=== PATIENT | female | born 1935 | race Caucasian/White ===

== ENCOUNTER 2016-11-11 22:56 | Inpatient (IN) | payer MEDICARE, BC ==
[2016-11-11] MEDS ORDERED: MORPHINE SULFATE 4 MG/ML SYRINGE IV STA (23:33)
[2016-11-11 23:48] LABS: Basophils % (A) 0 %; CH 32.5; CHCM 33.8; Eosinophils # (A) 0.1 k/uL (0-0.7); Eosinophils % (A) 1 %; HCT 34.9 % (34.0-46.0); HDW 2.76; HGB 11.5 gm/dL (11.4-16.0); Luc # (Auto) 0.14; Luc % (Auto) 1; Lymphocytes # (A) 0.6 k/uL (1.0-4.8); Lymphocytes % (A) 5 %; MCH 31.9 pg (25.0-35.0); MCV 96.8 fL (80.0-100.0); Mean Platelet Volume 9.7; Monocytes # (A) 0.6 k/uL (0-1.0); Monocytes % (A) 5 %; Neutrophils # (A) 10.6 k/uL (1.3-7.7); Neutrophils % (A) 88 %; RBC 3.61 m/uL (3.80-5.40); RDW 14.3 % (11.5-15.5); WBC (Perox) 12.61
[2016-11-11 23:56] LABS: INR 4.6 (<1.2); Prothrombin Time 45.4 sec (9.0-12.0)
[2016-11-11 23:57] LABS: Calcium 9.2 mg/dL (8.4-10.2); Potassium 4.6 mmol/L (3.5-5.1); Total Bilirubin 0.3 mg/dL (0.2-1.3); Total Protein 6.9 g/dL (6.3-8.2)
--- NOTE | 2016-11-12 00:35 | XR ---
EXAM: XR Right Hip 2 Views CLINICAL HISTORY: Reason: fall TECHNIQUE: Frontal and crosstable lateral views of the right hip. COMPARISON: No relevant prior studies available. FINDINGS: Bones/joints: Basocervical right femoral neck fracture with 1 cm separation and superior displacement. Osteopenia. No dislocation. Soft tissues: Muscle atrophy. IMPRESSION: Basocervical right femoral neck fracture with 1 cm separation and superior displacement.
--- NOTE | 2016-11-12 00:42 | XR ---
EXAM: XR Chest, 1 View CLINICAL HISTORY: Reason: fall TECHNIQUE: Frontal view of the chest. COMPARISON: 11/06/15 FINDINGS: Lungs: Granulomatous calcifications over right upper lung zone are again noted. Otherwise lungs are clear Pleural space: Unremarkable. No pneumothorax. Heart: Unremarkable. No cardiomegaly. Mediastinum: Unremarkable. Bones/joints: Unremarkable. Vasculature: Aorta is calcified IMPRESSION: No acute findings or change.
[2016-11-12] MEDS ORDERED: ACETAMINOPHEN TAB 325 MG TAB PO PRN (01:12)
[2016-11-12] MEDS ORDERED: NALOXONE 0.4 MG/ML 1 ML VIAL IV PRN (01:12)
[2016-11-12] MEDS ORDERED: ONDANSETRON 4 MG/2 ML VIAL IVP PRN (01:12)
[2016-11-12] MEDS: SODIUM CHLORIDE 0.9% 1,000 ML IV SCH ×2 (01:22→16:56)
[2016-11-12] MEDS ORDERED: ALPRAZolam 0.25 MG TAB PO PRN (01:25)
--- NOTE | 2016-11-12 01:25 | ED ---
General Adult HPI - General Chief complaint: Fall Stated complaint: Fall Time Seen by Provider: 11/11/16 23:07 Source: patient, family, RN notes reviewed Mode of arrival: wheelchair Limitations: no limitations - History of Present Illness Initial comments: 81-year-old female presents status post fall. Patient was trying to look the television, and tripped falling onto her right side. Patient's chief complaint is right hip pain. She was unable to ambulate after the fall. There is no head or neck trauma. Patient has no chest pain or shortness breath, no abdominal pain. No other pain complaints besides right hip pain is constant, worse with movement. Patient is on Coumadin. - Related Data Home Medications Medication Instructions Recorded Confirmed Acetaminophen Tab [Tylenol] 650 mg PO Q4H PRN 01/05/14 11/11/16 Amiodarone [Cordarone] 200 mg PO DAILY 01/05/14 11/11/16 Atorvastatin [Lipitor] 10 mg PO HS 01/05/14 11/11/16 Cholecalciferol [Vitamin D3] 400 unit PO DAILY 01/05/14 11/11/16 Fluticasone/Salmeterol [Advair 1 puff INHALATION RT-BID 01/05/14 11/11/16 250-50 Diskus] Multivitamins, Thera [Multivitamin 1 tab PO DAILY 01/05/14 11/11/16 (formulary)] Omeprazole [PriLOSEC] 40 mg PO AC-BRKFST 01/05/14 11/11/16 Warfarin [Coumadin] 2.5 mg PO MOTH 01/05/14 11/11/16 ALPRAZolam [Xanax] 0.25 mg PO HS PRN 01/07/14 11/11/16 Famotidine [Pepcid] 20 mg PO BID 11/06/15 11/11/16 Furosemide [Lasix] 20 mg PO DAILY 11/06/15 11/11/16 Ipratropium-Albuterol Nebulize 3 ml INHALATION RT-TID 11/06/15 11/11/16 [Duoneb 0.5 mg-3 mg/3 ml Soln] Tiotropium 18 Mcg/Puff [Spiriva] 1 cap INHALATION RT-DAILY 11/06/15 11/11/16 Warfarin [Coumadin] 1.25 mg PO [id number] 11/06/15 11/11/16 Previous Rx's Medication Instructions Recorded Digoxin [Lanoxin] 125 mcg PO DAILY #30 tab 01/10/14 Metoprolol Tartrate [Lopressor] 25 mg PO BID #60 tab 01/10/14 Lisinopril [Zestril] 20 mg PO DAILY #30 tab 11/10/15 Meclizine [Antivert] 25 mg PO TID #15 tab 11/10/15 Allergies Allergy/AdvReac Type Severity Reaction Status Date / Time No Known Allergies Allergy Verified 11/11/16 23:03 Review of Systems ROS Statement: Those systems with pertinent positive or pertinent negative responses have been documented in the HPI. ROS Other: All systems not noted in ROS Statement are negative. Past Medical History Past Medical History: Atrial Fibrillation, Heart Failure, COPD, GI Bleed, Hypertension, Liver Disease, Pneumonia, Respiratory Disorder Additional Past Medical History / Comment(s): Home O2 at 2L/NC most of the time , bilateral leg blockages and an aortic aneurysm being monitored by dr. pena. 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 History of Any Multi-Drug Resistant Organisms: None Reported Additional Past Surgical History / Comment(s): STOMACH REPAIR FROM BLEEDING IN 2006. COLONOSCOPY IN 2007 WHERE HER BOWEL WAS NICKED AND SHE WENT FOR SURGICAL REPAIR. ONE OVARY REMOVED DUE TO CYST YEARS AGO. Past Anesthesia/Blood Transfusion Reactions: No Reported Reaction Additional Past Anesthesia/Blood Transfusion Reaction / Comment(s): PT RECIEVED BLOOD 45YRS AGO AFTER MISCARRIAGE-NO REACTION. Past Psychological History: No Psychological Hx Reported Smoking Status: Former smoker Past Alcohol Use History: None Reported Past Drug Use History: None Reported - Past Family History Father Family Medical History: Coronary Artery Disease (CAD), Myocardial Infarction ([place] ) Additional Family Medical History / Comment(s): FATHER AT AGE 66 OF [place] Mother Family Medical History: No Reported History Additional Family Medical History / Comment(s): MOTHER AT AGE 82 OF "OLD AGE" General Exam Limitations: no limitations General appearance: alert, in no apparent distress Head exam: Present: atraumatic, normocephalic Eye exam: Present: normal appearance, PERRL ENT exam: Present: mucous membranes dry Neck exam: Present: normal inspection, full ROM. Absent: tenderness, meningismus Respiratory exam: Present: normal lung sounds bilaterally. Absent: respiratory distress Cardiovascular Exam: Present: normal rhythm, bradycardia GI/Abdominal exam: Present: soft. Absent: distended, tenderness Extremities exam: Present: tenderness (Right hip), normal capillary refill, other (Right lower extremity is externally rotated in mildly shortened). Absent : pedal edema Back exam: Present: normal inspection Neurological exam: Present: alert, oriented X3, CN II-XII intact. Absent: motor sensory deficit Psychiatric exam: Present: normal affect, normal mood Skin exam: Present: warm, dry, intact. Absent: cyanosis, diaphoretic Course Vital Signs 11/11/16 11/11/16 22:57 23:47 Temperature 97.1 F L Pulse Rate 55 L 50 L Respiratory 22 18 Rate Blood Pressure 216/81 179/75 O2 Sat by Pulse 94 L 97 Oximetry EKG Findings - EKG Comments: EKG Findings:: EKG shows sinus bradycardia, ventricular 50, [place] interval 164, QRS duration 80, QTc 3:30 or signs of left ventricular hypertrophy Medical Decision Making - Medical Decision Making 81-year-old female presents status post fall. Patient's found to have her right femoral neck fracture. No other injuries noted on examination. There is no head or neck trauma. Patient is on Coumadin for atrial fibrillation, INR is supratherapeutic at 4.6. Other laboratory studies reveal stable hemoglobin 0.5 , creatinine is 1.2 mildly elevated. Chest x-ray shows no acute findings. Patient is started on IV hydration. Case is discussed with orthopedic surgery and she will be admitted for operative repair of right hip fracture. Internal medicine is placed on consult for medical clearance, and INR reversal. Diagnosis: Right hip fracture - Lab Data Result diagrams: 11/11/16 23:25 11/11/16 23:25 Lab Results 11/11/16 11/11/16 11/11/16 Range/Units 23:25 23:25 23:25 WBC 12.0 H (3.8-10.6) k/uL RBC 3.61 L (3.80-5.40) m/uL Hgb 11.5 (11.4-16.0) gm/dL Hct 34.9 (34.0-46.0) % MCV 96.8 (80.0-100.0) fL MCH 31.9 (25.0-35.0) pg MCHC 33.0 (31.0-37.0) g/dL RDW 14.3 (11.5-15.5) % Plt Count 170 (150-450) k/uL Neutrophils % 88 % Lymphocytes % 5 % Monocytes % 5 % Eosinophils % 1 % Basophils % 0 % Neutrophils # 10.6 H (1.3-7.7) k/uL Lymphocytes # 0.6 L (1.0-4.8) k/uL Monocytes # 0.6 (0-1.0) k/uL Eosinophils # 0.1 (0-0.7) k/uL Basophils # 0.0 (0-0.2) k/uL PT (9.0-12.0) sec INR (<1.2) APTT (22.0-30.0) sec Sodium 141 (137-145) mmol/L Potassium 4.6 (3.5-5.1) mmol/L Chloride 98 (98-107) mmol/L Carbon Dioxide 34 H (22-30) mmol/L Anion Gap 9 mmol/L BUN 23 H (7-17) mg/dL Creatinine 1.20 H (0.52-1.04) mg/dL Est GFR (MDRD) Af Amer 52 (>60 ml/min/1.73 sqM) Est GFR (MDRD) Non-Af 43 (>60 ml/min/1.73 sqM) Glucose 154 H (74-99) mg/dL Calcium 9.2 (8.4-10.2) mg/dL Total Bilirubin 0.3 (0.2-1.3) mg/dL AST 45 H (14-36) U/L ALT 60 H (9-52) U/L Alkaline Phosphatase 72 (38-126) U/L Total Protein 6.9 (6.3-8.2) g/dL Albumin 4.0 (3.5-5.0) g/dL Blood Type A Positive Blood Type Confirm Blood Type Recheck CABO Indicated Antibody Screen NEGATIVE Spec Expiration Date 11/14/2016232411/11/16 11/12/16 Range/Units 23:25 00:31 WBC (3.8-10.6) k/uL RBC (3.80-5.40) m/uL Hgb (11.4-16.0) gm/dL Hct (34.0-46.0) % MCV (80.0-100.0) fL MCH (25.0-35.0) pg MCHC (31.0-37.0) g/dL RDW (11.5-15.5) % Plt Count (150-450) k/uL Neutrophils % % Lymphocytes % % Monocytes % % Eosinophils % % Basophils % % Neutrophils # (1.3-7.7) k/uL Lymphocytes # (1.0-4.8) k/uL Monocytes # (0-1.0) k/uL Eosinophils # (0-0.7) k/uL Basophils # (0-0.2) k/uL PT 45.4 H (9.0-12.0) sec INR 4.6 H (<1.2) APTT 28.0 (22.0-30.0) sec Sodium (137-145) mmol/L Potassium (3.5-5.1) mmol/L Chloride (98-107) mmol/L Carbon Dioxide (22-30) mmol/L Anion Gap mmol/L BUN (7-17) mg/dL Creatinine (0.52-1.04) mg/dL Est GFR (MDRD) Af Amer (>60 ml/min/1.73 sqM) Est GFR (MDRD) Non-Af (>60 ml/min/1.73 sqM) Glucose (74-99) mg/dL Calcium (8.4-10.2) mg/dL Total Bilirubin (0.2-1.3) mg/dL AST (14-36) U/L ALT (9-52) U/L Alkaline Phosphatase (38-126) U/L Total Protein (6.3-8.2) g/dL Albumin (3.5-5.0) g/dL Blood Type Blood Type Confirm A Positive Blood Type Recheck Antibody Screen Spec Expiration Date Disposition Clinical Impression: Hip fracture, right Disposition: ADMITTED IP TO THIS [facility] Condition: Stable Referrals: Magui Kim MD [Primary Care Provider] - 1-2 days Decision to Admit Reason: Admit from EC Decision Date: 11/12/16 Decision Time: 01:25
[2016-11-12] MEDS: MECLIZINE 25 MG TAB PO SCH ×2 (08:00→16:30)
[2016-11-12] MEDS: METOPROLOL TARTRATE 25 MG TAB PO SCH ×2 (08:00→23:55)
[2016-11-12] MEDS: FUROSEMIDE 20 MG TAB PO SCH (08:00)
[2016-11-12] MEDS ORDERED: DIGOXIN 125 MCG TAB PO SCH (09:00)
[2016-11-12] MEDS: MORPHINE SULFATE 4 MG/ML SYRINGE IV PRN ×2 (09:26→12:55)
--- NOTE | 2016-11-12 14:21 | P.HPOR ---
History of Present Illness H&P Date: 11/12/16 Chief Complaint: Right hip fracture Patient is a pleasant 81-year-old female seen at bedside this afternoon. She was admitted through the emergency department yesterday after a fall at home. She states she lives at home alone, was walking to her pantry, stumbled and fell to her right side. She was unable to ambulate after her fall. She's had pain at the right hip and lower extremity. X-rays through the emergency department showed a right hip femoral neck fracture. She was admitted to orthopedics for further evaluation and treatment. She has a past medical history positive for atrial fibrillation and history of HI. She's been on chronic Coumadin. PT yesterday resulted in 4.6 which is supratherapeutic. Internal medicine has been consulted for further evaluation and management and preoperative clearance. She continues to have right hip/groin pain. She has no other complaints today. Review of systems is negative for fever, chills, chest pain, nausea, vomiting, dizziness, headaches, rashes, numbness, tingling, slurred speech or other. Review of Systems All systems: negative Constitutional: Denies chills, Denies fever Eyes: denies blurred vision, denies pain Ears, nose, mouth and throat: Denies headache, Denies sore throat Cardiovascular: Reports shortness of breath, Denies chest pain, Denies leg edema Respiratory: Reports cough, Denies pain Gastrointestinal: Denies abdominal pain, Denies diarrhea, Denies nausea, Denies vomiting Genitourinary: Denies dysuria, Denies hematuria Musculoskeletal: Denies myalgias Integumentary: Denies pruritus, Denies rash Neurological: Denies numbness, Denies weakness Psychiatric: Denies anxiety, Denies depression Endocrine: Denies fatigue, Denies weight change Past Medical History Past Medical History: Atrial Fibrillation, Heart Failure, COPD, GI Bleed, Hypertension, Liver Disease, Pneumonia, Respiratory Disorder Additional Past Medical History / Comment(s): Home O2 at 2L/NC most of the time , bilateral leg blockages and an aortic aneurysm being monitored by dr. pena. 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 History of Any Multi-Drug Resistant Organisms: None Reported Additional Past Surgical History / Comment(s): STOMACH REPAIR FROM BLEEDING IN 2006. COLONOSCOPY IN 2007 WHERE HER BOWEL WAS NICKED AND SHE WENT FOR SURGICAL REPAIR. ONE OVARY REMOVED DUE TO CYST YEARS AGO. Past Anesthesia/Blood Transfusion Reactions: No Reported Reaction Additional Past Anesthesia/Blood Transfusion Reaction / Comment(s): PT RECIEVED BLOOD 45YRS AGO AFTER MISCARRIAGE-NO REACTION. Past Psychological History: No Psychological Hx Reported Additional Psychological History / Comment(s): PT LIVES ALONE BUT SON AND GIRLFRIEND LIVE NEXT DOOR AND HELP HER WITH ANYTHING SHE NEEDS. NORMALLY SHE IS UP AND ABOUT ALL THE TIME. USES A WALKER AT TIMES. Has home O2/nebulizer. Pt has not driven for 1 month-unsure if she will have a syncopal episode-family takes her to appts. Smoking Status: Former smoker Past Alcohol Use History: None Reported Past Drug Use History: None Reported - Past Family History Father Family Medical History: Coronary Artery Disease (CAD), Myocardial Infarction ([place] ) Additional Family Medical History / Comment(s): FATHER AT AGE 66 OF [place] Mother Family Medical History: No Reported History Additional Family Medical History / Comment(s): MOTHER AT AGE 82 OF "OLD AGE" Medications and Allergies Home Medications Medication Instructions Recorded Confirmed Type Acetaminophen Tab [Tylenol] 650 mg PO Q4H PRN 01/05/14 11/12/16 History Amiodarone [Cordarone] 200 mg PO DAILY 01/05/14 11/12/16 History Atorvastatin [Lipitor] 10 mg PO HS 01/05/14 11/12/16 History Cholecalciferol [Vitamin D3] 400 unit PO DAILY 01/05/14 11/12/16 History Fluticasone/Salmeterol [Advair 1 puff INHALATION RT-BID 01/05/14 11/12/16 History 250-50 Diskus] Multivitamins, Thera [Multivitamin 1 tab PO DAILY 01/05/14 11/12/16 History (formulary)] Omeprazole [PriLOSEC] 40 mg PO AC-BRKFST 01/05/14 11/12/16 History Warfarin [Coumadin] 2.5 mg PO HS 01/05/14 11/12/16 History ALPRAZolam [Xanax] 0.25 mg PO HS PRN 01/07/14 11/12/16 History Digoxin [Lanoxin] 125 mcg PO DAILY #30 tab 01/10/14 11/12/16 Rx Metoprolol Tartrate [Lopressor] 25 mg PO BID #60 tab 01/10/14 11/12/16 Rx Famotidine [Pepcid] 20 mg PO BID 11/06/15 11/12/16 History Furosemide [Lasix] 20 mg PO DAILY 11/06/15 11/12/16 History Ipratropium-Albuterol Nebulize 3 ml INHALATION RT-TID PRN 11/06/15 11/12/16 History [Duoneb 0.5 mg-3 mg/3 ml Soln] Tiotropium 18 Mcg/Puff [Spiriva] 1 cap INHALATION RT-DAILY 11/06/15 11/12/16 History Lisinopril [Zestril] 20 mg PO DAILY #30 tab 11/10/15 11/12/16 Rx Latanoprost Ophth [Xalatan 0.005%] 1 drops BOTH EYES HS 11/12/16 11/12/16 History Allergies Allergy/AdvReac Type Severity Reaction Status Date / Time No Known Allergies Allergy Verified 11/11/16 23:03 Physical Examination Inspection of the right lower extremity shows a shortened external rotated right leg. Range of motion of the right hip is not tested due to fracture. There is no open wounds, erythema or lacerations. Neurovascular status is intact with motor and sensation throughout the right lower extremity. Calf is soft and nontender. There is 2+ dorsalis pedis pulse and less than 2 second cap refill. Results - Labs Labs: Abnormal Lab Results - Last 24 Hours (Table) 11/11/16 11/11/16 11/11/16 Range/Units 23:25 23:25 23:25 WBC 12.0 H (3.8-10.6) k/uL RBC 3.61 L (3.80-5.40) m/uL Neutrophils # 10.6 H (1.3-7.7) k/uL Lymphocytes # 0.6 L (1.0-4.8) k/uL PT 45.4 H (9.0-12.0) sec INR 4.6 H (<1.2) Carbon Dioxide 34 H (22-30) mmol/L BUN 23 H (7-17) mg/dL Creatinine 1.20 H (0.52-1.04) mg/dL Glucose 154 H (74-99) mg/dL AST 45 H (14-36) U/L ALT 60 H (9-52) U/L H & H 11/11/16 Range/Units 23:25 Hgb 11.5 (11.4-16.0) gm/dL Hct 34.9 (34.0-46.0) % Coagulation 11/11/16 Range/Units 23:25 INR 4.6 H (<1.2) Result Diagrams: 11/11/16 23:25 11/11/16 23:25 - Diagnostic results Hip x-ray: report reviewed, image reviewed (Right Hip x-ray shows a femoral neck fracture with shortening and displacement.) Assessment and Plan (1) Hip fracture, right Narrative/Plan: This patient has been reviewed with Dr. Almanzar. Plan is to proceed with surgical intervention including a cemented right hip hemiarthroplasty once her INR level comes down and she is cleared by internal medicine/cardiology. She is tentatively scheduled for 12 PM tomorrow 11/13/2016. She is nothing by mouth after midnight and the procedure has been scheduled and ordered. Status: Acute Time with Patient: Less than 30
[2016-11-12] MEDS ORDERED: PHYTONADIONE ORAL 5 MG/5 ML ORAL.SYRG PO STA (15:00)
--- NOTE | 2016-11-12 16:08 | P.CNPUL ---
History of Present Illness Consult date: 11/12/16 Requesting physician: Gavin Del Valle Reason for consult: COPD Chief complaint: COPD and right hip fracture History of present illness: This is an 81-year-old female with history of severe end-stage COPD, gold stage IV, O2 dependent, but not prednisone dependent, normally sees Dr. Hastings in the office. Patient fell today, and she landed on her right side. Apparently when she was trying to get to that television, patient tripped and fell on the right side. X-rays of the hip showed right hip fracture, patient was admitted, she was seen by orthopedics on consultation, surgery is being considered, I was asked to see her on consultation for preoperative pulmonary clearance. Patient has chronic shortness of breath, occasional episodes of cough wheezing, no chest pain, no fever, no chills, no hemoptysis. Chest x-ray showed COPD and no evidence of active disease. Patient is also known to have history of chronic atrial fibrillation. On Coumadin. History of congestive heart failure. GI bleeding. And previous history of abdominal aortic aneurysm, spinal stenosis, gastritis, chronic liver disease secondary to old dennis level of this disease, and history of protein calorie malnutrition. Review of Systems 14 point review of systems were obtained, patient denies any headaches no blurred vision no dizziness. No chest pain, no cough no wheezing no fever no chills no hemoptysis, she has chronic shortness of breath on exertion. Denies any chest pain, no palpitations, no nausea no vomiting no abdominal pain no melena no hematemesis no dysuria and no frequency no urgency. Patient has pain related to her right hip fracture. Past Medical History Past Medical History: Atrial Fibrillation, Heart Failure, COPD, GI Bleed, Hypertension, Liver Disease, Pneumonia, Respiratory Disorder Additional Past Medical History / Comment(s): Home O2 at 2L/NC most of the time , bilateral leg blockages and an aortic aneurysm being monitored by dr. pena. 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 History of Any Multi-Drug Resistant Organisms: None Reported Additional Past Surgical History / Comment(s): STOMACH REPAIR FROM BLEEDING IN 2006. COLONOSCOPY IN 2007 WHERE HER BOWEL WAS NICKED AND SHE WENT FOR SURGICAL REPAIR. ONE OVARY REMOVED DUE TO CYST YEARS AGO. Past Anesthesia/Blood Transfusion Reactions: No Reported Reaction Additional Past Anesthesia/Blood Transfusion Reaction / Comment(s): PT RECIEVED BLOOD 45YRS AGO AFTER MISCARRIAGE-NO REACTION. Past Psychological History: No Psychological Hx Reported Additional Psychological History / Comment(s): PT LIVES ALONE BUT SON AND GIRLFRIEND LIVE NEXT DOOR AND HELP HER WITH ANYTHING SHE NEEDS. NORMALLY SHE IS UP AND ABOUT ALL THE TIME. USES A WALKER AT TIMES. Has home O2/nebulizer. Pt has not driven for 1 month-unsure if she will have a syncopal episode-family takes her to appts. Smoking Status: Former smoker Past Alcohol Use History: None Reported Past Drug Use History: None Reported - Past Family History Father Family Medical History: Coronary Artery Disease (CAD), Myocardial Infarction ([place] ) Additional Family Medical History / Comment(s): FATHER AT AGE 66 OF [place] Mother Family Medical History: No Reported History Additional Family Medical History / Comment(s): MOTHER AT AGE 82 OF "OLD AGE" Medications and Allergies Home Medications Medication Instructions Recorded Confirmed Type Acetaminophen Tab [Tylenol] 650 mg PO Q4H PRN 01/05/14 11/12/16 History Amiodarone [Cordarone] 200 mg PO DAILY 01/05/14 11/12/16 History Atorvastatin [Lipitor] 10 mg PO HS 01/05/14 11/12/16 History Cholecalciferol [Vitamin D3] 400 unit PO DAILY 01/05/14 11/12/16 History Fluticasone/Salmeterol [Advair 1 puff INHALATION RT-BID 01/05/14 11/12/16 History 250-50 Diskus] Multivitamins, Thera [Multivitamin 1 tab PO DAILY 01/05/14 11/12/16 History (formulary)] Omeprazole [PriLOSEC] 40 mg PO AC-BRKFST 01/05/14 11/12/16 History Warfarin [Coumadin] 2.5 mg PO HS 01/05/14 11/12/16 History ALPRAZolam [Xanax] 0.25 mg PO HS PRN 01/07/14 11/12/16 History Digoxin [Lanoxin] 125 mcg PO DAILY #30 tab 01/10/14 11/12/16 Rx Metoprolol Tartrate [Lopressor] 25 mg PO BID #60 tab 01/10/14 11/12/16 Rx Famotidine [Pepcid] 20 mg PO BID 11/06/15 11/12/16 History Furosemide [Lasix] 20 mg PO DAILY 11/06/15 11/12/16 History Ipratropium-Albuterol Nebulize 3 ml INHALATION RT-TID PRN 11/06/15 11/12/16 History [Duoneb 0.5 mg-3 mg/3 ml Soln] Tiotropium 18 Mcg/Puff [Spiriva] 1 cap INHALATION RT-DAILY 11/06/15 11/12/16 History Lisinopril [Zestril] 20 mg PO DAILY #30 tab 11/10/15 11/12/16 Rx Latanoprost Ophth [Xalatan 0.005%] 1 drops BOTH EYES HS 11/12/16 11/12/16 History Allergies Allergy/AdvReac Type Severity Reaction Status Date / Time No Known Allergies Allergy Verified 11/11/16 23:03 Physical Exam Vitals: Vital Signs Temp Pulse Pulse Resp BP BP Pulse Ox 11/12/16 15:00 98.0 F 60 17 179/63 93 L 11/12/16 11:06 97.4 F L 60 19 136/59 98 11/12/16 08:41 96.9 F L 54 L 18 184/75 98 11/12/16 03:10 98.1 F 54 L 18 153/62 96 11/12/16 01:15 98.7 F 55 L 18 170/70 97 11/11/16 23:47 50 L 18 179/75 97 11/11/16 22:57 97.1 F L 55 L 22 216/81 94 L Intake and Output 11/12/16 11/12/16 11/12/16 06:59 14:59 22:59 Intake Total 225 Output Total 500 Balance 225 -500 Intake: Intake, IV Titration 225 Amount Sodium Chloride 0.9% 1, 225 000 ml @ 75 mls/hr IV . [id number] [facility] Rx#:[id number] Output: Urine 500 Other: Voiding Method Indwelling Catheter Indwelling Catheter Weight 33.112 kg 33.112 kg Patient Weight 11/13/16 06:59 Weight 33.112 kg Physical Exam: Revealed an 81-year-old female, frail looking, chronically ill, in no form of respiratory distress. HEENT:[Neck is supple.] [No neck masses.] [No thyromegaly.] [No JVD.] Chest: [Diminished breath sounds at the bases, no crackles or rhonchi or wheezes ] Cardiac Exam: [Normal S1 and S2, no S3 gallop, no murmur.] Abdomen: [Soft, nontender, no megaly, no rebound, no guarding, normal bowel sounds.] Extremities: [No clubbing, no edema, no cyanosis. External rotation of the right lower extremity is noted] Neurological Exam: [No focal neurologic deficit.] Results - Laboratory Findings CBC and BMP: 11/11/16 23:25 11/11/16 23:25 PT/INR, D-dimer PT 45.4 sec (9.0-12.0) H 11/11/16 23:25 INR 4.6 (<1.2) H 11/11/16 23:25 Abnormal lab findings: Abnormal Labs 11/11/16 11/11/16 11/11/16 23:25 23:25 23:25 WBC 12.0 H RBC 3.61 L Neutrophils # 10.6 H Lymphocytes # 0.6 L PT 45.4 H INR 4.6 H Carbon Dioxide 34 H BUN 23 H Creatinine 1.20 H Glucose 154 H AST 45 H ALT 60 H - Diagnostic Findings Chest x-ray: image reviewed (COPD, no evidence of active disease.) Additional studies: Right hip chest x-ray showed right femoral neck fracture and superior displacement. Assessment and Plan Plan: Impression: 1 acute right hip fracture/right femoral neck with separation and superior displacement 2 severe gold stage IV COPD, chronic hypoxic respiratory failure. Secondary to COPD. 3 history of multiple comorbidities including peripheral vessel occlusive disease, abdominal aortic aneurysm, spinal stenosis, chronic liver disease/ granulomatous disease, history of protein calorie malnutrition, history of stomach bleeding requiring repair in 2006. History of chronic atrial fibrillation, on Coumadin. And on amiodarone. Recommendation: Continue present treatment plan including bronchodilators, O2, patient is definitely a high surgical risk, but no absolute contraindication to surgery, however if surgery is to be done, I would strongly recommend surgery under spinal anesthesia or other than general anesthesia, mostly because of her underlying COPD, and this patient to be difficult to wean and extubate excess fully within a short period of time. We'll continue to follow. Time with Patient: Greater than 30
[2016-11-12 16:40] LABS: Appearance,Urine Clear (Clear); Bacteria,Urine Rare /hpf; Bilirubin,Urine Negative (Negative); Glucose,Urine (UA) Negative (Negative); Ketones,Urine Negative (Negative); Leukocyte Esterase,Urine Large (Negative); Mucus,Urine Rare /hpf; Nitrite,Urine Negative (Negative); Particle Count 2300; Protein,Urine Trace (Negative); RBC,Urine >182 /hpf (0-5); Specific Gravity,Urine 1.011 (1.001-1.035); UA Billing (MACRO vs. MICRO) MICRO; Urobilinogen,Urine <2.0 mg/dL (<2.0); WBC,Urine 70 /hpf (0-5)
[2016-11-12] MEDS ORDERED: predniSONE 20 MG TAB PO STA (18:40)
--- NOTE | 2016-11-12 18:40 | P.CONS ---
History of Present Illness - Reason for Consult Consult date: 11/12/16 Medical clearance - History of Present Illness 81-year-old female with history of COPD, end-stage chronic hypoxic respiratory failure comes in to the hospital after sustaining a fall patient apparently walked into her closet and thereafter sustained a fall patient was noted to have a hip fracture patient has never lost consciousness nor hit her head. Consultation was requested for medical clearance and management of her chronic issues as well Patient has a history of COPD, CAD, abdominal aortic aneurysm. Patient has also been having a cough for the last 3-4 days. A chest x-ray does not show any pneumonic infiltrate at this time continues to be on 2 L supplemental oxygen She has a history of CAD underwent a cardiac catheterization in October 2015 no intervention was performed at that time. At this time patient main complaint is that she has pain in her hip denies having any fevers chills nausea vomiting diarrhea in the recent times Review of systems a 14 point review of systems was done nonpertinent then all as mentioned above Gen. appearance cachectic does not appear to be in distress Neck is supple no JVD Lungs diminished breath sounds rhonchi appreciated bilaterally however transmitted from the hypopharynx Heart S1-S2 heard no murmurs appreciated regular rate and rhythm abdomen is soft nontender no organomegaly hip flexion produces tenderness Aguayo catheter is in place Neuro no focal motor or sensory deficits. Assessment and plan #1 hip fracture #2 acute bronchitis. #3 end-stage COPD #4 chronic hypoxic respiratory failure or graft #5 CAD #6 abdominal aortic aneurysm #7 severe protein calorie malnutrition #8 Coumadin coagulopathy #9 history of atrial fibrillation. Plan I did discuss the case with orthopedics. Patient is a high risk from a cardiovascular and a pulmonary perspective however did recommend evaluation by her form carpenter. Discussed that if patient is intubated for general anesthesia would likely be extremely difficult for the patient to wean off the ventilator however patient does need to undergo the surgery. Patient verbalized understanding her risks. 5 mg of vitamin K will also be given an order for the surgical procedure tomorrow We'll follow patient along with you thank you for the consultation. Past Medical History Past Medical History: Atrial Fibrillation, Heart Failure, COPD, GI Bleed, Hypertension, Liver Disease, Pneumonia, Respiratory Disorder Additional Past Medical History / Comment(s): Home O2 at 2L/NC most of the time , bilateral leg blockages and an aortic aneurysm being monitored by dr. pena. 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 History of Any Multi-Drug Resistant Organisms: None Reported Additional Past Surgical History / Comment(s): STOMACH REPAIR FROM BLEEDING IN 2006. COLONOSCOPY IN 2007 WHERE HER BOWEL WAS NICKED AND SHE WENT FOR SURGICAL REPAIR. ONE OVARY REMOVED DUE TO CYST YEARS AGO. Past Anesthesia/Blood Transfusion Reactions: No Reported Reaction Additional Past Anesthesia/Blood Transfusion Reaction / Comm: PT RECIEVED BLOOD 45YRS AGO AFTER MISCARRIAGE-NO REACTION. Past Psychological History: No Psychological Hx Reported Additional Psychological History / Comment(s): PT LIVES ALONE BUT SON AND GIRLFRIEND LIVE NEXT DOOR AND HELP HER WITH ANYTHING SHE NEEDS. NORMALLY SHE IS UP AND ABOUT ALL THE TIME. USES A WALKER AT TIMES. Has home O2/nebulizer. Pt has not driven for 1 month-unsure if she will have a syncopal episode-family takes her to appts. Smoking Status: Former smoker Past Alcohol Use History: None Reported Past Drug Use History: None Reported - Past Family History Father Family Medical History: Coronary Artery Disease (CAD), Myocardial Infarction (OR ) Additional Family Medical History / Comment(s): FATHER AT AGE 66 OF OR Mother Family Medical History: No Reported History Additional Family Medical History / Comment(s): MOTHER AT AGE 82 OF "OLD AGE" Medications and Allergies Home Medications Medication Instructions Recorded Confirmed Type Acetaminophen Tab [Tylenol] 650 mg PO Q4H PRN 01/05/14 11/12/16 History Amiodarone [Cordarone] 200 mg PO DAILY 01/05/14 11/12/16 History Atorvastatin [Lipitor] 10 mg PO HS 01/05/14 11/12/16 History Cholecalciferol [Vitamin D3] 400 unit PO DAILY 01/05/14 11/12/16 History Fluticasone/Salmeterol [Advair 1 puff INHALATION RT-BID 01/05/14 11/12/16 History 250-50 Diskus] Multivitamins, Thera [Multivitamin 1 tab PO DAILY 01/05/14 11/12/16 History (formulary)] Omeprazole [PriLOSEC] 40 mg PO AC-BRKFST 01/05/14 11/12/16 History Warfarin [Coumadin] 2.5 mg PO HS 01/05/14 11/12/16 History ALPRAZolam [Xanax] 0.25 mg PO HS PRN 01/07/14 11/12/16 History Digoxin [Lanoxin] 125 mcg PO DAILY #30 tab 01/10/14 11/12/16 Rx Metoprolol Tartrate [Lopressor] 25 mg PO BID #60 tab 01/10/14 11/12/16 Rx Famotidine [Pepcid] 20 mg PO BID 11/06/15 11/12/16 History Furosemide [Lasix] 20 mg PO DAILY 11/06/15 11/12/16 History Ipratropium-Albuterol Nebulize 3 ml INHALATION RT-TID PRN 11/06/15 11/12/16 History [Duoneb 0.5 mg-3 mg/3 ml Soln] Tiotropium 18 Mcg/Puff [Spiriva] 1 cap INHALATION RT-DAILY 11/06/15 11/12/16 History Lisinopril [Zestril] 20 mg PO DAILY #30 tab 11/10/15 11/12/16 Rx Latanoprost Ophth [Xalatan 0.005%] 1 drops BOTH EYES HS 11/12/16 11/12/16 History Allergies Allergy/AdvReac Type Severity Reaction Status Date / Time No Known Allergies Allergy Verified 11/11/16 23:03 Physical Exam Vitals: Vital Signs Temp Pulse Pulse Resp BP BP Pulse Ox 11/12/16 15:00 98.0 F 60 17 179/63 93 L 11/12/16 11:06 97.4 F L 60 19 136/59 98 11/12/16 08:41 96.9 F L 54 L 18 184/75 98 11/12/16 03:10 98.1 F 54 L 18 153/62 96 11/12/16 01:15 98.7 F 55 L 18 170/70 97 11/11/16 23:47 50 L 18 179/75 97 11/11/16 22:57 97.1 F L 55 L 22 216/81 94 L Intake and Output 11/12/16 11/12/16 11/12/16 06:59 14:59 22:59 Intake Total 225 Output Total 500 200 Balance 225 -500 -200 Intake: Intake, IV Titration 225 Amount Sodium Chloride 0.9% 1, 225 000 ml @ 75 mls/hr IV . [id number] [facility] Rx#:[id number] Output: Urine 500 200 Other: Voiding Method Indwelling Catheter Indwelling Catheter Indwelling Catheter Weight 33.112 kg 33.112 kg Patient Weight 11/13/16 06:59 Weight 33.112 kg Results CBC & Chem 7: 11/11/16 23:25 11/11/16 23:25 Labs: Abnormal Lab Results - Last 24 Hours (Table) 11/11/16 11/11/16 11/11/16 Range/Units 23:25 23:25 23:25 WBC 12.0 H (3.8-10.6) k/uL RBC 3.61 L (3.80-5.40) m/uL Neutrophils # 10.6 H (1.3-7.7) k/uL Lymphocytes # 0.6 L (1.0-4.8) k/uL PT 45.4 H (9.0-12.0) sec INR 4.6 H (<1.2) Carbon Dioxide 34 H (22-30) mmol/L BUN 23 H (7-17) mg/dL Creatinine 1.20 H (0.52-1.04) mg/dL Glucose 154 H (74-99) mg/dL AST 45 H (14-36) U/L ALT 60 H (9-52) U/L Urine Protein (Negative) Urine Blood (Negative) Ur Leukocyte Esterase (Negative) Urine RBC (0-5) /hpf Urine WBC (0-5) /hpf Urine WBC Clumps (None) /hpf Urine Bacteria (None) /hpf Urine Mucus (None) /hpf Urine Yeast (Budding) (None) /hpf 11/12/16 Range/Units 16:00 WBC (3.8-10.6) k/uL RBC (3.80-5.40) m/uL Neutrophils # (1.3-7.7) k/uL Lymphocytes # (1.0-4.8) k/uL PT (9.0-12.0) sec INR (<1.2) Carbon Dioxide (22-30) mmol/L BUN (7-17) mg/dL Creatinine (0.52-1.04) mg/dL Glucose (74-99) mg/dL AST (14-36) U/L ALT (9-52) U/L Urine Protein Trace H (Negative) Urine Blood Moderate H (Negative) Ur Leukocyte Esterase Large H (Negative) Urine RBC >182 H (0-5) /hpf Urine WBC 70 H (0-5) /hpf Urine WBC Clumps Few H (None) /hpf Urine Bacteria Rare H (None) /hpf Urine Mucus Rare H (None) /hpf Urine Yeast (Budding) Occasional H (None) /hpf
[2016-11-12] MEDS: SYMBICORT 160-4.5 MCG INHALER INHALATION SCH (21:08)
[2016-11-12] MEDS: IPRATROPIUM-ALBUTEROL 3 ML NEB INHALATION SCH (21:08)
[2016-11-12] MEDS: AMIODARONE 200 MG TAB PO SCH (21:40)
[2016-11-12] MEDS: LISINOPRIL 20 MG TAB PO SCH (21:40)
[2016-11-12] MEDS: AZITHROMYCIN 250 MG TAB PO SCH (21:40)
[2016-11-12] MEDS: ATORVASTATIN 10 MG TAB PO SCH (23:40)
[2016-11-13] MEDS: SODIUM CHLORIDE 0.9% 1,000 ML IV SCH ×2 (03:02→18:43)
[2016-11-13] MEDS: MORPHINE SULFATE 4 MG/ML SYRINGE IV PRN ×3 (03:19→12:13)
[2016-11-13] MEDS: SYMBICORT 160-4.5 MCG INHALER INHALATION SCH ×2 (07:07→19:59)
[2016-11-13] MEDS: IPRATROPIUM-ALBUTEROL 3 ML NEB INHALATION SCH ×4 (07:07→20:00)
[2016-11-13 07:08] LABS: INR 2.4 (<1.2); Prothrombin Time 23.3 sec (9.0-12.0)
[2016-11-13] MEDS ORDERED: PHYTONADIONE ORAL 5 MG/5 ML ORAL.SYRG PO STA (08:39)
[2016-11-13] MEDS: LISINOPRIL 20 MG TAB PO SCH (08:43)
[2016-11-13] MEDS: AMIODARONE 200 MG TAB PO SCH (08:43)
[2016-11-13] MEDS: METOPROLOL TARTRATE 25 MG TAB PO SCH ×2 (09:43→22:43)
[2016-11-13] MEDS: FUROSEMIDE 20 MG TAB PO SCH (10:14)
--- NOTE | 2016-11-13 11:39 | P.PN ---
Subjective This is an 81-year-old female with history of severe end-stage COPD, gold stage IV, O2 dependent, but not prednisone dependent, normally sees Dr. Hastings in the office. Patient fell today, and she landed on her right side. Apparently when she was trying to get to that television, patient tripped and fell on the right side. X-rays of the hip showed right hip fracture, patient was admitted, she was seen by orthopedics on consultation, surgery is being considered, we were asked to see her on consultation for preoperative pulmonary clearance. Patient has chronic shortness of breath, occasional episodes of cough wheezing, no chest pain, no fever, no chills, no hemoptysis. Chest x-ray showed COPD and no evidence of active disease. Patient is also known to have history of chronic atrial fibrillation. On Coumadin. History of congestive heart failure. GI bleeding. And previous history of abdominal aortic aneurysm, spinal stenosis, gastritis, chronic liver disease secondary to old dennis level of this disease, and history of protein calorie malnutrition. The patient is seen again today 11/13/2016 in follow-up on the surgical floor. The plan was for hip repair this a.m. however her INR remains high at 2.4. The plan is for 2 units of fresh frozen plasma to be transfused and possible surgery later this afternoon. Currently she is resting fairly comfortably in bed. Her pain is controlled with morphine. She denies any worsening shortness of breath, cough or congestion. She is currently maintaining O2 saturations in the low 90s on 2 L/m per nasal cannula. She's afebrile. Objective - Vital Signs Vital signs: Vital Signs Temp 97.0 F L 11/13/16 11:10 Pulse 70 11/13/16 11:10 Resp 16 11/13/16 11:10 BP 189/71 11/13/16 11:10 Pulse Ox 90 L 11/13/16 11:10 Intake & Output 11/12/16 11/13/16 11/13/16 18:59 06:59 18:59 Intake Total 440 0 Output Total 700 1285 Balance -700 -845 0 Weight 33.112 kg Intake: IV 240 Sodium Chloride 0.9% 1, 240 000 ml @ 40 mls/hr IV . Q24H [facility] Rx#:[id number] Oral 200 Blood Product 0 Ffp 24 Cp2d Unit 0 [id number] Ffp 24 Cpd Unit 0 [id number] Output: Urine 700 1285 Uretheral (Aguayo) 260 Other: Voiding Method Indwelling Catheter Indwelling Catheter - Exam GENERAL EXAM: Frail, cachectic. Alert, fairly comfortable in no apparent distress. HEAD: Normocephalic. EYES: Normal reaction of pupils, equal size. NOSE: Clear with pink turbinates. THROAT: No erythema or exudates. NECK: No masses, no JVD. CHEST: No chest wall deformity. LUNGS: Equal air entry with no crackles, wheeze, rhonchi or dullness. Diminished. CVS: S1 and S2 normal with no audible murmurs, regular rhythm. ABDOMEN: No hepatosplenomegaly, normal bowel sounds, no guarding or rigidity. Extremities: There is external rotation of the right lower extremity. Trace peripheral edema. No clubbing, no cyanosis. Peripheral pulses are intact. - Labs CBC & Chem 7: 11/11/16 23:25 11/11/16 23:25 Labs: Abnormal Lab Results - Last 24 Hours (Table) 11/12/16 11/13/16 Range/Units 16:00 06:17 PT 23.3 H (9.0-12.0) sec INR 2.4 H (<1.2) Urine Protein Trace H (Negative) Urine Blood Moderate H (Negative) Ur Leukocyte Esterase Large H (Negative) Urine RBC >182 H (0-5) /hpf Urine WBC 70 H (0-5) /hpf Urine WBC Clumps Few H (None) /hpf Urine Bacteria Rare H (None) /hpf Urine Mucus Rare H (None) /hpf Urine Yeast (Budding) Occasional H (None) /hpf Microbiology - Last 24 Hours (Table) 11/12/16 16:00 Urine Culture - Preliminary Urine,Catheterized Assessment and Plan Plan: Impression: #1 Acute right hip fracture/right femoral neck with separation and superior displacement, status post fall. #2 Coagulopathy, initial INR 4.6, currently 2.4. #3 Paroxysmal atrial fibrillation, on amiodarone, anticoagulated with warfarin. #4 Severe end-stage, Gold stage IV, oxygen dependent chronic obstructive pulmonary disease, currently inactive and stable. #5 Coronary artery disease involving 40-50% stenosis of the mid left anterior descending artery per cardiac catheterization in 2016.. #6 Large infrarenal abdominal aortic aneurysm. Mid measurement 4.2 x 4.7 cm in November 2015. Being monitored in the outpatient setting. #7 Spinal stenosis. 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 #9 Peripheral vascular disease. #10 Protein calorie malnutrition. Plan: The patient was seen and evaluated by Dr. Toledo. She is a high surgical risk but no absolute contraindication for surgery. Spinal anesthesia would be preferred over general as she may be difficult to wean from the mechanical ventilator based on the severity of her COPD. 2 units of fresh frozen plasma will be given to reverse her coagulopathy and she may proceed with surgery later this afternoon. We will continue with Symbicort and DuoNeb inhalations. We'll educate her regarding the use of the incentive spirometer and cough and deep breathing exercises. We will continue to follow.
[2016-11-13 13:40] LABS: INR 1.4 (<1.2)
[2016-11-13] MEDS ORDERED: IV FLUID CONTINUATION 1,000 ML IV ONE (14:08)
[2016-11-13] MEDS ORDERED: ceFAZolin 2 GM in SODIUM CHLORIDE 0.9% 100 ML IVPB ONE (14:15)
--- NOTE | 2016-11-13 14:50 | P.PN ---
Progress Note - Text Anesthesia 1440. Spoke with Kaden Louis who is his mother's POA concerning changing his mother's CODE STATUS to full code in the immediate perioperative period to which he agreed. Dr. Almanzar will alter the patient's CODE STATUS to full code preoperatively and will order a reinstitution of the No code status in the postoperative period.
[2016-11-13] MEDS ORDERED: MAGNESIUM HYDROXIDE 2,400 MG/10 ML CUP PO PRN (15:36)
[2016-11-13] MEDS ORDERED: HYDROmorphone 1 MG/ML 1 ML SYRINGE IVP PRN ×2 (15:36)
[2016-11-13] MEDS ORDERED: TEMAZEPAM 15 MG CAP PO PRN (15:36)
[2016-11-13] MEDS ORDERED: PHENYLEPHRINE-0.9% NACL SYG 1 MG/10 ML SYRINGE ONE (15:59)
[2016-11-13] MEDS ORDERED: MIDAZOLAM 2 MG/2 ML VIAL ONE (15:59)
[2016-11-13] MEDS ORDERED: PROPOFOL 10 MG/ML 20 ML VIAL IV ONE (15:59)
[2016-11-13] MEDS ORDERED: fentaNYL (PF) 50 MCG/ML 2 ML AMP ONE (15:59)
[2016-11-13] MEDS ORDERED: LIDOCAINE 1% INJ 10MG/ML (20 ML MDV) ONE (15:59)
[2016-11-13] MEDS ORDERED: SUCCINYLCHOLINE CHLORIDE 100 MG/5 ML SYR IV ONE (15:59)
[2016-11-13] MEDS ORDERED: ceFAZolin 3,000 MG in SODIUM CHLORIDE 0.9% IRRIGATIO 3,000 ML IRRIGATION ONE (16:15)
--- NOTE | 2016-11-13 17:57 | P.OP ---
Date of Procedure: 11/13/16 Preoperative Diagnosis: 1. Left displaced, transcervical femoral neck fracture 2. Atrial fibrillation on Coumadin 3. COPD on home oxygen 4. Osteoporosis Postoperative Diagnosis: Same Procedure(s) Performed: Left hemiarthroplasty, cemented Implants: Meeta LDFX size 11 stem, size 45 mm head Anesthesia: BLANCA Surgeon: Maged Almanzar [employer] Sales Consultant #1: Jhonatan Moreno Estimated Blood Loss (ml): 300 IV fluids (ml): 100 Urine output (ml): 100 Pathology: other (Femoral head) Condition: stable Disposition: PACU Indications for Procedure: The patient is an 81-year-old female with multiple medical problems who sustained a ground-level fall resulting in a displaced left femoral neck fracture. I met with the patient and her family prior to surgery discussed treatment. It is my recommendation to perform a cemented hemiarthroplasty. We discussed the potential risks and complication of surgery including but not limited to risk of anesthesia, risk of superficial infection, risk of deep infection, risk of delayed wound healing, risk of wound necrosis, risk of intraoperative fracture, risk of postoperative fracture, risk of postoperative hip dislocation, risk of limb length discrepancy, risk of chronic pain, risk of chronic swelling, risk of inability to ambulate, risk of need for further surgery, risk of damage to the sciatic nerve, and risk of postoperative medical complications including DVT, PE, fatal PE, acute coronary event, pneumonia, urinary tract infection, pressure sore and possibly . The patient and her family understand her high risk due to her age and multiple medical problems. They provided their verbal and written consent to go forward with surgery. Operative Findings: Description of Procedure: The patient was identified in preoperative holding and the correct left leg was marked with my initials. I reviewed the consent form with the patient and her family. All their questions were answered. The patient was then brought back to the operating room. She was given a general anesthetic on the [facility] and preoperative antibiotics. The patient was then transferred onto an operating room table. She was flipped into the lateral decubitus position with her right side down and left side up. All bony prominences were well-padded. An axillary roll was placed. She was secured to the operating room table with a Montral frame. The left leg was then prepped and draped in the standard sterile fashion. Prior to surgery timeout was performed identifying the correct patient, operative extremity, and procedure. I began by outlining an incision with a skin marker for a posterolateral approach to the hip. Skin incision was made a 15 blade scalpel and dissection was carried down carefully to the subcutaneous tissue with electrocautery. The IT band was identified and incised longitudinally in line with the proximal femur. The fibers of gluteus misha were bluntly dissected. A Charnley retractor was placed. The trochanteric bursa was elevated off the posterior aspect of the femur. The leading edge of the piriformis identified and a medium Quevedo elevator was used to develop the interval between the short external rotators and hip capsule. The hip capsule was teed and there was a large adler of blood. The femoral neck fracture was immediately visible. Using a corkscrew the femoral head was removed, passed to the back table, sized and sent to pathology. The femoral head measured 44 mm. I then placed Hohmann retractors and a femoral head elevator to expose the proximal femur. A box osteotome was used to gain entrance to the proximal femur followed by a canal finder. I then reamed sequentially in 1 mm increments up to a size 12 mm reamer. I then sequentially broached in 1 mm increments up to an 11 mm broach which felt stable. A calcar planar was used to bring the femoral neck down to the level of the broach. I then trialed with a standard offset 44 mm head. The hip felt stable in all planes of motion. The hip was then gently reduced using a bone hook. The wound was copiously irrigated. A moist Ray-Branden sponge was placed in the acetabulum. The broach was removed and the canal was cleaned with irrigation and a brush. A cement restrictor was placed distally. I then pressurized cement into the proximal femur. A size 11 mm stem was gently tapped into place until the collar met the calcar. The prosthesis was held in appropriate anteversion until the cement hardened. All of this excess cement was then removed. The Ray-Branden was removed from the acetabulum. I then trialed with a standard offset 44 mm head. There are significant shuck so I elected to go up to a +7 mm implant. This felt stable. The hip was once again gently reduced using a bone hook. The wound was copiously irrigated. Final implant was dispensed. A clean sponge was used to try off the Gaona taper and the final femoral head was gently tapped into place. The hip was once again carefully reduced and stability was checked. The wound was copiously irrigated. The posterior hip capsule was closed with interrupted 0 Vicryl sutures. The piriformis was reapproximated to the posterior aspect proximal femur using #2 Ethibond. The #2 Ethibond was advanced through the greater trochanter, the piriformis tendon was grasped using a modified Mushtaq-Suraj stitch and the suture was passed back to the greater trochanter and tied over a bony bridge nicely reapproximating the piriformis tendon. The wound was once again copiously irrigated. The IT band was then reapproximated using a running oh Quill stitch. The deep subcu was reapproximated using interrupted 2-0 Vicryl. The skin was closed using a running subcuticular Monocryl Quill stitch. I verified all instrument, sponge, and sharp counts were correct. A sterile dressing consisting of Dermabond, Adaptic, 4 x 4, and ABDs was applied and secured with tape. The patient was then transferred from the operating room table to the [facility] and extubated. She was brought to PACU having tied of the procedure well. Jhonatan Moreno PA-C was required is a skilled application assistant due to the complexity of the case for patient positioning, surgical exposure, implantation of orthopedic implant, closure of the wound, application of dressing, and transferring the patient. Plan: The patient can weight-bear as tolerated on her left lower extremity. She is to follow strict posterior hip precautions for 6 weeks. She will receive Lovenox 30 mg daily for DVT prophylaxis. Dressing changes per protocol. Hip abduction while in bed. Postreduction x-rays in the PACU showed a stable implant with no signs of periprosthetic fracture. Appreciate internal medicine, cardiology, and pulmonology assistance.
[2016-11-13] MEDS ORDERED: WARFARIN 2.5 MG TAB PO ONE (18:00)
--- NOTE | 2016-11-13 18:15 | XR ---
EXAMINATION TYPE: XR Hip Limited RT DATE OF EXAM: 11/13/2016 CLINICAL HISTORY: Postoperative evaluation TECHNIQUE: Single portable view of the right hip was submitted. FINDINGS: Noted are changes of right hip arthroplasty with femoral component appearing well seated. Alignment is anatomic. Postsurgical soft tissue changes are evident. IMPRESSION: Satisfactory postoperative alignment
--- NOTE | 2016-11-13 18:43 | P.PN ---
Subjective 81-year-old female with history of COPD, end-stage chronic hypoxic respiratory failure comes in to the hospital after sustaining a fall patient apparently walked into her closet and thereafter sustained a fall patient was noted to have a hip fracture patient has never lost consciousness nor hit her head. Consultation was requested for medical clearance and management of her chronic issues as well Patient has a history of COPD, CAD, abdominal aortic aneurysm. Patient has also been having a cough for the last 3-4 days. A chest x-ray does not show any pneumonic infiltrate at this time continues to be on 2 L supplemental oxygen She has a history of CAD underwent a cardiac catheterization in October 2015 no intervention was performed at that time. At this time patient main complaint is that she has pain in her hip denies having any fevers chills nausea vomiting diarrhea in the recent times 11/13/2016 Patient is awake. INR appears to be still 2.4 Complaints of pain in her hip. No other abnormalities reported Review of systems a 14 point review of systems was done nonpertinent then all as mentioned above Gen. appearance cachectic does not appear to be in distress Neck is supple no JVD Lungs diminished breath sounds doing well. Air movement is appreciated. Heart S1-S2 heard no murmurs appreciated regular rate and rhythm abdomen is soft nontender no organomegaly hip flexion produces tenderness Aguayo catheter is in place Neuro no focal motor or sensory deficits. Assessment and plan #1 hip fracture #2 acute bronchitis. #3 end-stage COPD #4 chronic hypoxic respiratory failure or graft #5 CAD #6 abdominal aortic aneurysm #7 severe protein calorie malnutrition #8 Coumadin coagulopathy #9 history of atrial fibrillation. Plan We'll give 2 units of FFP in order to undergo surgery today. Coumadin will be restarted once cleared by orthopedics Objective - Vital Signs Vital signs: Vital Signs Temp 97.2 F L 11/13/16 17:48 Pulse 65 11/13/16 18:15 Resp 16 11/13/16 18:15 BP 178/74 11/13/16 18:15 Pulse Ox 99 11/13/16 18:15 Intake & Output 11/12/16 11/13/16 11/13/16 18:59 06:59 18:59 Intake Total 440 1098 Output Total 700 1285 200 Balance -700 -845 898 Weight 33.112 kg Intake: IV 240 601 Sodium Chloride 0.9% 1, 240 000 ml @ 40 mls/hr IV . Q24H [facility] Rx#:[id number] Oral 200 Blood Product 497 Ffp 24 Cp2d Unit 223 [id number] Ffp 24 Cpd Unit 274 [id number] Output: Urine 700 1285 100 Uretheral (Aguayo) 260 Estimated Blood Loss 100 Other: Voiding Method Indwelling Catheter Indwelling Catheter Indwelling Catheter - Labs CBC & Chem 7: 11/11/16 23:25 11/11/16 23:25 Labs: Abnormal Lab Results - Last 24 Hours (Table) 11/13/16 11/13/16 Range/Units 06:17 12:43 PT 23.3 H 14.0 H (9.0-12.0) sec INR 2.4 H 1.4 H (<1.2) Microbiology - Last 24 Hours (Table) 11/12/16 16:00 Urine Culture - Preliminary Urine,Catheterized
[2016-11-13] MEDS: AZITHROMYCIN 250 MG TAB PO SCH (21:00)
[2016-11-13] MEDS: SENNOSIDES-DOCUSATE SODIUM 1 EACH TAB PO SCH (21:34)
[2016-11-13] MEDS: ATORVASTATIN 10 MG TAB PO SCH (21:34)
[2016-11-13] MEDS: ceFAZolin 2 GM in SODIUM CHLORIDE 0.9% 100 ML IVPB SCH (23:41)
[2016-11-13] MEDS: HYDROcodone/APAP 5-325MG 1 EACH TAB PO PRN (23:46)
[2016-11-14 07:12] LABS: INR 1.6 (<1.2); Prothrombin Time 15.6 sec (9.0-12.0)
[2016-11-14] MEDS: IPRATROPIUM-ALBUTEROL 3 ML NEB INHALATION SCH ×4 (07:18→20:39)
[2016-11-14] MEDS: SYMBICORT 160-4.5 MCG INHALER INHALATION SCH ×2 (07:18→20:39)
[2016-11-14 07:31] LABS: Basophils % (A) 0 %; CH 32.3; Eosinophils # (A) 0.1 k/uL (0-0.7); Eosinophils % (A) 1 %; HCT 25.3 % (34.0-46.0); HDW 2.73; Luc # (Auto) 0.17; Luc % (Auto) 2; Lymphocytes # (A) 0.7 k/uL (1.0-4.8); Lymphocytes % (A) 8 %; MCH 31.6 pg (25.0-35.0); MCHC 32.1 g/dL (31.0-37.0); MCV 98.5 fL (80.0-100.0); Mean Platelet Volume 10.2; Monocytes # (A) 0.6 k/uL (0-1.0); Monocytes % (A) 6 %; Neutrophils # (A) 7.7 k/uL (1.3-7.7); Neutrophils % (A) 84 %; RBC 2.57 m/uL (3.80-5.40); WBC 9.2 k/uL (3.8-10.6); WBC (Perox) 9.97
[2016-11-14 07:34] LABS: HGB 8.1 gm/dL (11.4-16.0)
[2016-11-14] MEDS: ceFAZolin 2 GM in SODIUM CHLORIDE 0.9% 100 ML IVPB SCH (08:08)
[2016-11-14] MEDS: AMIODARONE 200 MG TAB PO SCH (08:10)
[2016-11-14] MEDS: LISINOPRIL 20 MG TAB PO SCH (08:10)
[2016-11-14] MEDS: METOPROLOL TARTRATE 25 MG TAB PO SCH ×2 (08:10→21:47)
[2016-11-14] MEDS: FUROSEMIDE 20 MG TAB PO SCH (08:10)
[2016-11-14] MEDS: HYDROcodone/APAP 5-325MG 1 EACH TAB PO PRN ×2 (08:17→15:30)
--- NOTE | 2016-11-14 09:48 | P.PN ---
Subjective Principal diagnosis: Status post right hip hemiarthroplasty Patient is postop day #1 from right hip hemiarthroplasty for right hip fracture performed by Dr. Almanzar. She has some pain at the surgical site as expected but denies any new complaints. She is denying numbness or tingling or calf pain. Review of systems is negative for fever, chills, chest pain, nausea, vomiting, dizziness, headaches, slurred speech. Objective - Vital Signs Vital signs: Vital Signs Temp 98.4 F 11/14/16 07:53 Pulse 68 11/14/16 07:53 Resp 16 11/14/16 07:53 BP 143/64 11/14/16 07:53 Pulse Ox 94 L 11/14/16 07:53 Intake & Output 11/13/16 11/14/16 11/14/16 18:59 06:59 18:59 Intake Total 1348 480 Output Total 550 Balance 798 480 Weight 33.112 kg Intake: IV 851 480 Sodium Chloride 0.9% 1, 480 000 ml @ 40 mls/hr IV . Q24H [facility] Rx#:[id number] Blood Product 497 Ffp 24 Cp2d Unit 223 [id number] Ffp 24 Cpd Unit 274 [id number] Output: Urine 450 Estimated Blood Loss 100 Other: Voiding Method Indwelling Catheter Indwelling Catheter - Exam Inspection of the right lower extent may shows a benign surgical wound. There is no active bleeding or drainage. Neurovascular status is intact with motor and sensation throughout the right lower extremity. Calf is soft and nontender. 2+ dorsalis pedis pulse and less than 2 second cap refill is present. - Constitutional General appearance: Present: no acute distress - Psychiatric Psychiatric: Present: A&O x's 3, appropriate affect, intact judgment & insight - Labs CBC & Chem 7: 11/14/16 06:39 11/11/16 23:25 Labs: Abnormal Lab Results - Last 24 Hours (Table) 11/13/16 11/14/16 11/14/16 Range/Units 12:43 06:39 06:39 RBC 2.57 L (3.80-5.40) m/uL Hgb 8.1 L D (11.4-16.0) gm/dL Hct 25.3 L (34.0-46.0) % Plt Count 119 L (150-450) k/uL Lymphocytes # 0.7 L (1.0-4.8) k/uL PT 14.0 H 15.6 H (9.0-12.0) sec INR 1.4 H 1.6 H (<1.2) Microbiology - Last 24 Hours (Table) 11/12/16 16:00 Urine Culture - Final Urine,Catheterized Assessment and Plan (1) Hip fracture, right Narrative/Plan: She will continue with routine postop orthopedic protocol including pain management, wound care, physical therapy, DVT prophylaxis and medical management. Expect transfer to rehab in 1-2 days. Status: Acute Time with Patient: Less than 30
--- NOTE | 2016-11-14 10:55 | CDI ---
In responding to this query, please exercise your independent professional judgment. The [facility] Coding Staff and Clinical Documentation Specialists appreciate your assistance in clarifying documentation, maintaining compliance with coding guidelines, accurately documenting patients condition and capturing severity of illness. The fact that a question is asked does not imply that any particular answer is desired or expected. Communication forms are a method of clarifying documentation and are not made part of the Legal Health Record. Thank you in advance for your clarification. Last Revision, May 2015 [place] [address] [facility] [place] [address] Documentation Clarification Form Date: 11/14/2016 10:42:00 AM From: Elza Alcocer CCS, CCDS Admit Date: 11/12/2016 1:12:00 AM Patient Name: Dora Myers Visit Number: [id number] Discharge Date: Dr. Maged Caceresma: 81 yo female, admitted via ER yesterday after a trip & fall at home. Lives at home alone, was walking to her pantry, stumbled and fell to her right side. She was unable to ambulate after her fall. She's had pain at the right hip and lower extremity. X-rays through the emergency department showed a right hip femoral neck fracture. Patient history/risk factors: COPD on Home O2 2Lnc, Chronic Atrial Fibrillation , Hypertension, CHF. Clinical Indicators: RAD: 11/12 Hip XR: Osteopenia. 11/13 Operative Note: Preoperative Diagnosis: 1. Left displaced, transcervical femoral neck fracture 2. Atrial fibrillation on Coumadin 3. COPD on home oxygen 4. Osteoporosis Treatment: Left Hemiarthroplasty, IV pain meds, O2. In your professional opinion, please specify if the patient's fracture is: Due to underlying condition(s) (if known): Osteoporosis and/or Osteopenia (specify type if known): Age related Disuse Drug induced Idiopathic Other (please specify): Unable to determine Please document in your progress notes and discharge summary in order to capture severity of illness and risk of mortality. Include clinical findings that support your diagnosis. FYI: Press F11 to launch patient chart MTDD
[2016-11-14] MEDS: MULTIVITAMINS, THERA 1 EACH TAB PO SCH (11:38)
--- NOTE | 2016-11-14 13:49 | P.PN ---
Subjective This is an 81-year-old female with history of severe end-stage COPD, gold stage IV, O2 dependent, but not prednisone dependent, normally sees Dr. Hastings in the office. Patient fell today, and she landed on her right side. Apparently when she was trying to get to that television, patient tripped and fell on the right side. X-rays of the hip showed right hip fracture, patient was admitted, she was seen by orthopedics on consultation, surgery is being considered, we were asked to see her on consultation for preoperative pulmonary clearance. Patient has chronic shortness of breath, occasional episodes of cough wheezing, no chest pain, no fever, no chills, no hemoptysis. Chest x-ray showed COPD and no evidence of active disease. Patient is also known to have history of chronic atrial fibrillation. On Coumadin. History of congestive heart failure. GI bleeding. And previous history of abdominal aortic aneurysm, spinal stenosis, gastritis, chronic liver disease secondary to old dennis level of this disease, and history of protein calorie malnutrition. The patient is seen again today 11/13/2016 in follow-up on the surgical floor. The plan was for hip repair this a.m. however her INR remains high at 2.4. The plan is for 2 units of fresh frozen plasma to be transfused and possible surgery later this afternoon. Currently she is resting fairly comfortably in bed. Her pain is controlled with morphine. She denies any worsening shortness of breath, cough or congestion. She is currently maintaining O2 saturations in the low 90s on 2 L/m per nasal cannula. She's afebrile. The patient is seen today 11/14/2016 in follow-up on the surgical floor. She did have her right hemiarthroplasty performed yesterday. She did very well throughout the postoperative period. She is currently sitting up in a chair at the bedside. She denies any worsening shortness of breath, cough or congestion. She is working well with the incentive spirometer. He is maintaining good O2 saturations in the mid 90s on 3 L/m per nasal cannula. She' s been afebrile. Hemodynamically stable. Her pain is well controlled. No leukocytosis. Hemoglobin 8.1. INR 1.6. Urine culture negative. Objective - Vital Signs Vital signs: Vital Signs Temp 98.4 F 11/14/16 07:53 Pulse 68 11/14/16 11:10 Resp 16 11/14/16 08:00 BP 143/64 11/14/16 07:53 Pulse Ox 94 L 11/14/16 07:53 Intake & Output 11/13/16 11/14/16 11/14/16 18:59 06:59 18:59 Intake Total 1348 480 Output Total 550 Balance 798 480 Weight 33.112 kg Intake: IV 851 480 Sodium Chloride 0.9% 1, 480 000 ml @ 40 mls/hr IV . Q24H [facility] Rx#:[id number] Blood Product 497 Ffp 24 Cp2d Unit 223 [id number] Ffp 24 Cpd Unit 274 [id number] Output: Urine 450 Estimated Blood Loss 100 Other: Voiding Method Indwelling Catheter Indwelling Catheter Indwelling Catheter - Exam GENERAL EXAM: Frail, cachectic. Alert, fairly comfortable in no apparent distress. HEAD: Normocephalic. EYES: Normal reaction of pupils, equal size. NOSE: Clear with pink turbinates. THROAT: No erythema or exudates. NECK: No masses, no JVD. CHEST: No chest wall deformity. LUNGS: Equal air entry with no crackles, wheeze, rhonchi or dullness. Diminished. CVS: S1 and S2 normal with no audible murmurs, regular rhythm. ABDOMEN: No hepatosplenomegaly, normal bowel sounds, no guarding or rigidity. Extremities: Dressing to the right hip dry and intact. Trace peripheral edema. No clubbing, no cyanosis. Peripheral pulses are intact. - Labs CBC & Chem 7: 11/14/16 06:39 11/11/16 23:25 Labs: Abnormal Lab Results - Last 24 Hours (Table) 11/14/16 11/14/16 Range/Units 06:39 06:39 RBC 2.57 L (3.80-5.40) m/uL Hgb 8.1 L D (11.4-16.0) gm/dL Hct 25.3 L (34.0-46.0) % Plt Count 119 L (150-450) k/uL Lymphocytes # 0.7 L (1.0-4.8) k/uL PT 15.6 H (9.0-12.0) sec INR 1.6 H (<1.2) Microbiology - Last 24 Hours (Table) 11/12/16 16:00 Urine Culture - Final Urine,Catheterized Assessment and Plan Plan: Impression: #1 Acute right hip fracture/right femoral neck with separation and superior displacement, status post fall. Status right hip hemiarthroplasty, postoperative day #1. #2 Coagulopathy, initial INR 4.6, currently 1.6. #3 Paroxysmal atrial fibrillation, on amiodarone, anticoagulated with warfarin. #4 Severe end-stage, Gold stage IV, oxygen dependent chronic obstructive pulmonary disease, currently inactive and stable. #5 Coronary artery disease involving 40-50% stenosis of the mid left anterior descending artery per cardiac catheterization in 2016. #6 Large infrarenal abdominal aortic aneurysm. Mid measurement 4.2 x 4.7 cm in November 2015. Being monitored in the outpatient setting. #7 Spinal stenosis. 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 #9 Peripheral vascular disease. #10 Protein calorie malnutrition. Plan: The patient was seen and evaluated by Dr. Toledo. She is currently stable from the pulmonary standpoint. We will continue with Symbicort and DuoNeb inhalations. We have again encouraged her regarding the increased use of the incentive spirometer and cough and deep breathing exercises. We will continue to follow.
[2016-11-14] MEDS: AZITHROMYCIN 250 MG TAB PO SCH (17:52)
[2016-11-14] MEDS: WARFARIN 2.5 MG TAB PO SCH (17:52)
--- NOTE | 2016-11-14 18:01 | P.PN ---
Subjective 81-year-old female with history of COPD, end-stage chronic hypoxic respiratory failure comes in to the hospital after sustaining a fall patient apparently walked into her closet and thereafter sustained a fall patient was noted to have a hip fracture patient has never lost consciousness nor hit her head. Consultation was requested for medical clearance and management of her chronic issues as well Patient has a history of COPD, CAD, abdominal aortic aneurysm. Patient has also been having a cough for the last 3-4 days. A chest x-ray does not show any pneumonic infiltrate at this time continues to be on 2 L supplemental oxygen She has a history of CAD underwent a cardiac catheterization in October 2015 no intervention was performed at that time. At this time patient main complaint is that she has pain in her hip denies having any fevers chills nausea vomiting diarrhea in the recent times 11/13/2016 Patient is awake. INR appears to be still 2.4 Complaints of pain in her hip. No other abnormalities reported 11/14/2016 Patient was doing well this morning however was noted to have an episode of significant coughing bout patient was apparently hypoxic in the 40s at that time Patient improved with breathing treatment and titration of oxygen At the time of my evaluation patient was on 2 L supplement oxygen without much difficulty breathing Continues to have tenderness that is tolerable on her right hip Review of systems a 14 point review of systems was done nonpertinent then all as mentioned above Gen. appearance cachectic does not appear to be in distress Neck is supple no JVD Lungs diminished breath sounds doing well. Air movement is appreciated. Heart S1-S2 heard no murmurs appreciated regular rate and rhythm abdomen is soft nontender no organomegaly hip flexion produces tenderness Aguayo catheter is in place Neuro no focal motor or sensory deficits. Assessment and plan #1 hip fracture #2 acute bronchitis. #3 end-stage COPD #4 chronic hypoxic respiratory failure or graft #5 CAD #6 abdominal aortic aneurysm #7 severe protein calorie malnutrition #8 Coumadin coagulopathy #9 history of atrial fibrillation. Plan Restart Coumadin continue monitoring PT/INR Continue Zithromax Breathing treatments Monitor O2 saturations Objective - Vital Signs Vital signs: Vital Signs Temp 97.8 F 11/14/16 14:32 Pulse 74 11/14/16 17:10 Resp 16 11/14/16 17:10 BP 91/47 11/14/16 14:32 Pulse Ox 93 L 11/14/16 14:32 Intake & Output 11/13/16 11/14/16 11/14/16 18:59 06:59 18:59 Intake Total 1348 480 420 Output Total 550 500 Balance 798 480 -80 Weight 33.112 kg Intake: IV 851 480 320 Sodium Chloride 0.9% 1, 480 320 000 ml @ 40 mls/hr IV . Q24H [facility] Rx#:[id number] Intake, IV Titration 100 Amount ceFAZolin 2 gm In Sodium 100 Chloride 0.9% 100 ml @ 100 mls/hr IVPB Q8HR [facility] Rx#:[id number] Blood Product 497 Ffp 24 Cp2d Unit 223 [id number] Ffp 24 Cpd Unit 274 [id number] Output: Urine 450 500 Estimated Blood Loss 100 Other: Voiding Method Indwelling Catheter Indwelling Catheter Indwelling Catheter - Labs CBC & Chem 7: 11/14/16 06:39 11/11/16 23:25 Labs: Abnormal Lab Results - Last 24 Hours (Table) 11/14/16 11/14/16 Range/Units 06:39 06:39 RBC 2.57 L (3.80-5.40) m/uL Hgb 8.1 L D (11.4-16.0) gm/dL Hct 25.3 L (34.0-46.0) % Plt Count 119 L (150-450) k/uL Lymphocytes # 0.7 L (1.0-4.8) k/uL PT 15.6 H (9.0-12.0) sec INR 1.6 H (<1.2) Microbiology - Last 24 Hours (Table) 11/12/16 16:00 Urine Culture - Final Urine,Catheterized
[2016-11-14] MEDS: SENNOSIDES-DOCUSATE SODIUM 1 EACH TAB PO SCH (20:50)
[2016-11-14] MEDS: ATORVASTATIN 10 MG TAB PO SCH (20:50)
[2016-11-14] MEDS: SODIUM CHLORIDE 0.9% 1,000 ML IV SCH (23:32)
[2016-11-15] MEDS: HYDROcodone/APAP 5-325MG 1 EACH TAB PO PRN ×2 (04:37→11:10)
[2016-11-15] MEDS: SYMBICORT 160-4.5 MCG INHALER INHALATION SCH ×2 (07:45→20:16)
[2016-11-15] MEDS: IPRATROPIUM-ALBUTEROL 3 ML NEB INHALATION SCH ×4 (07:45→20:16)
[2016-11-15 07:51] LABS: INR 2.3 (<1.2); Prothrombin Time 22.1 sec (9.0-12.0)
[2016-11-15] MEDS: METOPROLOL TARTRATE 25 MG TAB PO SCH ×2 (09:03→21:03)
[2016-11-15] MEDS: FUROSEMIDE 20 MG TAB PO SCH (09:03)
[2016-11-15] MEDS: LISINOPRIL 20 MG TAB PO SCH (09:03)
[2016-11-15] MEDS: AMIODARONE 200 MG TAB PO SCH (09:04)
--- NOTE | 2016-11-15 09:42 | P.PN ---
Subjective Principal diagnosis: Status post right hip hemiarthroplasty Patient is postop day #2 from right hip hemiarthroplasty for right hip fracture performed by Dr. Almanzar. She has some pain at the surgical site as expected but denies any new complaints. She is denying numbness or tingling or calf pain. Review of systems is negative for fever, chills, chest pain, nausea, vomiting, dizziness, headaches, slurred speech. Objective - Vital Signs Vital signs: Vital Signs Temp 98.4 F 11/15/16 07:00 Pulse 74 11/15/16 07:55 Resp 13 11/15/16 08:33 BP 148/76 11/15/16 07:00 Pulse Ox 92 L 11/15/16 07:00 Intake & Output 11/14/16 11/15/16 11/15/16 18:59 06:59 18:59 Intake Total 420 480 Output Total 500 300 Balance -80 180 Weight 33.112 kg Intake: IV 320 480 Sodium Chloride 0.9% 1, 320 480 000 ml @ 40 mls/hr IV . Q24H [facility] Rx#:[id number] Intake, IV Titration 100 Amount ceFAZolin 2 gm In Sodium 100 Chloride 0.9% 100 ml @ 100 mls/hr IVPB Q8HR [facility] Rx#:[id number] Output: Urine 500 300 Uretheral ([place]) 300 Other: Voiding Method Indwelling Catheter Indwelling Catheter Indwelling Catheter - Exam Inspection of the right lower extremity shows a benign surgical wound. There is no active bleeding or drainage. Neurovascular status is intact with motor and sensation throughout the right lower extremity. Calf is soft and nontender. 2+ dorsalis pedis pulse and less than 2 second cap refill is present. - Constitutional General appearance: Present: no acute distress - Psychiatric Psychiatric: Present: A&O x's 3, appropriate affect, intact judgment & insight - Labs CBC & Chem 7: 11/14/16 06:39 11/11/16 23:25 Labs: Abnormal Lab Results - Last 24 Hours (Table) 11/15/16 Range/Units 07:08 PT 22.1 H (9.0-12.0) sec INR 2.3 H (<1.2) Assessment and Plan (1) Hip fracture, right Narrative/Plan: She will continue with routine postop orthopedic protocol including pain management, wound care, physical therapy, DVT prophylaxis and medical management. Expect transfer to rehab in 1-2 days. Status: Acute Time with Patient: Less than 30
[2016-11-15] MEDS: MULTIVITAMINS, THERA 1 EACH TAB PO SCH (11:08)
--- NOTE | 2016-11-15 14:13 | P.PN ---
Subjective This is an 81-year-old female with history of severe end-stage COPD, gold stage IV, O2 dependent, but not prednisone dependent, normally sees Dr. Hastings in the office. Patient fell today, and she landed on her right side. Apparently when she was trying to get to that television, patient tripped and fell on the right side. X-rays of the hip showed right hip fracture, patient was admitted, she was seen by orthopedics on consultation, surgery is being considered, we were asked to see her on consultation for preoperative pulmonary clearance. Patient has chronic shortness of breath, occasional episodes of cough wheezing, no chest pain, no fever, no chills, no hemoptysis. Chest x-ray showed COPD and no evidence of active disease. Patient is also known to have history of chronic atrial fibrillation. On Coumadin. History of congestive heart failure. GI bleeding. And previous history of abdominal aortic aneurysm, spinal stenosis, gastritis, chronic liver disease secondary to old dennis level of this disease, and history of protein calorie malnutrition. The patient is seen again today 11/13/2016 in follow-up on the surgical floor. The plan was for hip repair this a.m. however her INR remains high at 2.4. The plan is for 2 units of fresh frozen plasma to be transfused and possible surgery later this afternoon. Currently she is resting fairly comfortably in bed. Her pain is controlled with morphine. She denies any worsening shortness of breath, cough or congestion. She is currently maintaining O2 saturations in the low 90s on 2 L/m per nasal cannula. She's afebrile. The patient is seen today 11/14/2016 in follow-up on the surgical floor. She did have her right hemiarthroplasty performed yesterday. She did very well throughout the postoperative period. She is currently sitting up in a chair at the bedside. She denies any worsening shortness of breath, cough or congestion. She is working well with the incentive spirometer. He is maintaining good O2 saturations in the mid 90s on 3 L/m per nasal cannula. She' s been afebrile. Hemodynamically stable. Her pain is well controlled. No leukocytosis. Hemoglobin 8.1. INR 1.6. Urine culture negative. The patient is seen again today 11/15/2016 in follow-up on the surgical floor. She is currently sitting up in a chair at the bedside. She is awake and alert and doing quite well. She denies any worsening shortness of breath, cough or congestion. She needs increased encouragement regarding the use of the incentive spirometer. She is maintaining good O2 saturations in the mid 90s on 3 L/m per nasal cannula. He has been afebrile. Hemodynamically stable. Her INR is therapeutic at 2.3. Her pain is well controlled. Objective - Vital Signs Vital signs: Vital Signs Temp 97 F L 11/15/16 13:31 Pulse 58 L 11/15/16 13:31 Resp 13 11/15/16 08:33 BP 140/54 11/15/16 13:31 Pulse Ox 95 11/15/16 13:31 Intake & Output 11/14/16 11/15/16 11/15/16 18:59 06:59 18:59 Intake Total 420 480 Output Total 500 300 Balance -80 180 Weight 33.112 kg 33.112 kg Intake: IV 320 480 Sodium Chloride 0.9% 1, 320 480 000 ml @ 40 mls/hr IV . Q24H [facility] Rx#:[id number] Intake, IV Titration 100 Amount ceFAZolin 2 gm In Sodium 100 Chloride 0.9% 100 ml @ 100 mls/hr IVPB Q8HR [facility] Rx#:[id number] Output: Urine 500 300 Uretheral ([place]) 300 Other: Voiding Method Indwelling Catheter Indwelling Catheter Indwelling Catheter - Exam GENERAL EXAM: Frail, cachectic. Alert, fairly comfortable in no apparent distress. HEAD: Normocephalic. EYES: Normal reaction of pupils, equal size. NOSE: Clear with pink turbinates. THROAT: No erythema or exudates. NECK: No masses, no JVD. CHEST: No chest wall deformity. LUNGS: Equal air entry with no crackles, wheeze, rhonchi or dullness. Diminished. CVS: S1 and S2 normal with no audible murmurs, regular rhythm. ABDOMEN: No hepatosplenomegaly, normal bowel sounds, no guarding or rigidity. Extremities: Dressing to the right hip dry and intact. Trace peripheral edema. No clubbing, no cyanosis. Peripheral pulses are intact. - Labs CBC & Chem 7: 11/14/16 06:39 11/11/16 23:25 Labs: Abnormal Lab Results - Last 24 Hours (Table) 11/15/16 Range/Units 07:08 PT 22.1 H (9.0-12.0) sec INR 2.3 H (<1.2) Assessment and Plan Plan: Impression: #1 Acute right hip fracture/right femoral neck with separation and superior displacement, status post fall. Status right hip hemiarthroplasty, postoperative day #2. #2 Coagulopathy, initial INR 4.6, currently 2.3. #3 Paroxysmal atrial fibrillation, on amiodarone, anticoagulated with warfarin. #4 Severe end-stage, Gold stage IV, oxygen dependent chronic obstructive pulmonary disease, currently inactive and stable. #5 Coronary artery disease involving 40-50% stenosis of the mid left anterior descending artery per cardiac catheterization in 2016. #6 Large infrarenal abdominal aortic aneurysm. Mid measurement 4.2 x 4.7 cm in November 2015. Being monitored in the outpatient setting. #7 Spinal stenosis. 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 #9 Peripheral vascular disease. #10 Protein calorie malnutrition. Plan: The patient was seen and evaluated by Dr. Toledo. She is remains stable from the pulmonary standpoint. We will continue her current medications. We have again encouraged her regarding the increased use of the incentive spirometer and cough and deep breathing exercises. We will increase her activity as tolerated. We will continue to follow.
[2016-11-15] MEDS: WARFARIN 2.5 MG TAB PO SCH (17:05)
[2016-11-15] MEDS: AZITHROMYCIN 250 MG TAB PO SCH (17:35)
--- NOTE | 2016-11-15 19:10 | P.PN ---
Subjective 81-year-old female with history of COPD, end-stage chronic hypoxic respiratory failure comes in to the hospital after sustaining a fall patient apparently walked into her closet and thereafter sustained a fall patient was noted to have a hip fracture patient has never lost consciousness nor hit her head. Consultation was requested for medical clearance and management of her chronic issues as well Patient has a history of COPD, CAD, abdominal aortic aneurysm. Patient has also been having a cough for the last 3-4 days. A chest x-ray does not show any pneumonic infiltrate at this time continues to be on 2 L supplemental oxygen She has a history of CAD underwent a cardiac catheterization in October 2015 no intervention was performed at that time. At this time patient main complaint is that she has pain in her hip denies having any fevers chills nausea vomiting diarrhea in the recent times 11/13/2016 Patient is awake. INR appears to be still 2.4 Complaints of pain in her hip. No other abnormalities reported 11/14/2016 Patient was doing well this morning however was noted to have an episode of significant coughing bout patient was apparently hypoxic in the 40s at that time Patient improved with breathing treatment and titration of oxygen At the time of my evaluation patient was on 2 L supplement oxygen without much difficulty breathing Continues to have tenderness that is tolerable on her right hip 11 15 2016 No significant change. Review of systems a 14 point review of systems was done nonpertinent then all as mentioned above Gen. appearance cachectic does not appear to be in distress Neck is supple no JVD Lungs diminished breath sounds doing well. Air movement is appreciated. Heart S1-S2 heard no murmurs appreciated regular rate and rhythm abdomen is soft nontender no organomegaly hip flexion produces tenderness Aguayo catheter is in place Neuro no focal motor or sensory deficits. Assessment and plan #1 hip fracture #2 acute bronchitis. #3 end-stage COPD #4 chronic hypoxic respiratory failure or graft #5 CAD #6 abdominal aortic aneurysm #7 severe protein calorie malnutrition #8 Coumadin coagulopathy #9 history of atrial fibrillation. #10 thrombocytopenia repeat labs tomorrow Plan Into new PT/INR. Patient is therapeutic today Disposition to a [place] Objective - Vital Signs Vital signs: Vital Signs Temp 97 F L 11/15/16 13:31 Pulse 77 11/15/16 15:40 Resp 13 11/15/16 16:00 BP 140/54 11/15/16 13:31 Pulse Ox 95 11/15/16 13:31 Intake & Output 11/15/16 11/15/16 11/16/16 06:59 18:59 06:59 Intake Total 480 400 Output Total 300 600 Balance 180 -200 Weight 33.112 kg Intake: IV 480 400 Sodium Chloride 0.9% 1, 480 400 000 ml @ 40 mls/hr IV . Q24H [facility] Rx#:[id number] Output: Urine 300 600 Uretheral ([place]) 300 Other: Voiding Method Indwelling Catheter Indwelling Catheter - Labs CBC & Chem 7: 11/14/16 06:39 11/11/16 23:25 Labs: Abnormal Lab Results - Last 24 Hours (Table) 11/15/16 Range/Units 07:08 PT 22.1 H (9.0-12.0) sec INR 2.3 H (<1.2)
[2016-11-15] MEDS: ATORVASTATIN 10 MG TAB PO SCH (21:03)
[2016-11-15] MEDS: SENNOSIDES-DOCUSATE SODIUM 1 EACH TAB PO SCH (21:03)
[2016-11-16] MEDS ORDERED: IPRATROPIUM-ALBUTEROL 3 ML NEB INHALATION PRN (04:30)
[2016-11-16 04:44] LABS: Glucose,Whole Blood 129 mg/dL (75-99)
[2016-11-16 05:07] LABS: Basophils % (A) 0 %; CH 30.6; CHCM 31.5; Eosinophils # (A) 0.2 k/uL (0-0.7); Eosinophils % (A) 2 %; HCT 27.2 % (34.0-46.0); HDW 2.87; HGB 8.8 gm/dL (11.4-16.0); Hypochromasia Slight; Luc # (Auto) 0.34; Luc % (Auto) 4; Lymphocytes # (A) 1.3 k/uL (1.0-4.8); Lymphocytes % (A) 14 %; MCH 31.7 pg (25.0-35.0); MCHC 32.3 g/dL (31.0-37.0); MCV 97.9 fL (80.0-100.0); Mean Platelet Volume 8.6; Monocytes # (A) 0.7 k/uL (0-1.0); Monocytes % (A) 7 %; Neutrophils # (A) 7.1 k/uL (1.3-7.7); Neutrophils % (A) 73 %; RBC 2.78 m/uL (3.80-5.40); RDW 13.8 % (11.5-15.5); WBC 9.7 k/uL (3.8-10.6); WBC (Perox) 10.09
[2016-11-16 05:19] LABS: INR 2.4 (<1.2); Partial Thromboplastin Time 30.5 sec (22.0-30.0); Prothrombin Time 23.5 sec (9.0-12.0)
[2016-11-16 05:31] LABS: ALT 35 U/L (9-52); AST 52 U/L (14-36); Alkaline Phosphatase 66 U/L (38-126); Anion Gap 5 mmol/L; Blood Urea Nitrogen 22 mg/dL (7-17); Calcium 8.3 mg/dL (8.4-10.2); Carbon Dioxide 33 mmol/L (22-30); Chloride 101 mmol/L (98-107); Creatine Kinase 427 U/L (30-135); Glucose 127 mg/dL (74-99); Magnesium 1.9 mg/dL (1.6-2.3); Non-African American GFR(MDRD) >60 (>60 ml/min/1.73 sqM); Potassium 4.4 mmol/L (3.5-5.1); Sodium 139 mmol/L (137-145); Total Bilirubin 0.5 mg/dL (0.2-1.3); Total Protein 5.4 g/dL (6.3-8.2)
--- NOTE | 2016-11-16 05:45 | XR ---
EXAM: XR Chest, 1 View CLINICAL HISTORY: Reason: shortness of breath TECHNIQUE: Frontal view of the chest. COMPARISON: 11/12/16 FINDINGS: Lungs: Interval development of right lower lobe infiltrate. Calcified granulomas redemonstrated in the right upper lung. Pleural space: Unremarkable. No pneumothorax. Heart: Unremarkable. No cardiomegaly. Mediastinum: Unremarkable. Bones/joints: Unremarkable. IMPRESSION: Interval development of right lower lobe infiltrate which may represent bronchopneumonia or partial atelectasis. Correlate clinically.
--- NOTE | 2016-11-16 05:51 | CT ---
EXAM: CT Head Without Intravenous Contrast CLINICAL HISTORY: Reason: Stroke Symptoms TECHNIQUE: Axial computed tomography images of the head/brain without intravenous contrast. DLP is 2067.80 mGy-cm. This CT exam was performed using one or more of the following dose reduction techniques: automated exposure control, adjustment of the mA and/or kV according to patient size, and/or use of iterative reconstruction technique. COMPARISON: 11/06/15 FINDINGS: Brain: Periventricular white matter hypodensities are noted indicating chronic small vessel ischemic changes. No hemorrhage. Ventricles: Unremarkable. No ventriculomegaly. Bones/joints: Unremarkable. No acute fracture. Soft tissues: Unremarkable. Sinuses: Unremarkable as visualized. No acute sinusitis. Mastoid air cells: Unremarkable as visualized. No mastoid effusion. Other findings: Generalized atrophy. IMPRESSION: No acute findings. Chronic small vessel ischemic changes and generalized atrophy redemonstrated.
[2016-11-16] MEDS: SODIUM CHLORIDE 0.9% 1,000 ML IV SCH (07:29)
[2016-11-16] MEDS: IPRATROPIUM-ALBUTEROL 3 ML NEB INHALATION SCH ×4 (08:28→19:50)
[2016-11-16] MEDS: SYMBICORT 160-4.5 MCG INHALER INHALATION SCH ×2 (08:28→20:05)
--- NOTE | 2016-11-16 08:42 | P.CRDCN ---
History of Present Illness Consult date: 11/16/16 Reason for Consult (text): CVA History of present illness: 81-year-old lady with history of COPD hypertension paroxysmal atrial fibrillation is admitted to hospital with left hip fracture and developed an onset of sudden confusion and weakness for which a "stroke was called and patient transferred to sixth floor. At the time of my evaluation this morning she appears comfortable at rest and does not have any focal neurological deficits. Her INR is therapeutic at 2.4. Patient's d-dimer was elevated could be related to recent surgery and in any event patient is adequately anticoagulated. She denies chest pain. She has shortness of breath related to COPD and is currently on 4 L of O2 and satting at 94%. She is on 2 L of home O2. Both EKGs and rhythm strips show that she has had episodes of paroxysmal atrial fibrillation. She has mild troponin elevation of unclear significance. Review of Systems Constitutional: Denies chills. Denies fever. Eyes: Denies blurred vision. Denies pain. Ears, nose, mouth and throat: Denies headache. Denies sore throat. Cardiovascular: Denies chest pain. has shortness of breath. Respiratory: Denies cough. Gastrointestinal: Denies abdominal pain. Denies diarrhea. Denies nausea. Denies vomiting. Musculoskeletal: Denies myalgias. Integumentary: Denies pruritus. Denies rash. Neurological: Denies numbness. focal weakness. Confusion Psychiatric: Denies anxiety. Denies depression. Endocrine: Denies fatigue. Denies weight change. Genitourinary: Denies burning, hematuria, frequency of urination. Hematological: No anemia or excess bleeding. Past Medical History Past Medical History: Atrial Fibrillation, Heart Failure, COPD, GI Bleed, Hypertension, Liver Disease, Pneumonia, Respiratory Disorder Additional Past Medical History / Comment(s): Home O2 at 2L/NC most of the time , bilateral leg blockages and an aortic aneurysm being monitored by dr. pena. 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 History of Any Multi-Drug Resistant Organisms: None Reported Additional Past Surgical History / Comment(s): STOMACH REPAIR FROM BLEEDING IN 2006. COLONOSCOPY IN 2007 WHERE HER BOWEL WAS NICKED AND SHE WENT FOR SURGICAL REPAIR. ONE OVARY REMOVED DUE TO CYST YEARS AGO. Past Anesthesia/Blood Transfusion Reactions: No Reported Reaction Additional Past Anesthesia/Blood Transfusion Reaction / Comment(s): PT RECIEVED BLOOD 45YRS AGO AFTER MISCARRIAGE-NO REACTION. Past Psychological History: No Psychological Hx Reported Additional Psychological History / Comment(s): PT LIVES ALONE BUT SON AND GIRLFRIEND LIVE NEXT DOOR AND HELP HER WITH ANYTHING SHE NEEDS. NORMALLY SHE IS UP AND ABOUT ALL THE TIME. USES A WALKER AT TIMES. Has home O2/nebulizer. Pt has not driven for 1 month-unsure if she will have a syncopal episode-family takes her to appts. Smoking Status: Former smoker Past Alcohol Use History: None Reported Past Drug Use History: None Reported - Past Family History Father Family Medical History: Coronary Artery Disease (CAD), Myocardial Infarction (RI ) Additional Family Medical History / Comment(s): FATHER AT AGE 66 OF [place] Mother Family Medical History: No Reported History Additional Family Medical History / Comment(s): MOTHER AT AGE 82 OF "OLD AGE" Medications and Allergies Home Medications Medication Instructions Recorded Confirmed Type Acetaminophen Tab [Tylenol] 650 mg PO Q4H PRN 01/05/14 11/12/16 History Amiodarone [Cordarone] 200 mg PO DAILY 01/05/14 11/12/16 History Atorvastatin [Lipitor] 10 mg PO HS 01/05/14 11/12/16 History Cholecalciferol [Vitamin D3] 400 unit PO DAILY 01/05/14 11/12/16 History Fluticasone/Salmeterol [Advair 1 puff INHALATION RT-BID 01/05/14 11/12/16 History 250-50 Diskus] Multivitamins, Thera [Multivitamin 1 tab PO DAILY 01/05/14 11/12/16 History (formulary)] Omeprazole [PriLOSEC] 40 mg PO AC-BRKFST 01/05/14 11/12/16 History Warfarin [Coumadin] 2.5 mg PO HS 01/05/14 11/12/16 History ALPRAZolam [Xanax] 0.25 mg PO HS PRN 01/07/14 11/12/16 History Digoxin [Lanoxin] 125 mcg PO DAILY #30 tab 01/10/14 11/12/16 Rx Metoprolol Tartrate [Lopressor] 25 mg PO BID #60 tab 01/10/14 11/12/16 Rx Famotidine [Pepcid] 20 mg PO BID 11/06/15 11/12/16 History Furosemide [Lasix] 20 mg PO DAILY 11/06/15 11/12/16 History Ipratropium-Albuterol Nebulize 3 ml INHALATION RT-TID PRN 11/06/15 11/12/16 History [Duoneb 0.5 mg-3 mg/3 ml Soln] Tiotropium 18 Mcg/Puff [Spiriva] 1 cap INHALATION RT-DAILY 11/06/15 11/12/16 History Lisinopril [Zestril] 20 mg PO DAILY #30 tab 11/10/15 11/12/16 Rx Latanoprost Ophth [Xalatan 0.005%] 1 drops BOTH EYES HS 11/12/16 11/12/16 History Allergies Allergy/AdvReac Type Severity Reaction Status Date / Time No Known Allergies Allergy Verified 11/13/16 14:10 Physical Exam Vitals: Vital Signs Temp Pulse Pulse Pulse Resp BP Pulse Ox 11/16/16 08:33 94 L 11/16/16 06:00 64 16 113/62 98 11/16/16 05:45 80 158/67 96 11/16/16 05:30 86 177/77 95 11/16/16 05:15 94 24 181/104 89 L 11/16/16 05:00 87 26 H 195/83 95 11/16/16 04:52 93 11/16/16 04:45 90 26 H 196/86 95 11/16/16 04:35 84 88 24 142/86 96 11/16/16 04:30 88 28 H 200/91 95 11/16/16 04:15 109 H 30 H 238/117 82 L 11/16/16 02:09 97.1 F L 89 16 135/64 97 11/15/16 21:50 97.2 F L 70 16 174/77 92 L 11/15/16 20:27 78 11/15/16 20:18 76 93 L 11/15/16 16:00 13 11/15/16 15:40 77 11/15/16 15:30 76 11/15/16 13:31 97 F L 58 L 140/54 95 11/15/16 11:46 72 11/15/16 11:36 70 Intake and Output 11/15/16 11/16/16 11/16/16 22:59 06:59 14:59 Intake Total 320 320 Output Total 500 300 Balance -180 20 Intake: IV 320 320 Sodium Chloride 0.9% 1, 320 320 000 ml @ 40 mls/hr IV . Q24H [facility] Rx#:[id number] Output: Urine 500 300 Other: Voiding Method Indwelling Catheter Indwelling Catheter General: The patient is awake and alert, in no distress, and does not appear acutely ill. Skin: Skin is warm and dry and no rashes or lesions are noted. Eye: Pupils are equal, round and reactive to light, extra-ocular movements are intact; there is normal conjunctiva bilaterally. Ears, nose, mouth and throat: There are moist mucous membranes and no oral lesions. Neck: The neck is supple, there is no tenderness or JVD. Cardiovascular: Irregular[ systolic murmur at the left lower sternal border.] Respiratory: Bilateral rhonchi Gastrointestinal: Soft, non-distended, non-tender abdomen without masses or organomegaly noted. There is no rebound or guarding present. Bowel sounds are unremarkable. Back: There is no tenderness to palpation in the midline. There is no obvious deformity. Musculoskeletal: Normal ROM, no tenderness, There is no pedal edema. There is no calf tenderness or swelling. Extremities:[ No edema.] Vascular: [Femoral pulse is normal.][ Posterior tibial pulses are normal .][ Dorsalis pedis is palpable.] Neurological: CN II-XII intact. There are no obvious motor or sensory deficits. Speech is normal. Psychiatric: Cooperative, appropriate mood & affect, normal judgment. Results 11/16/16 04:54 11/16/16 04:54 Cardiac Enzymes 11/16/16 11/16/16 Range/Units 04:54 04:54 AST 52 H (14-36) U/L Troponin I 0.047 H* (0.000-0.034) ng/mL Coagulation 11/16/16 Range/Units 04:54 PT 23.5 H (9.0-12.0) sec APTT 30.5 H (22.0-30.0) sec CBC 11/16/16 Range/Units 04:54 WBC 9.7 (3.8-10.6) k/uL RBC 2.78 L (3.80-5.40) m/uL Hgb 8.8 L (11.4-16.0) gm/dL Hct 27.2 L (34.0-46.0) % Plt Count 193 D (150-450) k/uL Comprehensive Metabolic Panel 11/16/16 Range/Units 04:54 Sodium 139 (137-145) mmol/L Potassium 4.4 (3.5-5.1) mmol/L Chloride 101 (98-107) mmol/L Carbon Dioxide 33 H (22-30) mmol/L BUN 22 H (7-17) mg/dL Creatinine 0.80 (0.52-1.04) mg/dL Glucose 127 H (74-99) mg/dL Calcium 8.3 L (8.4-10.2) mg/dL AST 52 H (14-36) U/L ALT 35 (9-52) U/L Alkaline Phosphatase 66 (38-126) U/L Total Protein 5.4 L (6.3-8.2) g/dL Albumin 2.7 L (3.5-5.0) g/dL Current Medications Generic Name Dose Route Start Last Admin Trade Name Freq PRN Reason Stop Dose Admin Acetaminophen 650 mg 11/12/16 01:12 Tylenol Tab PO Q6HR PRN Mild Pain or Fever > 100.5 Hydrocodone Bitart/Acetaminophen 1 each 11/13/16 15:36 11/15/16 11:10 Bigelow 5-325 PO 1 each Q6HR PRN Administration Pain Scale 1 to 5 Hydrocodone Bitart/Acetaminophen 2 each 11/13/16 15:36 11/15/16 04:37 Bigelow 5-325 PO 2 each Q6HR PRN Administration Pain Scale 6 to 10 Albuterol/Ipratropium 3 ml 11/12/16 20:00 11/16/16 08:28 Duoneb 0.5 Mg-3 Mg/3 Ml Soln INHALATION 3 ml RT-QID [facility] Administration Albuterol/Ipratropium 3 ml 11/16/16 04:30 Duoneb 0.5 Mg-3 Mg/3 Ml Soln INHALATION RT-Q2H PRN Shortness Of Breath Or Wheezing Alprazolam 0.25 mg 11/12/16 01:25 Xanax PO HS PRN restless legs Amiodarone HCl 200 mg 11/12/16 18:45 11/15/16 09:04 Cordarone PO 200 mg DAILY [facility] Administration Aspirin 81 mg 11/16/16 09:00 Aspirin PO DAILY [facility] Atorvastatin Calcium 10 mg 11/12/16 21:00 11/15/16 21:03 Lipitor PO 10 mg HS [facility] Administration Azithromycin 250 mg 11/12/16 18:45 11/15/16 17:35 Zithromax PO 250 mg DAILY@1800 [facility] Administration Budesonide/Formoterol Fumarate 2 puff 11/12/16 20:00 11/16/16 08:28 Symbicort 160-4.5 Mcg Inhaler INHALATION 2 puff RT-BID [facility] Administration Diazepam 2.5 mg 11/13/16 15:36 Valium PO Q8HR PRN Mild Spasms Furosemide 20 mg 11/12/16 09:00 11/15/16 09:03 Lasix PO 20 mg DAILY [facility] Administration Hydromorphone HCl 0.125 mg 11/13/16 15:36 Dilaudid IVP Q3HR PRN Pain Scale 1 to 3 Hydromorphone HCl 0.25 mg 11/13/16 15:36 Dilaudid IVP Q3HR PRN Pain Scale 4 to 6 Hydromorphone HCl 0.5 mg 11/13/16 15:36 Dilaudid IVP Q3HR PRN Pain Scale 7 to 10 Sodium Chloride 1,000 mls @ 40 mls/hr 11/13/16 00:15 11/16/16 07:29 Saline 0.9% IV Not Given .Q24H [facility] Lisinopril 20 mg 11/12/16 18:45 11/15/16 09:03 Zestril PO 20 mg DAILY [facility] Administration Magnesium Hydroxide 2,400 mg 11/13/16 15:36 Milk Of Magnesia PO DAILY PRN Constipation Metoprolol Tartrate 25 mg 11/12/16 09:00 11/15/16 21:03 Lopressor PO 25 mg BID [facility] Administration Miscellaneous Information 1 each 11/14/16 12:00 11/15/16 11:13 Coumadin Per Ortho Protocol MISCELLANE 1 each DAILY@1200 [facility] Administration Protocol Morphine Sulfate 4 mg 11/12/16 01:12 11/13/16 12:13 Morphine Sulfate (Inj) IV 4 mg Q4HR PRN Administration Severe Pain Multivitamins 1 each 11/14/16 12:00 11/15/16 11:08 Theragran PO 1 each DAILY@1200 [facility] Administration Naloxone HCl 0.2 mg 11/12/16 01:12 Narcan IV Q2M PRN Opioid Reversal Ondansetron HCl 4 mg 11/12/16 01:12 11/13/16 14:07 Zofran IVP 4 mg Q8HR PRN Administration Nausea And Vomiting Senna/Docusate Sodium 2 each 11/13/16 21:00 11/15/16 21:03 Senokot-S PO 2 each HS [facility] Administration Temazepam 15 mg 11/13/16 15:36 Restoril PO HS PRN Insomnia Tramadol HCl 50 mg 11/13/16 15:36 Ultram PO Q6H PRN Mild to Moderate Pain Warfarin Sodium 2.5 mg 11/14/16 18:00 11/15/16 17:05 Coumadin PO Not Given ONCE@1800 [facility] Intake and Output 11/15/16 11/16/16 11/16/16 22:59 06:59 14:59 Intake Total 320 320 Output Total 500 300 Balance -180 20 Intake: IV 320 320 Sodium Chloride 0.9% 1, 320 320 000 ml @ 40 mls/hr IV . Q24H [facility] Rx#:[id number] Output: Urine 500 300 Other: Voiding Method Indwelling Catheter Indwelling Catheter 11/16/16 04:54 11/16/16 04:54 EKG Interpretations (text) Atrial fibrillation with nonstress ST-T wave changes Assessment and Plan Plan: Chronic atrial fibrillation TIA probably secondary to chronic atrial fibrillation Status post fall with left hip fracture COPD I will obtain a 2-D echo if one has not been done. I will continue the Coumadin to maintain an INR of 2.5-3 patient is doing well and the neurological deficit has resolved.
--- NOTE | 2016-11-16 08:56 | P.PN ---
Subjective Overnight the patient had elevated systolic blood pressures and concern for a stroke. A computed tomography scan was obtained which was negative. She was transferred to the selective unit. This morning she is doing well with only minor complaints of right hip pain. She denies chest pain or shortness of breath. Objective - Vital Signs Vital signs: Vital Signs Temp 97.1 F L 11/16/16 02:09 Pulse 84 11/16/16 08:42 Resp 16 11/16/16 06:00 BP 113/62 11/16/16 06:00 Pulse Ox 94 L 11/16/16 08:33 Intake & Output 11/15/16 11/16/16 11/16/16 18:59 06:59 18:59 Intake Total 400 640 Output Total 600 500 Balance -200 140 Weight 33.112 kg Intake: IV 400 640 Sodium Chloride 0.9% 1, 400 640 000 ml @ 40 mls/hr IV . Q24H [facility] Rx#:[id number] Output: Urine 600 500 Other: Voiding Method Indwelling Catheter Indwelling Catheter - Exam The patient is in no apparent distress and is resting comfortably in her hospital bed. She is alert and able to answer questions. On examination of the patient's right lower extremity there is a clean dressing over the lateral aspect of her hip. Her thigh is soft and mildly tender. Distally she is able to actively plantarflex and dorsiflex her ankles and her toes. Sensation is intact to light touch throughout her right foot. A hip abduction pillow is in place. - Labs CBC & Chem 7: 11/16/16 04:54 11/16/16 04:54 Labs: Abnormal Lab Results - Last 24 Hours (Table) 11/16/16 11/16/16 11/16/16 Range/Units 04:42 04:54 04:54 RBC 2.78 L (3.80-5.40) m/uL Hgb 8.8 L (11.4-16.0) gm/dL Hct 27.2 L (34.0-46.0) % PT 23.5 H (9.0-12.0) sec INR 2.4 H (<1.2) APTT 30.5 H (22.0-30.0) sec D-Dimer 3.55 H (<0.60) mg/L FEU Carbon Dioxide (22-30) mmol/L BUN (7-17) mg/dL Glucose (74-99) mg/dL POC Glucose (mg/dL) 129 H (75-99) mg/dL Calcium (8.4-10.2) mg/dL AST (14-36) U/L Creatine Kinase (30-135) U/L Troponin I (0.000-0.034) ng/mL Total Protein (6.3-8.2) g/dL Albumin (3.5-5.0) g/dL 11/16/16 11/16/16 Range/Units 04:54 04:54 RBC (3.80-5.40) m/uL Hgb (11.4-16.0) gm/dL Hct (34.0-46.0) % PT (9.0-12.0) sec INR (<1.2) APTT (22.0-30.0) sec D-Dimer (<0.60) mg/L FEU Carbon Dioxide 33 H (22-30) mmol/L BUN 22 H (7-17) mg/dL Glucose 127 H (74-99) mg/dL POC Glucose (mg/dL) (75-99) mg/dL Calcium 8.3 L (8.4-10.2) mg/dL AST 52 H (14-36) U/L Creatine Kinase 427 H (30-135) U/L Troponin I 0.047 H* (0.000-0.034) ng/mL Total Protein 5.4 L (6.3-8.2) g/dL Albumin 2.7 L (3.5-5.0) g/dL Assessment and Plan (1) Hip fracture, right Status: Acute Plan: The patient is postoperative day #3 status post right hip hemiarthroplasty. From an orthopedic standpoint her recovery has been as planned. She is to continue weightbearing as tolerated on the right leg with posterior hip precautions. DVT prophylaxis per internal medicine with Coumadin. Appreciate internal medicine, cardiology, and pulmonology assistance. We'll continue to monitor from an orthopedic standpoint.
[2016-11-16] MEDS: HYDROmorphone 1 MG/ML 1 ML SYRINGE IVP PRN ×3 (09:18→19:51)
[2016-11-16] MEDS: ASPIRIN 81 MG PO SCH (09:21)
[2016-11-16] MEDS: MULTIVITAMINS, THERA 1 EACH TAB PO SCH (09:21)
[2016-11-16] MEDS: FUROSEMIDE 20 MG TAB PO SCH (09:21)
[2016-11-16] MEDS: METOPROLOL TARTRATE 25 MG TAB PO SCH ×2 (09:21→21:52)
[2016-11-16] MEDS: AMIODARONE 200 MG TAB PO SCH (09:22)
[2016-11-16] MEDS: LISINOPRIL 20 MG TAB PO SCH (09:22)
--- NOTE | 2016-11-16 11:58 | P.PN ---
Subjective Principal diagnosis: Acute right hip fracture and severe underlying COPD. This is an 81-year-old female with history of severe end-stage COPD, gold stage IV, O2 dependent, but not prednisone dependent, normally sees Dr. Hastings in the office. Patient fell today, and she landed on her right side. Apparently when she was trying to get to that television, patient tripped and fell on the right side. X-rays of the hip showed right hip fracture, patient was admitted, she was seen by orthopedics on consultation, surgery is being considered, we were asked to see her on consultation for preoperative pulmonary clearance. Patient has chronic shortness of breath, occasional episodes of cough wheezing, no chest pain, no fever, no chills, no hemoptysis. Chest x-ray showed COPD and no evidence of active disease. Patient is also known to have history of chronic atrial fibrillation. On Coumadin. History of congestive heart failure. GI bleeding. And previous history of abdominal aortic aneurysm, spinal stenosis, gastritis, chronic liver disease secondary to old dennis level of this disease, and history of protein calorie malnutrition. The patient is seen again today 11/13/2016 in follow-up on the surgical floor. The plan was for hip repair this a.m. however her INR remains high at 2.4. The plan is for 2 units of fresh frozen plasma to be transfused and possible surgery later this afternoon. Currently she is resting fairly comfortably in bed. Her pain is controlled with morphine. She denies any worsening shortness of breath, cough or congestion. She is currently maintaining O2 saturations in the low 90s on 2 L/m per nasal cannula. She's afebrile. The patient is seen today 11/14/2016 in follow-up on the surgical floor. She did have her right hemiarthroplasty performed yesterday. She did very well throughout the postoperative period. She is currently sitting up in a chair at the bedside. She denies any worsening shortness of breath, cough or congestion. She is working well with the incentive spirometer. He is maintaining good O2 saturations in the mid 90s on 3 L/m per nasal cannula. She' s been afebrile. Hemodynamically stable. Her pain is well controlled. No leukocytosis. Hemoglobin 8.1. INR 1.6. Urine culture negative. The patient is seen again today 11/15/2016 in follow-up on the surgical floor. She is currently sitting up in a chair at the bedside. She is awake and alert and doing quite well. She denies any worsening shortness of breath, cough or congestion. She needs increased encouragement regarding the use of the incentive spirometer. She is maintaining good O2 saturations in the mid 90s on 3 L/m per nasal cannula. He has been afebrile. Hemodynamically stable. Her INR is therapeutic at 2.3. Her pain is well controlled. Patient was reevaluated today on 11/16/2016, earlier this morning, the patient was in severe pain, and her blood pressure was significantly elevated over 200 systolic. Patient was confused, and she may have fallen. At any rate, code stroke was called, patient had a CT of the brain which came back negative. Her blood pressure was controlled, pain was controlled, and upon my evaluation today , the patient seems to be fine. She is basically asymptomatic, and her blood pressure seems to be under control. Denies any cough no wheezing no shortness of breath no chest pain. Objective - Vital Signs Vital signs: Vital Signs Temp 97.8 F 11/16/16 11:49 Pulse 66 11/16/16 11:50 Resp 16 11/16/16 11:50 BP 133/64 11/16/16 11:49 Pulse Ox 98 11/16/16 11:49 Intake & Output 11/15/16 11/16/16 11/16/16 18:59 06:59 18:59 Intake Total 400 640 Output Total 600 500 Balance -200 140 Weight 33.112 kg Intake: IV 400 640 Sodium Chloride 0.9% 1, 400 640 000 ml @ 40 mls/hr IV . Q24H [facility] Rx#:[id number] Output: Urine 600 500 Other: Voiding Method Indwelling Catheter Indwelling Catheter Indwelling Catheter - Exam GENERAL EXAM: Frail, cachectic. Alert, fairly comfortable in no apparent distress. HEAD: Normocephalic. EYES: Normal reaction of pupils, equal size. NOSE: Clear with pink turbinates. THROAT: No erythema or exudates. NECK: No masses, no JVD. CHEST: No chest wall deformity. LUNGS: Equal air entry with no crackles, wheeze, rhonchi or dullness. Diminished. CVS: S1 and S2 normal with no audible murmurs, regular rhythm. ABDOMEN: No hepatosplenomegaly, normal bowel sounds, no guarding or rigidity. Extremities: Dressing to the right hip dry and intact. Trace peripheral edema. No clubbing, no cyanosis. Peripheral pulses are intact. - Labs CBC & Chem 7: 11/16/16 04:54 11/16/16 04:54 Labs: Abnormal Lab Results - Last 24 Hours (Table) 11/16/16 11/16/16 11/16/16 Range/Units 04:42 04:54 04:54 RBC 2.78 L (3.80-5.40) m/uL Hgb 8.8 L (11.4-16.0) gm/dL Hct 27.2 L (34.0-46.0) % PT 23.5 H (9.0-12.0) sec INR 2.4 H (<1.2) APTT 30.5 H (22.0-30.0) sec D-Dimer 3.55 H (<0.60) mg/L FEU Carbon Dioxide (22-30) mmol/L BUN (7-17) mg/dL Glucose (74-99) mg/dL POC Glucose (mg/dL) 129 H (75-99) mg/dL Calcium (8.4-10.2) mg/dL AST (14-36) U/L Creatine Kinase (30-135) U/L Troponin I (0.000-0.034) ng/mL Total Protein (6.3-8.2) g/dL Albumin (3.5-5.0) g/dL 11/16/16 11/16/16 11/16/16 Range/Units 04:54 04:54 10:22 RBC (3.80-5.40) m/uL Hgb (11.4-16.0) gm/dL Hct (34.0-46.0) % PT (9.0-12.0) sec INR (<1.2) APTT (22.0-30.0) sec D-Dimer (<0.60) mg/L FEU Carbon Dioxide 33 H (22-30) mmol/L BUN 22 H (7-17) mg/dL Glucose 127 H (74-99) mg/dL POC Glucose (mg/dL) (75-99) mg/dL Calcium 8.3 L (8.4-10.2) mg/dL AST 52 H (14-36) U/L Creatine Kinase 427 H (30-135) U/L Troponin I 0.047 H* 0.042 H* (0.000-0.034) ng/mL Total Protein 5.4 L (6.3-8.2) g/dL Albumin 2.7 L (3.5-5.0) g/dL Assessment and Plan Plan: Impression: 1 acute right hip fracture/right femoral neck with separation and superior displacement, status post repair operative day #3 #2 Coagulopathy, initial INR 4.6, currently 2.4 #3 Paroxysmal atrial fibrillation, on amiodarone, anticoagulated with warfarin. #4 Severe end-stage, Gold stage IV, oxygen dependent chronic obstructive pulmonary disease, currently inactive and stable. #5 Coronary artery disease involving 40-50% stenosis of the mid left anterior descending artery per cardiac catheterization in 2016. #6 Large infrarenal abdominal aortic aneurysm. Mid measurement 4.2 x 4.7 cm in November 2015. Being monitored in the outpatient setting. #7 Spinal stenosis. 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 #9 Peripheral vascular disease. #10 Protein calorie malnutrition. Recommendation: Continue present supportive care measures, patient seems to be doing surprisingly well and better than expected considering her underlying COPD. We'll continue to follow. Time with Patient: Less than 30
--- NOTE | 2016-11-16 12:02 | ECHOF ---
Referral Reason:code stroke - afib MEASUREMENTS -------- HEIGHT: 152.4 cm WEIGHT: 33.1 kg BP: 113/62 RVIDd: 2.7 cm (< 3.3) IVSd: 1.3 cm (0.6 - 1.1) LVIDd: 3.5 cm (3.9 - 5.3) LVPWd: 1.1 cm (0.6 - 1.1) IVSs: 1.4 cm LVIDs: 2.1 cm LVPWs: 1.3 cm LA Diam: 4.6 cm (2.7 - 3.8) LAESV Index (A-L): 40.36 ml/m MV EXCURSION: 19.089 mm (> 18.000) MV EF SLOPE: 91 mm/s (70 - 150) EPSS: 0.3 cm MV E Aaron: 0.71 m/s MV DecT: 185 ms MV A Aaron: 0.83 m/s MV E/A Ratio: 0.85 AV maxP.03 mmHg AV meanP.93 mmHg RAP: 5.00 mmHg RVSP: 70.89 mmHg FINDINGS -------- Sinus rhythm. This was a technically adequate study. The left ventricular size is normal. There is moderate concentric left ventricular hypertrophy. Overall left ventricular systolic function is normal with, an EF between 55 - 60 %. The right ventricle is normal in size. LA is severely dilated >40 ml/m2 The right atrial size is normal. There is mild aortic stenosis present. Peak/mean gradient across the Aortic Valve is 22.03mmHg / 8.93mmHg. Mild mitral annular calcification present. No mitral regurgitation. Dqgn-[id number] tricuspid regurgitation present. There is moderate pulmonary hypertension. The right ventricular systolic pressure, as measured by Doppler, is 70.89mmHg. Trace/mild (physiologic) pulmonic regurgitation. The aortic root size is normal. Normal inferior vena cava with normal inspiratory collapse consistent with estimated right atrial pressure of 5 mmHg. There is no pericardial effusion. CONCLUSIONS -------- 1. The left ventricular size is normal. 2. There is moderate pulmonary hypertension. 3. The right ventricular systolic pressure, as measured by Doppler, is 70.89mmHg. 4. Trace/mild (physiologic) pulmonic regurgitation. 5. The aortic root size is normal. 6. Normal inferior vena cava with normal inspiratory collapse consistent with estimated right atrial pressure of 5 mmHg. 7. There is no pericardial effusion. 8. There is moderate concentric left ventricular hypertrophy. 9. Overall left ventricular systolic function is normal with, an EF between 55 - 60 %. 10. LA is severely dilated >40 ml/m2 11. There is mild aortic stenosis present. 12. Peak/mean gradient across the Aortic Valve is 22.03mmHg / 8.93mmHg. 13. Mild mitral annular calcification present. 14. No mitral regurgitation. 15. Agph-ez-[id number] tricuspid regurgitation present. [employer]: Carol Carreon RDCS
--- NOTE | 2016-11-16 15:07 | P.PN ---
Subjective 81-year-old female with history of COPD, end-stage chronic hypoxic respiratory failure comes in to the hospital after sustaining a fall patient apparently walked into her closet and thereafter sustained a fall patient was noted to have a hip fracture patient has never lost consciousness nor hit her head. Consultation was requested for medical clearance and management of her chronic issues as well Patient has a history of COPD, CAD, abdominal aortic aneurysm. Patient has also been having a cough for the last 3-4 days. A chest x-ray does not show any pneumonic infiltrate at this time continues to be on 2 L supplemental oxygen She has a history of CAD underwent a cardiac catheterization in October 2015 no intervention was performed at that time. At this time patient main complaint is that she has pain in her hip denies having any fevers chills nausea vomiting diarrhea in the recent times 11/13/2016 Patient is awake. INR appears to be still 2.4 Complaints of pain in her hip. No other abnormalities reported 11/14/2016 Patient was doing well this morning however was noted to have an episode of significant coughing bout patient was apparently hypoxic in the 40s at that time Patient improved with breathing treatment and titration of oxygen At the time of my evaluation patient was on 2 L supplement oxygen without much difficulty breathing Continues to have tenderness that is tolerable on her right hip 11 15 2016 No significant change. 11/16/2016 This morning patient has had an episode where blood pressure was 220/100. Patient currently was noted to have an anisocoria, a rapid response team was called on computed tomography scan of the head was done to rule out any acute stroke which was negative Patient did not have any other focal deficits Appears that patient had uncontrolled pain at that time patient was given her pain medications thereafter blood pressure was appropriately controlled At this time patient states to be doing well denies having any focal deficits including headaches change in vision nausea vomiting focal deficits. Review of systems a 14 point review of systems was done nonpertinent then all as mentioned above Gen. appearance cachectic does not appear to be in distress Neck is supple no JVD Lungs diminished breath sounds doing well. Air movement is appreciated. Heart S1-S2 heard no murmurs appreciated regular rate and rhythm abdomen is soft nontender no organomegaly hip flexion produces tenderness Aguayo catheter is in place Neuro no focal motor or sensory deficits. Pupils are unequal however reactive light and accommodation. Assessment and plan #1 hip fracture #2 acute bronchitis. #3 end-stage COPD #4 chronic hypoxic respiratory failure or graft #5 CAD #6 abdominal aortic aneurysm #7 severe protein calorie malnutrition #8 Coumadin coagulopathy #9 history of atrial fibrillation. #10 thrombocytopenia repeat labs tomorrow Plan Pain control Continue blood pressure monitoring Patient does not appear to have a stroke. Patient does appear to have anisocoria, however without any other focal deficits and pupils being reactive it does not necessarily any further workup for a stroke at this time Disposition to a ND Objective - Vital Signs Vital signs: Vital Signs Temp 97.8 F 11/16/16 11:49 Pulse 88 11/16/16 13:25 Resp 16 11/16/16 13:15 BP 133/64 11/16/16 11:49 Pulse Ox 98 11/16/16 11:49 Intake & Output 11/15/16 11/16/16 11/16/16 18:59 06:59 18:59 Intake Total 400 640 480 Output Total 600 500 500 Balance -200 140 -20 Weight 33.112 kg Intake: IV 400 640 Sodium Chloride 0.9% 1, 400 640 000 ml @ 20 mls/hr IV . Q24H [facility] Rx#:[id number] Oral 480 Output: Urine 600 500 500 Other: Voiding Method Indwelling Catheter Indwelling Catheter Indwelling Catheter - Labs CBC & Chem 7: 11/16/16 04:54 11/16/16 04:54 Labs: Abnormal Lab Results - Last 24 Hours (Table) 11/16/16 11/16/16 11/16/16 Range/Units 04:42 04:54 04:54 RBC 2.78 L (3.80-5.40) m/uL Hgb 8.8 L (11.4-16.0) gm/dL Hct 27.2 L (34.0-46.0) % PT 23.5 H (9.0-12.0) sec INR 2.4 H (<1.2) APTT 30.5 H (22.0-30.0) sec D-Dimer 3.55 H (<0.60) mg/L FEU Carbon Dioxide (22-30) mmol/L BUN (7-17) mg/dL Glucose (74-99) mg/dL POC Glucose (mg/dL) 129 H (75-99) mg/dL Calcium (8.4-10.2) mg/dL AST (14-36) U/L Creatine Kinase (30-135) U/L Troponin I (0.000-0.034) ng/mL Total Protein (6.3-8.2) g/dL Albumin (3.5-5.0) g/dL 11/16/16 11/16/16 11/16/16 Range/Units 04:54 04:54 10:22 RBC (3.80-5.40) m/uL Hgb (11.4-16.0) gm/dL Hct (34.0-46.0) % PT (9.0-12.0) sec INR (<1.2) APTT (22.0-30.0) sec D-Dimer (<0.60) mg/L FEU Carbon Dioxide 33 H (22-30) mmol/L BUN 22 H (7-17) mg/dL Glucose 127 H (74-99) mg/dL POC Glucose (mg/dL) (75-99) mg/dL Calcium 8.3 L (8.4-10.2) mg/dL AST 52 H (14-36) U/L Creatine Kinase 427 H (30-135) U/L Troponin I 0.047 H* 0.042 H* (0.000-0.034) ng/mL Total Protein 5.4 L (6.3-8.2) g/dL Albumin 2.7 L (3.5-5.0) g/dL
--- NOTE | 2016-11-16 16:01 | P.CONS ---
History of Present Illness - Reason for Consult Consult date: 11/16/16 TIA - History of Present Illness This pleasant 81-year-old female being evaluated by the neurology service for possible TIA. She was initially admitted to the hospital left hip fracture and sometime this morning had sudden onset of confusion and weakness and code stroke was called. She has no persistent focal neurological deficits. She has a significant history of COPD, hypertension, paroxysmal atrial fibrillation. A stat CT of the brain was done and showed no acute intracranial abnormalities. There was evidence of chronic small vessel ischemia. At the time my exam she is resting comfortably in bed in no acute distress. Review of Systems All systems: negative Constitutional: Reports as per HPI Past Medical History Past Medical History: Atrial Fibrillation, Heart Failure, COPD, GI Bleed, Hypertension, Liver Disease, Pneumonia, Respiratory Disorder Additional Past Medical History / Comment(s): Home O2 at 2L/NC most of the time , bilateral leg blockages and an aortic aneurysm being monitored by dr. pena. 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 History of Any Multi-Drug Resistant Organisms: None Reported Additional Past Surgical History / Comment(s): STOMACH REPAIR FROM BLEEDING IN 2006. COLONOSCOPY IN 2007 WHERE HER BOWEL WAS NICKED AND SHE WENT FOR SURGICAL REPAIR. ONE OVARY REMOVED DUE TO CYST YEARS AGO. Past Anesthesia/Blood Transfusion Reactions: No Reported Reaction Additional Past Anesthesia/Blood Transfusion Reaction / Comm: PT RECIEVED BLOOD 45YRS AGO AFTER MISCARRIAGE-NO REACTION. Past Psychological History: No Psychological Hx Reported Additional Psychological History / Comment(s): PT LIVES ALONE BUT SON AND GIRLFRIEND LIVE NEXT DOOR AND HELP HER WITH ANYTHING SHE NEEDS. NORMALLY SHE IS UP AND ABOUT ALL THE TIME. USES A WALKER AT TIMES. Has home O2/nebulizer. Pt has not driven for 1 month-unsure if she will have a syncopal episode-family takes her to appts. Smoking Status: Former smoker Past Alcohol Use History: None Reported Past Drug Use History: None Reported - Past Family History Father Family Medical History: Coronary Artery Disease (CAD), Myocardial Infarction (PA ) Additional Family Medical History / Comment(s): FATHER AT AGE 66 OF [place] Mother Family Medical History: No Reported History Additional Family Medical History / Comment(s): MOTHER AT AGE 82 OF "OLD AGE" Medications and Allergies Home Medications Medication Instructions Recorded Confirmed Type Acetaminophen Tab [Tylenol] 650 mg PO Q4H PRN 01/05/14 11/12/16 History Amiodarone [Cordarone] 200 mg PO DAILY 01/05/14 11/12/16 History Atorvastatin [Lipitor] 10 mg PO HS 01/05/14 11/12/16 History Cholecalciferol [Vitamin D3] 400 unit PO DAILY 01/05/14 11/12/16 History Fluticasone/Salmeterol [Advair 1 puff INHALATION RT-BID 01/05/14 11/12/16 History 250-50 Diskus] Multivitamins, Thera [Multivitamin 1 tab PO DAILY 01/05/14 11/12/16 History (formulary)] Omeprazole [PriLOSEC] 40 mg PO AC-BRKFST 01/05/14 11/12/16 History Warfarin [Coumadin] 2.5 mg PO HS 01/05/14 11/12/16 History ALPRAZolam [Xanax] 0.25 mg PO HS PRN 01/07/14 11/12/16 History Digoxin [Lanoxin] 125 mcg PO DAILY #30 tab 01/10/14 11/12/16 Rx Metoprolol Tartrate [Lopressor] 25 mg PO BID #60 tab 01/10/14 11/12/16 Rx Famotidine [Pepcid] 20 mg PO BID 11/06/15 11/12/16 History Furosemide [Lasix] 20 mg PO DAILY 11/06/15 11/12/16 History Ipratropium-Albuterol Nebulize 3 ml INHALATION RT-TID PRN 11/06/15 11/12/16 History [Duoneb 0.5 mg-3 mg/3 ml Soln] Tiotropium 18 Mcg/Puff [Spiriva] 1 cap INHALATION RT-DAILY 11/06/15 11/12/16 History Lisinopril [Zestril] 20 mg PO DAILY #30 tab 11/10/15 11/12/16 Rx Latanoprost Ophth [Xalatan 0.005%] 1 drops BOTH EYES HS 11/12/16 11/12/16 History Allergies Allergy/AdvReac Type Severity Reaction Status Date / Time No Known Allergies Allergy Verified 11/13/16 14:10 Physical Exam Vitals: Vital Signs Temp Pulse Pulse Pulse Resp BP Pulse Ox 11/16/16 15:38 74 66 18 11/16/16 15:37 98.1 F 74 18 151/89 87 L 11/16/16 13:25 88 11/16/16 13:15 90 16 11/16/16 11:50 66 16 11/16/16 11:49 97.8 F 66 16 133/64 98 11/16/16 09:40 81 18 11/16/16 09:38 98.1 F 81 18 141/60 92 L 11/16/16 08:42 84 11/16/16 08:33 88 94 L 11/16/16 08:00 98.1 F 106 H 26 H 209/107 86 L 11/16/16 06:00 64 16 113/62 98 11/16/16 05:45 80 158/67 96 11/16/16 05:30 86 177/77 95 11/16/16 05:15 94 24 181/104 89 L 11/16/16 05:00 87 26 H 195/83 95 11/16/16 04:52 93 11/16/16 04:45 90 26 H 196/86 95 11/16/16 04:35 84 88 24 142/86 96 11/16/16 04:30 88 28 H 200/91 95 11/16/16 04:15 109 H 30 H 238/117 82 L 11/16/16 02:09 97.1 F L 89 16 135/64 97 11/15/16 21:50 97.2 F L 70 16 174/77 92 L 11/15/16 20:27 78 11/15/16 20:18 76 93 L 11/15/16 16:00 13 Intake and Output 11/16/16 11/16/16 11/16/16 06:59 14:59 22:59 Intake Total 320 480 Output Total 300 500 Balance 20 -20 Intake: IV 320 Sodium Chloride 0.9% 1, 320 000 ml @ 20 mls/hr IV . Q24H [facility] Rx#:[id number] Oral 480 Output: Urine 300 500 Other: Voiding Method Indwelling Catheter Indwelling Catheter Indwelling Catheter - Constitutional General appearance: cooperative, no acute distress, thin - EENT Eyes: no abnormal pupil, EOMI, PERRLA, no ptosis ENT: hard of hearing - Neck Neck: normal ROM, no rigidity - Respiratory Respiratory: negative: prolonged expiration, prolonged inspiration - Cardiovascular Rhythm: regular - Gastrointestinal General gastrointestinal: no distended, no tenderness - Neurologic Patient is alert awake and oriented 3. Speech-language are normal. There is no facial asymmetry. There is no lateralized weakness, however testing in the right leg is limited due to her recent hip fracture. There is no sensory deficit. No tremors or seizure-like activities are seen. Results CBC & Chem 7: 11/16/16 04:54 11/16/16 04:54 Labs: Abnormal Lab Results - Last 24 Hours (Table) 11/16/16 11/16/16 11/16/16 Range/Units 04:42 04:54 04:54 RBC 2.78 L (3.80-5.40) m/uL Hgb 8.8 L (11.4-16.0) gm/dL Hct 27.2 L (34.0-46.0) % PT 23.5 H (9.0-12.0) sec INR 2.4 H (<1.2) APTT 30.5 H (22.0-30.0) sec D-Dimer 3.55 H (<0.60) mg/L FEU Carbon Dioxide (22-30) mmol/L BUN (7-17) mg/dL Glucose (74-99) mg/dL POC Glucose (mg/dL) 129 H (75-99) mg/dL Calcium (8.4-10.2) mg/dL AST (14-36) U/L Creatine Kinase (30-135) U/L Troponin I (0.000-0.034) ng/mL Total Protein (6.3-8.2) g/dL Albumin (3.5-5.0) g/dL 11/16/16 11/16/16 11/16/16 Range/Units 04:54 04:54 10:22 RBC (3.80-5.40) m/uL Hgb (11.4-16.0) gm/dL Hct (34.0-46.0) % PT (9.0-12.0) sec INR (<1.2) APTT (22.0-30.0) sec D-Dimer (<0.60) mg/L FEU Carbon Dioxide 33 H (22-30) mmol/L BUN 22 H (7-17) mg/dL Glucose 127 H (74-99) mg/dL POC Glucose (mg/dL) (75-99) mg/dL Calcium 8.3 L (8.4-10.2) mg/dL AST 52 H (14-36) U/L Creatine Kinase 427 H (30-135) U/L Troponin I 0.047 H* 0.042 H* (0.000-0.034) ng/mL Total Protein 5.4 L (6.3-8.2) g/dL Albumin 2.7 L (3.5-5.0) g/dL Assessment and Plan (1) TIA (transient ischemic attack) Status: Suspected (2) Hip fracture, right Status: Acute (3) COPD (chronic obstructive pulmonary disease) Status: Chronic (4) Hypertension Status: Chronic (5) PVD (peripheral vascular disease) Status: Chronic (6) Paroxysmal a-fib Status: Chronic Plan: Given the explanation of her symptoms and their prompt resolution she has likely suffered a transient episode of cerebral ischemia. She has no lasting neurological deficits. She is artery on aspirin and Coumadin. I will order carotid Doppler, EEG, fasting lipid profile, serum homocysteine level. Work with physical and occupational therapy will continue. Continue to follow with cardiology. We will continue to follow and make recommendations based on the above studies. I have reviewed the history and physical on the above patient. I have reviewed the above note, and agree.
--- NOTE | 2016-11-16 16:42 | US ---
EXAMINATION TYPE: US carotid duplex BILAT DATE OF EXAM: 11/16/2016 COMPARISON: NONE CLINICAL HISTORY: weakness. EXAM MEASUREMENTS: RIGHT: Peak Systolic Velocity (PSV) cm/sec ----- Right CCA: 95.6 ----- Right ICA: 339.7 ----- Right ECA: 116.1 ICA/CCA ratio: 3.6 RIGHT: End Diastole cm/sec ----- Right CCA: 14.1 ----- Right ICA: 58.5 ----- Right ECA: 9.7 LEFT: Peak Systolic Velocity (PSV) cm/sec ----- Left CCA: 94.4 ----- Left ICA: 160.1 ----- Left ECA: 228.3 ICA/CCA ratio: 1.7 LEFT: End Diastole cm/sec ----- Left CCA: 9.7 ----- Left ICA: 32.3 ----- Left ECA: 16.4 VERTEBRALS (direction of flow): Right Vertebral: not identified Left Vertebral: Antegrade Technically difficult exam as patient is breathing very heavy and only able to obtain a couple of dop pler signals at a time. Extensive shadowing plaque throughout all vessels with elevated velocities in the right ICA and Left ICA & ECA, causing stenosis. Grayscale, color Doppler, spectral Doppler imaging performed of the carotid arteries. Extensive atheromatous changes are present within the carotid arteries bilaterally. IMPRESSION: Hemodynamic significant stenosis of the proximal internal carotid arteries bilaterally. Findings correspond to approximately 60-70% diameter stenosis of the proximal internal carotid artery on the right, an indirect measurement of carotid stenosis. Stenosis may be greater than 50% on the l eft. Consider vascular surgery consult, carotid CTA Criteria for Assigning % of Stenosis / Diameter reduction (Estimation based on the indirect measurements of the internal carotid artery velocities (ICA PSV). 1. Normal (no stenosis)=ICA PSV < 125 cm/s: ratio < 2.0: ICA EDV<40 cm/s. 2. Less than 50% stenosis=ICA PSV < 125 cm/s: ratio < 2.0: ICA EDV<40 cm/s. 3. 50 to 69% stenosis=ICA PSV of 125 to 230 cm/s: ration 2.0 ? 4.0: ICA EDV 40-100 cm/s. 4. Greater than 70% stenosis to near occlusion= ICA PSV > 230 cm/s: ratio > 4.0: ICA EDV > 100 cm/s. 5. Near occlusion= ICA PSV velocities may be low or undetectable: variable ratio and ICA EDV. 6. Total occlusion=unable to detect flow.
[2016-11-16 16:44] LABS: Cholesterol 126 mg/dL (<200); HDL Cholesterol 49 mg/dL (40-60)
[2016-11-16] MEDS: WARFARIN 2.5 MG TAB PO SCH (17:21)
[2016-11-16] MEDS: AZITHROMYCIN 250 MG TAB PO SCH (17:21)
[2016-11-16] MEDS ORDERED: FUROSEMIDE 10 MG/ML 4 ML VIAL IV STA (20:16)
[2016-11-16] MEDS: LATANOPROST 0.005% OPHTH DROPS 2.5 ML BTL BOTH EYES SCH (21:52)
[2016-11-16] MEDS: ATORVASTATIN 10 MG TAB PO SCH (21:52)
[2016-11-16] MEDS: SENNOSIDES-DOCUSATE SODIUM 1 EACH TAB PO SCH (21:54)
[2016-11-17 06:27] LABS: INR 2.6 (<1.2); Prothrombin Time 24.8 sec (9.0-12.0)
[2016-11-17 06:34] LABS: ALT 30 U/L (9-52); AST 39 U/L (14-36); Alkaline Phosphatase 58 U/L (38-126); Anion Gap 5 mmol/L; Blood Urea Nitrogen 23 mg/dL (7-17); Calcium 8.4 mg/dL (8.4-10.2); Carbon Dioxide 37 mmol/L (22-30); Chloride 97 mmol/L (98-107); Glucose 97 mg/dL (74-99); Non-African American GFR(MDRD) 60 (>60 ml/min/1.73 sqM); Potassium 4.2 mmol/L (3.5-5.1); Sodium 139 mmol/L (137-145); Total Bilirubin 0.6 mg/dL (0.2-1.3); Total Protein 5.1 g/dL (6.3-8.2)
[2016-11-17] MEDS: HYDROmorphone 1 MG/ML 1 ML SYRINGE IVP PRN ×5 (08:21→21:18)
[2016-11-17] MEDS: ASPIRIN 81 MG PO SCH (08:23)
[2016-11-17] MEDS: FUROSEMIDE 20 MG TAB PO SCH (08:23)
[2016-11-17] MEDS: MULTIVITAMINS, THERA 1 EACH TAB PO SCH (08:24)
[2016-11-17] MEDS: AMIODARONE 200 MG TAB PO SCH (08:24)
[2016-11-17] MEDS: LISINOPRIL 20 MG TAB PO SCH (08:24)
[2016-11-17] MEDS: METOPROLOL TARTRATE 25 MG TAB PO SCH ×2 (08:24→21:17)
[2016-11-17] MEDS: IPRATROPIUM-ALBUTEROL 3 ML NEB INHALATION SCH ×4 (08:55→20:53)
[2016-11-17] MEDS: SYMBICORT 160-4.5 MCG INHALER INHALATION SCH ×2 (08:55→20:53)
[2016-11-17] MEDS ORDERED: LEVOFLOXACIN 500MG-D5W PMX 500 MG in DEXTROSE/WATER 1 100ML.BAG IVPB ONE (09:00)
[2016-11-17] MEDS: SODIUM CHLORIDE 0.9% 1,000 ML IV SCH (09:44)
--- NOTE | 2016-11-17 10:16 | P.PN ---
Subjective Principal diagnosis: Right hip fracture. Status post hemiarthroplasty right hip. This is an 81-year-old female who is status post hemiarthroplasty of the right hip. She was transferred to selective care unit for hypertension and A. fib. On the evening of 11/15/2016 the patient had elevated systolic blood pressures and concern for a stroke. A computed tomography scan was obtained which was negative. This morning she is doing well with only minor complaints of right hip pain. She denies chest pain or shortness of breath. Objective - Vital Signs Vital signs: Vital Signs Temp 98.6 F 11/17/16 08:00 Pulse 88 11/17/16 09:08 Resp 18 11/17/16 09:08 BP 183/73 11/17/16 08:00 Pulse Ox 95 11/17/16 08:00 Intake & Output 11/16/16 11/17/16 11/17/16 18:59 06:59 18:59 Intake Total 600 160 360 Output Total 500 700 600 Balance 100 -540 -240 Weight 40.5 kg Intake: Intake, IV Titration 160 Amount Sodium Chloride 0.9% 1, 160 000 ml @ 20 mls/hr IV . Q24H [facility] [place] Rx#:[id number] Oral 600 360 Output: Urine 500 700 600 Other: Voiding Method Indwelling Catheter Indwelling Catheter Indwelling Catheter # Voids 1 - Exam This is a pleasant 81-year-old female in no acute distress. She is alert and oriented 3. Exam of the right hip reveals that her dressing is clean, dry and intact. There is minimal soft tissue swelling to the thigh. She has full foot and ankle motion without difficulty or pain. Neurovascular status to the lower extremity is intact. - Labs CBC & Chem 7: 11/16/16 04:54 11/17/16 05:53 Labs: Abnormal Lab Results - Last 24 Hours (Table) 11/16/16 11/16/16 11/17/16 Range/Units 10:22 16:51 05:53 PT 24.8 H (9.0-12.0) sec INR 2.6 H (<1.2) Chloride (98-107) mmol/L Carbon Dioxide (22-30) mmol/L BUN (7-17) mg/dL AST (14-36) U/L Troponin I 0.042 H* 0.055 H* (0.000-0.034) ng/mL Total Protein (6.3-8.2) g/dL Albumin (3.5-5.0) g/dL 11/17/16 Range/Units 05:53 PT (9.0-12.0) sec INR (<1.2) Chloride 97 L (98-107) mmol/L Carbon Dioxide 37 H (22-30) mmol/L BUN 23 H (7-17) mg/dL AST 39 H (14-36) U/L Troponin I (0.000-0.034) ng/mL Total Protein 5.1 L (6.3-8.2) g/dL Albumin 2.5 L (3.5-5.0) g/dL Assessment and Plan (1) Status post hip hemiarthroplasty Status: Acute (2) Hip fracture, right Status: Acute Plan: The clinical findings are discussed the patient. Continue orthopedic care. May discharged to inpatient rehab when stable medically.
[2016-11-17] MEDS ORDERED: RX INFO: IV CONTRAST WAS GIVEN 1 EACH MISC MISCELLANE PRN (11:01)
--- NOTE | 2016-11-17 12:19 | P.PN ---
Subjective Principal diagnosis: Acute right hip fracture and severe underlying COPD. This is an 81-year-old female with history of severe end-stage COPD, gold stage IV, O2 dependent, but not prednisone dependent, normally sees Dr. Hastings in the office. Patient fell today, and she landed on her right side. Apparently when she was trying to get to that television, patient tripped and fell on the right side. X-rays of the hip showed right hip fracture, patient was admitted, she was seen by orthopedics on consultation, surgery is being considered, we were asked to see her on consultation for preoperative pulmonary clearance. Patient has chronic shortness of breath, occasional episodes of cough wheezing, no chest pain, no fever, no chills, no hemoptysis. Chest x-ray showed COPD and no evidence of active disease. Patient is also known to have history of chronic atrial fibrillation. On Coumadin. History of congestive heart failure. GI bleeding. And previous history of abdominal aortic aneurysm, spinal stenosis, gastritis, chronic liver disease secondary to old dennis level of this disease, and history of protein calorie malnutrition. The patient is seen again today 11/13/2016 in follow-up on the surgical floor. The plan was for hip repair this a.m. however her INR remains high at 2.4. The plan is for 2 units of fresh frozen plasma to be transfused and possible surgery later this afternoon. Currently she is resting fairly comfortably in bed. Her pain is controlled with morphine. She denies any worsening shortness of breath, cough or congestion. She is currently maintaining O2 saturations in the low 90s on 2 L/m per nasal cannula. She's afebrile. The patient is seen today 11/14/2016 in follow-up on the surgical floor. She did have her right hemiarthroplasty performed yesterday. She did very well throughout the postoperative period. She is currently sitting up in a chair at the bedside. She denies any worsening shortness of breath, cough or congestion. She is working well with the incentive spirometer. He is maintaining good O2 saturations in the mid 90s on 3 L/m per nasal cannula. She' s been afebrile. Hemodynamically stable. Her pain is well controlled. No leukocytosis. Hemoglobin 8.1. INR 1.6. Urine culture negative. The patient is seen again today 11/15/2016 in follow-up on the surgical floor. She is currently sitting up in a chair at the bedside. She is awake and alert and doing quite well. She denies any worsening shortness of breath, cough or congestion. She needs increased encouragement regarding the use of the incentive spirometer. She is maintaining good O2 saturations in the mid 90s on 3 L/m per nasal cannula. He has been afebrile. Hemodynamically stable. Her INR is therapeutic at 2.3. Her pain is well controlled. Patient was reevaluated today on 11/16/2016, earlier this morning, the patient was in severe pain, and her blood pressure was significantly elevated over 200 systolic. Patient was confused, and she may have fallen. At any rate, code stroke was called, patient had a CT of the brain which came back negative. Her blood pressure was controlled, pain was controlled, and upon my evaluation today , the patient seems to be fine. She is basically asymptomatic, and her blood pressure seems to be under control. Denies any cough no wheezing no shortness of breath no chest pain. Patient was reevaluated today on 11/17/2016, doing well, asymptomatic, no further episodes of TIAs. Neurologically seems to be intact. And she seems to be recovering well from her right hip fracture. Using BiPAP intermittently at bedside for her underlying COPD. Objective - Vital Signs Vital signs: Vital Signs Temp 98.7 F 11/17/16 11:36 Pulse 88 11/17/16 12:05 Resp 18 11/17/16 12:05 BP 133/55 11/17/16 11:36 Pulse Ox 95 11/17/16 11:36 Intake & Output 11/16/16 11/17/16 11/17/16 18:59 06:59 18:59 Intake Total 600 160 360 Output Total 500 700 600 Balance 100 -540 -240 Weight 40.5 kg Intake: Intake, IV Titration 160 Amount Sodium Chloride 0.9% 1, 160 000 ml @ 20 mls/hr IV . Q24H [facility] Rx#:[id number] Oral 600 360 Output: Urine 500 700 600 Other: Voiding Method Indwelling Catheter Indwelling Catheter Indwelling Catheter # Voids 1 - Exam GENERAL EXAM: Frail, cachectic. Alert, fairly comfortable in no apparent distress. HEAD: Normocephalic. EYES: Normal reaction of pupils, equal size. NOSE: Clear with pink turbinates. THROAT: No erythema or exudates. NECK: No masses, no JVD. CHEST: No chest wall deformity. LUNGS: Equal air entry with no crackles, wheeze, rhonchi or dullness. Diminished. CVS: S1 and S2 normal with no audible murmurs, regular rhythm. ABDOMEN: No hepatosplenomegaly, normal bowel sounds, no guarding or rigidity. Extremities: Dressing to the right hip dry and intact. Trace peripheral edema. No clubbing, no cyanosis. Peripheral pulses are intact. - Labs CBC & Chem 7: 11/16/16 04:54 11/17/16 05:53 Labs: Abnormal Lab Results - Last 24 Hours (Table) 11/16/16 11/17/16 11/17/16 Range/Units 16:51 05:53 05:53 PT 24.8 H (9.0-12.0) sec INR 2.6 H (<1.2) Chloride 97 L (98-107) mmol/L Carbon Dioxide 37 H (22-30) mmol/L BUN 23 H (7-17) mg/dL AST 39 H (14-36) U/L Troponin I 0.055 H* (0.000-0.034) ng/mL Total Protein 5.1 L (6.3-8.2) g/dL Albumin 2.5 L (3.5-5.0) g/dL Assessment and Plan Plan: Impression: 1 acute right hip fracture/right femoral neck with separation and superior displacement, status post repair operative day #4 #2 Coagulopathy, initial INR 4.6, currently 2.6 #3 Paroxysmal atrial fibrillation, on amiodarone, anticoagulated with warfarin. #4 Severe end-stage, Gold stage IV, oxygen dependent chronic obstructive pulmonary disease, currently inactive and stable. #5 Coronary artery disease involving 40-50% stenosis of the mid left anterior descending artery per cardiac catheterization in 2016. #6 Large infrarenal abdominal aortic aneurysm. Mid measurement 4.2 x 4.7 cm in November 2015. Being monitored in the outpatient setting. #7 Spinal stenosis. 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 #9 Peripheral vascular disease. #10 Protein calorie malnutrition. #11 1 episode of TIA, resolved. Being followed by neurology. Recommendation: Continue present supportive care measures, patient seems to be doing surprisingly well and better than expected considering her underlying COPD. We'll continue to follow. Time with Patient: Less than 30
--- NOTE | 2016-11-17 12:28 | P.GSCN ---
<Gurvinder Hardy - Last Filed: 11/17/16 11:55> History of Present Illness Consult date: 11/17/16 Reason for Consult: TIA/left carotid stenosis Requesting physician: Gavin Del Valle History of present illness: This is an 81-year-old female patient who is followed by Dr. Kim on an outpatient basis. Patient has a past history of multiple medical problems including COPD-oxygen dependent at home, history of atrial fibrillation on Coumadin therapy, peripheral vascular disease, history of coronary artery disease, abdominal aortic aneurysm, hypertension, vertigo and hyperlipidemia. The patient presented to the emergency department here at [facility] after sustaining a fall and fracturing her right hip. The patient reports she was reaching for some decaffeinated coffee in her pantry, to make her daughter A cup of coffee when she fell. She does not remember falling, losing consciousness and denies any head injury. She reports that her sisters were visiting and attempted to upper ambulate and she could not bear weight to her right leg and complained of significant pain to her right hip. Subsequently she was brought to [facility] for further evaluation. Patient denies any chest pain, any increasing shortness of breath, nausea or vomiting. Subsequently the patient underwent an x-ray of her right hip which was treated a right femoral neck fracture with 1 cm separation and superior displacement. She was seen by Dr. Almanzar from orthopedic surgery and she was subsequently taken to the operating room and underwent a right hemiarthroplasty after consent was obtained. For further workup and evaluation the patient also underwent a computed tomography scan of her brain which did not show any acute findings but did demonstrate some chronic small vessel ischemic changes and generalized atrophy. A carotid duplex was also completed which showed a hemodynamically significant stenosis of her bilateral internal carotid arteries with a 60-70% stenosis to her right internal carotid artery and a greater than 50% stenosis to her left internal carotid artery. The patient was also seen and examined by Dr. Viera from [facility] and a 2-D echocardiogram was completed. Her2 D echocardiogram showed an overall left ventricular systolic function to be normal with an ejection fraction between 55 and 60%, mild aortic stenosis, and mild to moderate tricuspid regurgitation. Due to the patient's recent fall and her carotid stenosis Dr. Pena from vascular surgery was consulted. Review of Systems - Constitutional Constitutional Comment(s): A 14 point review of systems was completed and was negative except as mentioned in the HPI. Past Medical History Past Medical History: Atrial Fibrillation, Heart Failure, COPD, GI Bleed, Hypertension, Liver Disease, Pneumonia, Respiratory Disorder Additional Past Medical History / Comment(s): Home O2 at 2L/NC most of the time , bilateral leg blockages and an aortic aneurysm being monitored by dr. pena. 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 Vertigo. History of Any Multi-Drug Resistant Organisms: None Reported Additional Past Surgical History / Comment(s): STOMACH REPAIR FROM BLEEDING IN 2007. COLONOSCOPY IN 2007 WHERE HER BOWEL WAS NICKED AND SHE WENT FOR SURGICAL REPAIR. ONE OVARY REMOVED DUE TO CYST YEARS AGO. Bilateral cataract surgery Past Anesthesia/Blood Transfusion Reactions: No Reported Reaction Additional Past Anesthesia/Blood Transfusion Reaction / Comm: PT RECIEVED BLOOD 45YRS AGO AFTER MISCARRIAGE-NO REACTION. Past Psychological History: No Psychological Hx Reported Additional Psychological History / Comment(s): PT LIVES ALONE BUT SON AND GIRLFRIEND LIVE NEXT DOOR AND HELP HER WITH ANYTHING SHE NEEDS. NORMALLY SHE IS UP AND ABOUT ALL THE TIME. USES A WALKER AT TIMES. Has home O2/nebulizer. Pt has not driven since February 2016, she quit driving in case she would have a syncopal episode-family takes her to app. Smoking Status: Former smoker (Quit 14 years ago) Past Alcohol Use History: None Reported Past Drug Use History: None Reported - Past Family History Father Family Medical History: Coronary Artery Disease (CAD), Myocardial Infarction (AR ) Additional Family Medical History / Comment(s): FATHER AT AGE 66 OF [place] Mother Family Medical History: No Reported History Additional Family Medical History / Comment(s): MOTHER AT AGE 82 OF "OLD AGE" Medications and Allergies Home Medications Medication Instructions Recorded Confirmed Type Acetaminophen Tab [Tylenol] 650 mg PO Q4H PRN 01/05/14 11/12/16 History Amiodarone [Cordarone] 200 mg PO DAILY 01/05/14 11/12/16 History Atorvastatin [Lipitor] 10 mg PO HS 01/05/14 11/12/16 History Cholecalciferol [Vitamin D3] 400 unit PO DAILY 01/05/14 11/12/16 History Fluticasone/Salmeterol [Advair 1 puff INHALATION RT-BID 01/05/14 11/12/16 History 250-50 Diskus] Multivitamins, Thera [Multivitamin 1 tab PO DAILY 01/05/14 11/12/16 History (formulary)] Omeprazole [PriLOSEC] 40 mg PO AC-BRKFST 01/05/14 11/12/16 History Warfarin [Coumadin] 2.5 mg PO HS 01/05/14 11/12/16 History ALPRAZolam [Xanax] 0.25 mg PO HS PRN 01/07/14 11/12/16 History Digoxin [Lanoxin] 125 mcg PO DAILY #30 tab 01/10/14 11/12/16 Rx Metoprolol Tartrate [Lopressor] 25 mg PO BID #60 tab 01/10/14 11/12/16 Rx Famotidine [Pepcid] 20 mg PO BID 11/06/15 11/12/16 History Furosemide [Lasix] 20 mg PO DAILY 11/06/15 11/12/16 History Ipratropium-Albuterol Nebulize 3 ml INHALATION RT-TID PRN 11/06/15 11/12/16 History [Duoneb 0.5 mg-3 mg/3 ml Soln] Tiotropium 18 Mcg/Puff [Spiriva] 1 cap INHALATION RT-DAILY 11/06/15 11/12/16 History Lisinopril [Zestril] 20 mg PO DAILY #30 tab 11/10/15 11/12/16 Rx Latanoprost Ophth [Xalatan 0.005%] 1 drops BOTH EYES HS 11/12/16 11/12/16 History Allergies Allergy/AdvReac Type Severity Reaction Status Date / Time No Known Allergies Allergy Verified 11/13/16 14:10 Surgical - Exam Vital Signs Temp Pulse Resp BP Pulse Ox 97.1 F L 55 L 22 216/81 94 L 11/11/16 22:57 11/11/16 22:57 11/11/16 22:57 11/11/16 22:57 11/11/16 22:57 - General no distress, no pain, cachectic, chronically ill - Eyes PERRL, normal ocular movement - ENT normal pinna, normal nares, normal mucosa, decreased hearing, dentures - Neck No lymphadenopathy. no masses, trachea midline, no venous distension carotid bruit: bilateral - Respiratory Lung sounds with expiratory wheezes throughout, diminished her bilateral bases. Respirations are symmetrical and nonlabored. Oxygen saturation are 95% on 4 L nasal cannula. Oxygen dependent. - Cardiovascular Regular rhythm and rate. S1 and S2, negative for S3, gallop or murmur. - Abdomen No guarding, no rigidity, no organomegaly. Abdomen: soft, non tender, bowel sounds (Active to all 4 abdominal quadrants.) - Genitourinary Deferred - Rectum Deferred - Integumentary Dressing clean dry and intact to her right hip. No drainage noted. no rash, no growths, no abnormal pigmentation - Neurologic normal coordination, normal sensation - Musculoskeletal abductor pillow in place between the patient's legs. - Psychiatric oriented to time, oriented to person, oriented to place, speech is normal, memory intact Results - Labs 11/16/16 04:54 11/17/16 05:53 Abnormal Lab Results - Last 24 Hours (Table) 11/16/16 11/17/16 11/17/16 Range/Units 16:51 05:53 05:53 PT 24.8 H (9.0-12.0) sec INR 2.6 H (<1.2) Chloride 97 L (98-107) mmol/L Carbon Dioxide 37 H (22-30) mmol/L BUN 23 H (7-17) mg/dL AST 39 H (14-36) U/L Troponin I 0.055 H* (0.000-0.034) ng/mL Total Protein 5.1 L (6.3-8.2) g/dL Albumin 2.5 L (3.5-5.0) g/dL Diabetes panel 11/16/16 11/17/16 Range/Units 04:54 05:53 Sodium 139 (137-145) mmol/L Potassium 4.2 (3.5-5.1) mmol/L Chloride 97 L (98-107) mmol/L Carbon Dioxide 37 H (22-30) mmol/L BUN 23 H (7-17) mg/dL Creatinine 0.90 (0.52-1.04) mg/dL Glucose 97 (74-99) mg/dL Calcium 8.4 (8.4-10.2) mg/dL AST 39 H (14-36) U/L ALT 30 (9-52) U/L Alkaline Phosphatase 58 (38-126) U/L Total Protein 5.1 L (6.3-8.2) g/dL Albumin 2.5 L (3.5-5.0) g/dL Triglycerides 102 (<150) mg/dL HDL Cholesterol 49 (40-60) mg/dL Calcium panel 11/17/16 Range/Units 05:53 Calcium 8.4 (8.4-10.2) mg/dL Albumin 2.5 L (3.5-5.0) g/dL Pituitary panel 11/17/16 Range/Units 05:53 Sodium 139 (137-145) mmol/L Potassium 4.2 (3.5-5.1) mmol/L Chloride 97 L (98-107) mmol/L Carbon Dioxide 37 H (22-30) mmol/L BUN 23 H (7-17) mg/dL Creatinine 0.90 (0.52-1.04) mg/dL Glucose 97 (74-99) mg/dL Calcium 8.4 (8.4-10.2) mg/dL Adrenal panel 11/17/16 Range/Units 05:53 Sodium 139 (137-145) mmol/L Potassium 4.2 (3.5-5.1) mmol/L Chloride 97 L (98-107) mmol/L Carbon Dioxide 37 H (22-30) mmol/L BUN 23 H (7-17) mg/dL Creatinine 0.90 (0.52-1.04) mg/dL Glucose 97 (74-99) mg/dL Calcium 8.4 (8.4-10.2) mg/dL Total Bilirubin 0.6 (0.2-1.3) mg/dL AST 39 H (14-36) U/L ALT 30 (9-52) U/L Alkaline Phosphatase 58 (38-126) U/L Total Protein 5.1 L (6.3-8.2) g/dL Albumin 2.5 L (3.5-5.0) g/dL - Imaging Comments: Carotid duplex study results, computed tomography scan of the brain results reviewed. Chest x-ray: report reviewed, image reviewed EKG: image reviewed Assessment and Plan (1) Bilateral stenosis of carotid arteries greater than 50% Status: Acute (2) Hip fracture, right Status: Acute (3) Status post hip hemiarthroplasty Status: Acute (4) TIA (transient ischemic attack) Status: Suspected (5) Acute exacerbation of chronic obstructive airways disease Status: Acute (6) Syncope Status: Acute (7) COPD (chronic obstructive pulmonary disease) Status: Chronic (8) Hypertension Status: Chronic (9) PVD (peripheral vascular disease) Status: Chronic (10) Paroxysmal a-fib Status: Chronic (11) Fall Status: Acute (12) Personal history of nicotine dependence Status: Acute (13) Dependence on supplemental oxygen Status: Acute Plan: The patient was seen and examined. Chart and diagnostics were reviewed. Case was discussed with Dr. Pena. Plan for now is to optimize medical treatment and will likely follow as an outpatient. Time with Patient: Greater than 30 <Curt Pena - Last Filed: 11/18/16 08:49> History of Present Illness History of present illness: CONSULTING APPLICATION ENGINEER notes reviewed and accepted. Concur in full. Patient interviewed and excepted, chart reviewed. Impression: Syncope or similar event with no focal signs or symptoms. Non-high- grade bilateral carotid stenosis. Symptoms unlikely to be carotid in origin. Recommendation: We'll continue to follow clinically. Recommend medical therapy at this time. I appreciate the continue in his care. Surgical - Exam Osteopathic Statement: *. No significant issues noted on an osteopathic structural exam other than those noted in the History and Physical/Consult. Vital Signs Temp Pulse Resp BP Pulse Ox 97.1 F L 55 L 22 216/81 94 L 11/11/16 22:57 11/11/16 22:57 11/11/16 22:57 11/11/16 22:57 11/11/16 22:57 Results - Labs 11/18/16 05:19 11/17/16 05:53 Abnormal Lab Results - Last 24 Hours (Table) 11/18/16 11/18/16 Range/Units 05:19 05:19 RBC 2.37 L (3.80-5.40) m/uL Hgb 7.5 L (11.4-16.0) gm/dL Hct 23.4 L (34.0-46.0) % PT 24.6 H (9.0-12.0) sec INR 2.6 H (<1.2)
--- NOTE | 2016-11-17 12:28 | P.PN ---
Progress Note - Text Patient remains confused. She denies chest pain. No new focal neurological deficits. Carotid duplex study shows a 60-70% stenosis involving right internal carotid artery. On exam patient is comfortable at rest vital signs are stable chest exam reveals occasional rhonchi bilaterally heart exam reveals first and second heart sounds no gallop abdomen is soft exam extremities did not reveal any edema per for pulses are felt Assessment and plan TIA Carotid stenosis Cardiomyopathy COPD Patient will continue with current medical therapy
--- NOTE | 2016-11-17 13:28 | P.PN ---
Subjective Principal diagnosis: TIA This pleasant 81-year-old female continuing to be evaluated by the neurology service for confusion and weakness. She was admitted for left hip fracture and sometime during her admission develop some confusion and weakness occult stroke was called. Recall that a CAT scan of the brain showed no acute intracranial abnormalities. There was evidence of chronic small vessel ischemia. At time of my exam she is resting comfortably in bed in no acute distress. A carotid Doppler was performed and shows significant bilateral stenosis. A consult was placed for cardiovascular surgery. She was seen and they plan on following her in an outpatient setting. She continues to be followed by pulmonology and orthopedics. She complains of no new neurological symptoms. Objective - Vital Signs Vital signs: Vital Signs Temp 98.7 F 11/17/16 11:36 Pulse 88 11/17/16 12:05 Resp 18 11/17/16 12:05 BP 133/55 11/17/16 11:36 Pulse Ox 95 11/17/16 11:36 Intake & Output 11/16/16 11/17/16 11/17/16 18:59 06:59 18:59 Intake Total 600 160 360 Output Total 500 700 600 Balance 100 -540 -240 Weight 40.5 kg Intake: Intake, IV Titration 160 Amount Sodium Chloride 0.9% 1, 160 000 ml @ 20 mls/hr IV . Q24H [facility] Rx#:[id number] Oral 600 360 Output: Urine 500 700 600 Other: Voiding Method Indwelling Catheter Indwelling Catheter Indwelling Catheter # Voids 1 - Constitutional General appearance: Present: no acute distress, thin - EENT Eyes: Present: PERRLA. Absent: abnormal pupil, ptosis ENT: Present: hearing grossly normal - Neck Neck: Present: normal ROM. Absent: rigidity - Respiratory Respiratory: negative: prolonged expiration, prolonged inspiration - Cardiovascular Rhythm: regular - Neurologic Neurologic Comment(s): She is alert awake and oriented 3. Speech and language are normal. There is no facial asymmetry. There is no lateralizing weakness. Recall that testing on her right leg is limited due to her hip fracture. But there is no sensory deficit. No tremors or seizure-like activities are seen. - Labs CBC & Chem 7: 11/16/16 04:54 11/17/16 05:53 Labs: Abnormal Lab Results - Last 24 Hours (Table) 11/16/16 11/17/16 11/17/16 Range/Units 16:51 05:53 05:53 PT 24.8 H (9.0-12.0) sec INR 2.6 H (<1.2) Chloride 97 L (98-107) mmol/L Carbon Dioxide 37 H (22-30) mmol/L BUN 23 H (7-17) mg/dL AST 39 H (14-36) U/L Troponin I 0.055 H* (0.000-0.034) ng/mL Total Protein 5.1 L (6.3-8.2) g/dL Albumin 2.5 L (3.5-5.0) g/dL Assessment and Plan (1) TIA (transient ischemic attack) Status: Suspected (2) Hip fracture, right Status: Acute (3) COPD (chronic obstructive pulmonary disease) Status: Chronic (4) Hypertension Status: Chronic (5) PVD (peripheral vascular disease) Status: Chronic (6) Paroxysmal a-fib Status: Chronic (7) Bilateral stenosis of carotid arteries greater than 50% Status: Acute (8) Dependence on supplemental oxygen Status: Acute Plan: Given the explanation of her symptoms and their prompt resolution she has likely suffered a transient episode of cerebral ischemia. She has no lasting neurological deficits. She is already on aspirin and Coumadin. Work with physical and occupational therapy will continue. Continue to follow with cardiology. Barring any unforeseen abnormalities on her EEG she would be cleared from a neurological standpoint. I have reviewed the history and physical on the above patient. I have reviewed the above note, and agree.
--- NOTE | 2016-11-17 14:34 | CT ---
EXAMINATION TYPE: CT angio head neck DATE OF EXAM: 11/17/2016 COMPARISON: Correlation CT brain 11/16/2016 and carotid ultrasound 11/16/2016 HISTORY: 81-year-old female TIA, Carotid Stenosis TECHNIQUE: Contiguous axial scanning of the neck and [place] performed with IV Contrast, pat ient injected with 65 mL of Omnipaque 350. Coronal/sagittal MIP reconstructions performed. 3-D recons tructions generated on a dedicated independent workstation. CT DLP: 185.9 mGycm Automated exposure control for dose reduction was used. FINDINGS: NECK: Partially visualized moderate-sized right pleural effusion. There is a large calcified granuloma in t he posterior upper lobe and underlying moderate centrilobular emphysema. Additional calcified granulo ma medial left apex. Borderline ectasia upper descending thoracic aorta at 3.1 cm. There appears to be conventional arch vessel branching anatomy of the origin of the arch vessels are not included on the exam. There is focal mild atherosclerotic narrowing of the proximal left subclavi an artery, 60. The left vertebral artery origin is patent. The right vertebral artery appears occluded. There is some reconstitution of flow to a diminutive V3 and V4 segment vertebral artery likely from collateral vasculature. The right common carotid artery is patent. There is atherosclerotic calcification causing mild stenos is in the carotid bulb. There is also a hairpin kink in the proximal right internal carotid artery wi th the apex of the kink directed posteriorly. At the site of kinking, there may be a moderate, just a anne 50% stenosis. Additional atherosclerotic calcification causing mild narrowing of the upper most right ICA. The left common carotid artery is patent with mild, approaching 50% carotid bulb narrowing secondary to disc calcification. Continued opacification of the right maxillary sinus. Head: Atherosclerotic calcifications within the bilateral carotid siphons. This causes a moderate stenosis along the left cavernous segment and mild within the left greater than right clinoid segments. There is a prominent right posterior communicating artery. The right vertebral artery is diminutive b ut the basilar artery is patent as is the remainder of the anterior circulation. No aneurysmal change is identified. IMPRESSION: NECK: 1. MILD, APPROACHING JUST UNDER 50% STENOSIS OF THE LEFT CAROTID BULB. 2. MILD STENOSIS OF THE RIGHT CAROTID BULB BUT WITH A FOCAL HAIRPIN KINK OF THE PROXIMAL RIGHT ICA TH AT APPEARS TO CONTRIBUTE TO MODERATE (JUST OVER 50%) FOCAL VESSEL NARROWING. 3. OCCLUDED RIGHT VERTEBRAL ARTERY. THERE IS SOME RECONSTITUTION OF THE V3 AND V4 SEGMENTS LIKELY FRO M COLLATERAL FLOW. HEAD: 4. MILD TO MODERATE SEGMENTAL NARROWING OF THE CAROTID SIPHONS SECONDARY TO ATHEROSCLEROTIC CALCIFICA TIONS. 5. LARGE RIGHT POSTERIOR COMMUNICATING ARTERY INCIDENTALLY NOTED. 6. NO ANEURYSMAL CHANGE OR LARGE VESSEL OCCLUSION. OTHER: 7. PARTIALLY VISUALIZED MODERATE RIGHT PLEURAL EFFUSION. CLINICALLY CORRELATE. UNDERLYING EMPHYSEMA A ND PRIOR GRANULOMATOUS DISEASE.
--- NOTE | 2016-11-17 17:42 | P.PN ---
Subjective 81-year-old female with history of COPD, end-stage chronic hypoxic respiratory failure comes in to the hospital after sustaining a fall patient apparently walked into her closet and thereafter sustained a fall patient was noted to have a hip fracture patient has never lost consciousness nor hit her head. Consultation was requested for medical clearance and management of her chronic issues as well Patient has a history of COPD, CAD, abdominal aortic aneurysm. Patient has also been having a cough for the last 3-4 days. A chest x-ray does not show any pneumonic infiltrate at this time continues to be on 2 L supplemental oxygen She has a history of CAD underwent a cardiac catheterization in October 2015 no intervention was performed at that time. At this time patient main complaint is that she has pain in her hip denies having any fevers chills nausea vomiting diarrhea in the recent times 11/13/2016 Patient is awake. INR appears to be still 2.4 Complaints of pain in her hip. No other abnormalities reported 11/14/2016 Patient was doing well this morning however was noted to have an episode of significant coughing bout patient was apparently hypoxic in the 40s at that time Patient improved with breathing treatment and titration of oxygen At the time of my evaluation patient was on 2 L supplement oxygen without much difficulty breathing Continues to have tenderness that is tolerable on her right hip 11 15 2016 No significant change. 11/16/2016 This morning patient has had an episode where blood pressure was 220/100. Patient currently was noted to have an anisocoria, a rapid response team was called on computed tomography scan of the head was done to rule out any acute stroke which was negative Patient did not have any other focal deficits Appears that patient had uncontrolled pain at that time patient was given her pain medications thereafter blood pressure was appropriately controlled At this time patient states to be doing well denies having any focal deficits including headaches change in vision nausea vomiting focal deficits. 11/17/2016 Patient appears to be doing well denies having any new complaints Review of systems a 14 point review of systems was done nonpertinent then all as mentioned above Gen. appearance cachectic does not appear to be in distress Neck is supple no JVD Lungs diminished breath sounds doing well. Air movement is appreciated. Heart S1-S2 heard no murmurs appreciated regular rate and rhythm abdomen is soft nontender no organomegaly hip flexion produces tenderness Agu[place]o catheter is in place Neuro no focal motor or sensory deficits. Pupils are unequal however reactive light and accommodation. Assessment and plan #1 hip fracture #2 acute bronchitis. #3 end-stage COPD #4 chronic hypoxic respiratory failure or graft #5 CAD #6 abdominal aortic aneurysm #7 severe protein calorie malnutrition #8 Coumadin coagulopathy #9 history of atrial fibrillation. #10 thrombocytopenia repeat labs tomorrow Plan Pain control Continue blood pressure monitoring Patient does not appear to have a stroke. Patient does appear to have anisocoria, however without any other focal deficits and pupils being reactive, Unsure of why this whole workup including carotid studies were ever needed. There was no suspicion for strokelike symptoms except for unequal pupils patient 's blood pressure improved after pain control Disposition to a CT Objective - Vital Signs Vital signs: Vital Signs Temp 97.1 F L 11/17/16 15:04 Pulse 85 11/17/16 15:05 Resp 22 11/17/16 15:05 BP 109/43 11/17/16 15:04 Pulse Ox 95 11/17/16 17:25 Intake & Output 11/16/16 11/17/16 11/17/16 18:59 06:59 18:59 Intake Total 600 160 730 Output Total 448 184 4597 Balance 100 -540 -870 Weight 40.5 kg Intake: IV 240 Sodium Chloride 0.9% 1, 240 000 ml @ 20 mls/hr IV . Q24H [facility] Rx#:[id number] Intake, IV Titration 160 50 Amount Levofloxacin 250Mg-D5w 50 Pmx 250 mg In Dextrose/ Water 1 50ml.bag @ 50 mls /hr IVPB Q24H [facility] Rx#: [id number] Sodium Chloride 0.9% 1, 160 000 ml @ 20 mls/hr IV . Q24H [facility] Rx#:[id number] Oral 600 440 Output: Urine 604 393 3997 Other: Voiding Method Indwelling Catheter Indwelling Catheter Indwelling Catheter # Voids 1 - Labs CBC & Chem 7: 11/16/16 04:54 11/17/16 05:53 Labs: Abnormal Lab Results - Last 24 Hours (Table) 11/16/16 11/17/16 11/17/16 Range/Units 16:51 05:53 05:53 PT 24.8 H (9.0-12.0) sec INR 2.6 H (<1.2) Chloride 97 L (98-107) mmol/L Carbon Dioxide 37 H (22-30) mmol/L BUN 23 H (7-17) mg/dL AST 39 H (14-36) U/L Troponin I 0.055 H* (0.000-0.034) ng/mL Total Protein 5.1 L (6.3-8.2) g/dL Albumin 2.5 L (3.5-5.0) g/dL
[2016-11-17] MEDS: WARFARIN 2.5 MG TAB PO SCH (18:08)
[2016-11-17] MEDS: AZITHROMYCIN 250 MG TAB PO SCH (18:08)
[2016-11-17] MEDS: SENNOSIDES-DOCUSATE SODIUM 1 EACH TAB PO SCH (21:17)
[2016-11-17] MEDS: ATORVASTATIN 10 MG TAB PO SCH (21:17)
[2016-11-17] MEDS: LATANOPROST 0.005% OPHTH DROPS 2.5 ML BTL BOTH EYES SCH (21:17)
[2016-11-18] MEDS: HYDROmorphone 1 MG/ML 1 ML SYRINGE IVP PRN ×4 (02:03→15:06)
[2016-11-18 06:23] LABS: Basophils % (A) 0 %; CH 30.6; CHCM 31.3; Eosinophils # (A) 0.1 k/uL (0-0.7); Eosinophils % (A) 1 %; HCT 23.4 % (34.0-46.0); HDW 3.04; HGB 7.5 gm/dL (11.4-16.0); Hypochromasia Slight; Luc % (Auto) 3; Lymphocytes % (A) 11 %; MCH 31.5 pg (25.0-35.0); MCV 98.6 fL (80.0-100.0); Monocytes # (A) 0.9 k/uL (0-1.0); Monocytes % (A) 9 %; Neutrophils # (A) 7.5 k/uL (1.3-7.7); Neutrophils % (A) 76 %; RBC 2.37 m/uL (3.80-5.40); RDW 13.8 % (11.5-15.5); WBC 9.9 k/uL (3.8-10.6); WBC (Perox) 10.51
[2016-11-18 06:24] LABS: INR 2.6 (<1.2); Prothrombin Time 24.6 sec (9.0-12.0)
[2016-11-18] MEDS: SYMBICORT 160-4.5 MCG INHALER INHALATION SCH ×2 (08:14→19:24)
[2016-11-18] MEDS: IPRATROPIUM-ALBUTEROL 3 ML NEB INHALATION SCH ×4 (08:14→19:24)
[2016-11-18] MEDS ORDERED: LEVOFLOXACIN 250MG-D5W PMX 250 MG in DEXTROSE/WATER 1 50ML.BAG IVPB SCH (09:00)
--- NOTE | 2016-11-18 09:40 | P.PN ---
Subjective Principal diagnosis: Status post right hip hemiarthroplasty Patient is s/p right hip hemiarthroplasty on 11/13/10 for right hip fracture performed by Dr. Almanzar. She has some pain at the surgical site as expected but denies any new complaints. She is denying numbness or tingling or calf pain. Review of systems is negative for fever, chills, chest pain, nausea, vomiting, dizziness, headaches, slurred speech. Objective - Vital Signs Vital signs: Vital Signs Temp 99.4 F 11/18/16 08:00 Pulse 83 11/18/16 08:25 Resp 20 11/18/16 08:00 BP 136/74 11/18/16 08:00 Pulse Ox 93 L 11/18/16 08:00 Intake & Output 11/17/16 11/18/16 11/18/16 18:59 06:59 18:59 Intake Total 1450 160 Output Total 1600 400 Balance -150 -240 Weight 40 kg 40 kg Intake: IV 240 160 Sodium Chloride 0.9% 1, 240 160 000 ml @ 20 mls/hr IV . Q24H [facility] Rx#:[id number] Intake, IV Titration 50 Amount Levofloxacin 250Mg-D5w 50 Pmx 250 mg In Dextrose/ Water 1 50ml.bag @ 50 mls /hr IVPB Q24H [facility] Rx#: [id number] Oral 1160 Output: Urine 1600 400 Other: Voiding Method Indwelling Catheter Indwelling Catheter Indwelling Catheter # Voids 1 - Exam Inspection of the right lower extremity shows a benign surgical wound. There is no active bleeding or drainage. Neurovascular status is intact with motor and sensation throughout the right lower extremity. Calf is soft and nontender. 2+ dorsalis pedis pulse and less than 2 second cap refill is present. - Constitutional General appearance: Present: no acute distress - Psychiatric Psychiatric: Present: appropriate affect - Labs CBC & Chem 7: 11/18/16 05:19 11/17/16 05:53 Labs: Abnormal Lab Results - Last 24 Hours (Table) 11/18/16 11/18/16 Range/Units 05:19 05:19 RBC 2.37 L (3.80-5.40) m/uL Hgb 7.5 L (11.4-16.0) gm/dL Hct 23.4 L (34.0-46.0) % PT 24.6 H (9.0-12.0) sec INR 2.6 H (<1.2) Assessment and Plan (1) Hip fracture, right Narrative/Plan: She will continue with routine postop orthopedic protocol including pain management, wound care, physical therapy, DVT prophylaxis. From an orthopedic standpoint she may be transferred to an ECF. Because of her multiple significant medical comorbidities we have requested transfer to IM service. We will follow. Status: Acute Time with Patient: Less than 30
[2016-11-18] MEDS: SODIUM CHLORIDE 0.9% 1,000 ML IV SCH (10:31)
[2016-11-18] MEDS: LISINOPRIL 20 MG TAB PO SCH (11:14)
[2016-11-18] MEDS: AMIODARONE 200 MG TAB PO SCH (11:14)
[2016-11-18] MEDS: FUROSEMIDE 20 MG TAB PO SCH (11:14)
[2016-11-18] MEDS: ASPIRIN 81 MG PO SCH (11:14)
[2016-11-18] MEDS: METOPROLOL TARTRATE 25 MG TAB PO SCH ×2 (11:14→20:01)
--- NOTE | 2016-11-18 12:24 | P.PN ---
Subjective Principal diagnosis: Right hip fracture This is a pleasant 81-year-old lady with history of COPD, hypertension, paroxysmal atrial fibrillation. Was admitted to the hospital with right hip fracture and underwent surgery. She developed sudden onset of confusion and weakness and a team stroke was called and the patient was transferred to the sixth floor. Patient's INR has been therapeutic currently 2.6. Patient's d- dimer was elevated which could be related to recent surgery. She does complain of some shortness of breath related to her COPD and is on oxygen. During this admission she has had episodes of paroxysmal atrial fibrillation. Her troponins were mildly elevated which is of unclear significance. Echocardiogram with Doppler shows an ejection fraction of 55-60% with mild aortic stenosis, moderate pulmonary hypertension and mild to moderate tricuspid regurgitation. At the time my evaluation, patient is resting comfortable in bed. She verbalizes having some shortness of breath earlier this morning however is comfortable at this time. She denies complete of chest discomfort, palpitations or dizziness. Objective - Vital Signs Vital signs: Vital Signs Temp 99.4 F 11/18/16 08:00 Pulse 83 11/18/16 08:25 Resp 20 11/18/16 08:00 BP 136/74 11/18/16 08:00 Pulse Ox 93 L 11/18/16 08:00 Intake & Output 11/17/16 11/18/16 11/18/16 18:59 06:59 18:59 Intake Total 1450 160 90 Output Total 1600 400 Balance -150 -240 90 Weight 40 kg 40 kg Intake: IV 240 160 Sodium Chloride 0.9% 1, 240 160 000 ml @ 20 mls/hr IV . Q24H [facility] Rx#:[id number] Intake, IV Titration 50 Amount Levofloxacin 250Mg-D5w 50 Pmx 250 mg In Dextrose/ Water 1 50ml.bag @ 50 mls /hr IVPB Q24H [facility] Rx#: [id number] Oral 1160 90 Output: Urine 1600 400 Other: Voiding Method Indwelling Catheter Indwelling Catheter Indwelling Catheter # Voids 1 - Exam PHYSICAL EXAMINATION: HEENT: Head is atraumatic, normocephalic. Pupils equal, round. Neck is supple. There is no elevated jugular venous pressure. HEART EXAMINATION: Heart sounds irregular regular, S1 and S2 normal a systolic murmur. CHEST EXAMINATION: Lungs are clear to auscultation and precussion. No chest wall tenderness is noted on palpation or with deep breathing. ABDOMEN: Soft, nontender. Bowel sounds are heard. No organomegaly noted. EXTREMITIES: 2+ peripheral pulses with no evidence of peripheral edema and no calf tenderness noted. NEUROLOGIC patient is awake, alert and oriented x2. . - Labs CBC & Chem 7: 11/18/16 05:19 11/17/16 05:53 Labs: Abnormal Lab Results - Last 24 Hours (Table) 11/18/16 11/18/16 Range/Units 05:19 05:19 RBC 2.37 L (3.80-5.40) m/uL Hgb 7.5 L (11.4-16.0) gm/dL Hct 23.4 L (34.0-46.0) % PT 24.6 H (9.0-12.0) sec INR 2.6 H (<1.2) Assessment and Plan Plan: Assessment and plan #1 chronic atrial fibrillation, anticoagulated on Coumadin #2 TIA, likely secondary to chronic atrial fibrillation #3 status post fall with right hip fracture, status post surgery #4 COPD From cardiology's perspective, medications were reviewed and we will continue the same. At this time we will follow the patient on an as-needed basis please do not hesitate to contact us with questions. The above dictated assessment and findings were discussed with signing physician. The impression and plan of care have been directed as dictated. Diana Villa, Nurse Practitioner, acting as scribe for signing physician.
--- NOTE | 2016-11-18 12:53 | XR ---
EXAMINATION TYPE: XR chest 1V DATE OF EXAM: 11/18/2016 COMPARISON: 11/16/2016 HISTORY: Shortness of breath, hypoxia TECHNIQUE: Single frontal view of the chest is obtained. FINDINGS: Bilateral airspace disease and pleural effusion stable. Atherosclerotic change aorta with prominence of the aorta. Correlate for aneurysm. Calcified granuloma noted. Underlying COPD noted. Di ffuse osteopenia and arthropathy of the shoulder. IMPRESSION: 1. Stable bilateral infiltrate and pleural effusion. Differential diagnosis includes pneumonia versus CHF. Correlate clinically. No significant interval change. 2. Persistent prominence of the thoracic aorta correlate for aneurysmal dilation.
--- NOTE | 2016-11-18 13:34 | P.PN ---
Subjective Progress note dated 11/18/2016 This is a 81-year-old female who was admitted with a diagnosis of possible TIA. The patient seemed be doing relatively well. She's recovering from her right hip fracture. Using BiPAP intermittently at nighttime. Her COPD seems be relatively stable. Addition to the above, she has a history of the repair of the right hip fracture postop day #5 paroxysmal atrial fibrillation Gold stage IV severe COPD CAD large infrarenal abdominal aortic aneurysm spinal stenosis P VOD protein calorie malnutrition and the one episode of TIA being followed by neurology. From the pulmonary standpoint seemed be doing relatively well. No cough no wheezing. No phlegm production. No hemoptysis. Objective - Vital Signs Vital signs: Vital Signs Temp 99.4 F 11/18/16 08:00 Pulse 83 11/18/16 08:25 Resp 20 11/18/16 08:00 BP 136/74 11/18/16 08:00 Pulse Ox 93 L 11/18/16 08:00 Intake & Output 11/17/16 11/18/16 11/18/16 18:59 06:59 18:59 Intake Total 1450 160 330 Output Total 1600 400 Balance -150 -240 330 Weight 40 kg 40 kg Intake: IV 240 160 Sodium Chloride 0.9% 1, 240 160 000 ml @ 20 mls/hr IV . Q24H [facility] Rx#:[id number] Intake, IV Titration 50 Amount Levofloxacin 250Mg-D5w 50 Pmx 250 mg In Dextrose/ Water 1 50ml.bag @ 50 mls /hr IVPB Q24H [facility] Rx#: [id number] Oral 1160 330 Output: Urine 1600 400 Other: Voiding Method Indwelling Catheter Indwelling Catheter Indwelling Catheter # Voids 1 - Exam No acute distress, oriented 3. HEENT examination is grossly unremarkable. Mucous membranes are moist. No oral lesions. Neck supple. Full range of motion. No adenopathy or thyromegaly. Neck veins are flat. Cardiovascular examination reveals regular rhythm rate. S1-S2 normal. No S3- S4 or murmur. Lungs reveal mostly clear but diminished breath sounds. No wheezes or rhonchi. No crackles. Abdomen soft bowel sounds are heard. Extremities are intact. No cyanosis clubbing or edema. Skin without rash. Neurologic examination is brief but nonfocal. - Labs CBC & Chem 7: 11/18/16 05:19 11/17/16 05:53 Labs: Abnormal Lab Results - Last 24 Hours (Table) 11/18/16 11/18/16 Range/Units 05:19 05:19 RBC 2.37 L (3.80-5.40) m/uL Hgb 7.5 L (11.4-16.0) gm/dL Hct 23.4 L (34.0-46.0) % PT 24.6 H (9.0-12.0) sec INR 2.6 H (<1.2) Assessment and Plan (1) Dependence on supplemental oxygen Status: Acute (2) Fall Status: Acute (3) Hip fracture, right Status: Acute (4) Status post hip hemiarthroplasty Status: Acute (5) TIA (transient ischemic attack) Status: Suspected (6) Acute exacerbation of chronic obstructive airways disease Status: Acute (7) Nicotine dependence Status: Acute (8) Syncope Status: Acute (9) Hypertension Status: Chronic (10) PVD (peripheral vascular disease) Status: Chronic (11) Paroxysmal a-fib Status: Chronic Plan: Plan dated 11/18/2016 The patient seemed be doing relatively well. We'll continue to follow. Recommend incentive spirometry every hour while awake. We'll continue with updrafts. Encourage deep breathing coughing and clearing of secretions. Time with Patient: Less than 30
--- NOTE | 2016-11-18 14:30 | P.PN ---
Subjective 81-year-old female admitted after fall and a fracture patient underwent surgical correction clinically doing well. Patient is on anti-correlation with peptic and patient was evaluated for TIA during this hospitalization due to anisocoria all the workup is negative. Patient remains in 5 L of oxygen because of which I'm repeating the chest x-ray. Patient on clinical exam is not wheezing. Will evaluate for pulmonary edema. Patient denied any chest pain, nausea, shortness of breath, dysuria, new focal weakness. Objective - Vital Signs Vital signs: Vital Signs Temp 98.6 F 11/18/16 12:00 Pulse 86 11/18/16 12:00 Resp 18 11/18/16 12:00 BP 148/54 11/18/16 12:00 Pulse Ox 91 L 11/18/16 12:00 Intake & Output 11/17/16 11/18/16 11/18/16 18:59 06:59 18:59 Intake Total 1450 160 330 Output Total 1600 400 500 Balance -150 -240 -170 Weight 40 kg 40 kg Intake: IV 240 160 Sodium Chloride 0.9% 1, 240 160 000 ml @ 20 mls/hr IV . Q24H [facility] Rx#:[id number] Intake, IV Titration 50 Amount Levofloxacin 250Mg-D5w 50 Pmx 250 mg In Dextrose/ Water 1 50ml.bag @ 50 mls /hr IVPB Q24H [facility] Rx#: [id number] Oral 1160 330 Output: Urine 1600 400 500 Other: Voiding Method Indwelling Catheter Indwelling Catheter Indwelling Catheter # Voids 1 - Exam Gen. appearance cachectic does not appear to be in distress Neck is supple no JVD Lungs diminished breath sounds doing well. Air movement is appreciated. Heart S1-S2 heard no murmurs appreciated regular rate and rhythm abdomen is soft nontender no organomegaly hip flexion produces tenderness Neuro no focal motor or sensory deficits. Pupils are unequal however reactive light and accommodation. - Labs CBC & Chem 7: 11/18/16 05:19 11/17/16 05:53 Labs: Abnormal Lab Results - Last 24 Hours (Table) 11/18/16 11/18/16 Range/Units 05:19 05:19 RBC 2.37 L (3.80-5.40) m/uL Hgb 7.5 L (11.4-16.0) gm/dL Hct 23.4 L (34.0-46.0) % PT 24.6 H (9.0-12.0) sec INR 2.6 H (<1.2) Assessment and Plan Plan: #1 hip fracture #2 acute bronchitis. #3 end-stage COPD #4 chronic hypoxic respiratory failure:secondary to possible congestive heart failure chronic diastolic dysfunction with acute exacerbation patient will be started on IV Lasix 40 mg IV twice a day #5 CAD #6 abdominal aortic aneurysm #7 severe protein calorie malnutrition #8 severe pulmonary hypertension #9 history of atrial fibrillationon anti-coagulation therapy can Coumadin #10 rule out TIA
[2016-11-18] MEDS: MULTIVITAMINS, THERA 1 EACH TAB PO SCH (15:06)
[2016-11-18 16:51] LABS: Glucose,Whole Blood 139 mg/dL (75-99)
[2016-11-18] MEDS: FUROSEMIDE 10 MG/ML 4 ML VIAL IV SCH (17:56)
[2016-11-18] MEDS: HYDROcodone/APAP 5-325MG 1 EACH TAB PO PRN (17:56)
[2016-11-18] MEDS: AZITHROMYCIN 250 MG TAB PO SCH (17:56)
[2016-11-18] MEDS: WARFARIN 2.5 MG TAB PO SCH (17:57)
[2016-11-18] MEDS: LATANOPROST 0.005% OPHTH DROPS 2.5 ML BTL BOTH EYES SCH (20:01)
[2016-11-18] MEDS: ATORVASTATIN 10 MG TAB PO SCH (20:01)
[2016-11-18] MEDS: SENNOSIDES-DOCUSATE SODIUM 1 EACH TAB PO SCH (20:02)
[2016-11-18] MEDS: traMADol 50 MG TAB PO PRN (20:02)
[2016-11-19] MEDS: SODIUM CHLORIDE 0.9% 1,000 ML IV SCH ×2 (02:06→11:43)
[2016-11-19] MEDS: FUROSEMIDE 10 MG/ML 4 ML VIAL IV SCH ×2 (06:17→18:06)
[2016-11-19] MEDS: HYDROcodone/APAP 5-325MG 1 EACH TAB PO PRN ×3 (06:27→20:47)
[2016-11-19 06:48] LABS: CH 31.3; HCT 22.9 % (34.0-46.0); HDW 3.03; HGB 7.5 gm/dL (11.4-16.0); Hypochromasia Slight; MCHC 32.6 g/dL (31.0-37.0); MCV 98.3 fL (80.0-100.0); Mean Platelet Volume 8.3; RBC 2.33 m/uL (3.80-5.40); RDW 14.6 % (11.5-15.5); WBC 8.7 k/uL (3.8-10.6)
[2016-11-19 06:57] LABS: INR 3.8 (<1.2); Prothrombin Time 36.7 sec (9.0-12.0)
[2016-11-19 07:03] LABS: Blood Urea Nitrogen 28 mg/dL (7-17); Calcium 8.4 mg/dL (8.4-10.2); Chloride 97 mmol/L (98-107); Glucose 88 mg/dL (74-99); Non-African American GFR(MDRD) 56 (>60 ml/min/1.73 sqM); Potassium 3.8 mmol/L (3.5-5.1); Sodium 142 mmol/L (137-145)
[2016-11-19 07:11] LABS: Anion Gap 6 mmol/L
[2016-11-19 07:26] LABS: Carbon Dioxide 39 mmol/L (22-30)
--- NOTE | 2016-11-19 08:59 | P.PN ---
Subjective Principal diagnosis: Status post right hip hemiarthroplasty Patient is s/p right hip hemiarthroplasty on 11/13/10 for right hip fracture performed by Dr. Almanzar. She has some pain at the surgical site as expected but denies any new complaints. She is denying numbness or tingling or calf pain. Review of systems is negative for fever, chills, chest pain, nausea, vomiting, dizziness, headaches, slurred speech. Objective - Vital Signs Vital signs: Vital Signs Temp 97.0 F L 11/19/16 08:00 Pulse 96 11/19/16 08:00 Resp 18 11/19/16 08:00 BP 86/48 11/19/16 08:00 Pulse Ox 93 L 11/19/16 08:00 Intake & Output 11/18/16 11/19/16 11/19/16 18:59 06:59 18:59 Intake Total 450 240 240 Output Total 500 900 Balance -50 -660 240 Weight 40 kg 39 kg Intake: IV 120 Sodium Chloride 0.9% 1, 120 000 ml @ 20 mls/hr IV . Q24H [facility] Rx#:[id number] Oral 450 120 240 Output: Urine 500 900 Uretheral ([place]) 900 Other: Voiding Method Indwelling Catheter Indwelling Catheter Indwelling Catheter - Exam Inspection of the right lower extremity shows a benign surgical wound. There is no active bleeding or drainage. Neurovascular status is intact with motor and sensation throughout the right lower extremity. Calf is soft and nontender. 2+ dorsalis pedis pulse and less than 2 second cap refill is present. - Constitutional General appearance: Present: no acute distress - Psychiatric Psychiatric: Present: appropriate affect - Labs CBC & Chem 7: 11/19/16 05:58 11/19/16 05:58 Labs: Abnormal Lab Results - Last 24 Hours (Table) 11/18/16 11/19/16 11/19/16 Range/Units 16:30 05:58 05:58 RBC 2.33 L (3.80-5.40) m/uL Hgb 7.5 L (11.4-16.0) gm/dL Hct 22.9 L (34.0-46.0) % PT 36.7 H (9.0-12.0) sec INR 3.8 H (<1.2) Chloride (98-107) mmol/L Carbon Dioxide (22-30) mmol/L BUN (7-17) mg/dL POC Glucose (mg/dL) 139 H (75-99) mg/dL 11/19/16 Range/Units 05:58 RBC (3.80-5.40) m/uL Hgb (11.4-16.0) gm/dL Hct (34.0-46.0) % PT (9.0-12.0) sec INR (<1.2) Chloride 97 L (98-107) mmol/L Carbon Dioxide 39 H (22-30) mmol/L BUN 28 H (7-17) mg/dL POC Glucose (mg/dL) (75-99) mg/dL Assessment and Plan (1) Hip fracture, right Narrative/Plan: She will continue with routine postop orthopedic protocol including pain management, wound care, physical therapy, DVT prophylaxis. From an orthopedic standpoint she may be transferred to an ECF when okay with internal medicine . We will follow. Status: Acute Time with Patient: Less than 30
[2016-11-19] MEDS: LISINOPRIL 20 MG TAB PO SCH (09:01)
[2016-11-19] MEDS: METOPROLOL TARTRATE 25 MG TAB PO SCH ×2 (09:01→20:46)
[2016-11-19] MEDS: SYMBICORT 160-4.5 MCG INHALER INHALATION SCH ×2 (09:10→20:37)
[2016-11-19] MEDS: IPRATROPIUM-ALBUTEROL 3 ML NEB INHALATION SCH ×4 (09:10→20:37)
[2016-11-19] MEDS: AMIODARONE 200 MG TAB PO SCH (11:25)
[2016-11-19] MEDS: traMADol 50 MG TAB PO PRN (11:25)
[2016-11-19] MEDS: ASPIRIN 81 MG PO SCH (11:25)
[2016-11-19] MEDS: MULTIVITAMINS, THERA 1 EACH TAB PO SCH (11:42)
[2016-11-19] MEDS: WARFARIN 2.5 MG TAB PO SCH (18:06)
[2016-11-19] MEDS: AZITHROMYCIN 250 MG TAB PO SCH (20:46)
[2016-11-19] MEDS: ATORVASTATIN 10 MG TAB PO SCH (20:46)
[2016-11-19] MEDS: SENNOSIDES-DOCUSATE SODIUM 1 EACH TAB PO SCH (20:47)
--- NOTE | 2016-11-19 21:15 | PN ---
PROGRESS NOTE DATE OF SERVICE: 11/19/2016. An 81-year-old female admitted with a diagnosis of possible TIA. The patient seems to be doing relatively well. She is recovering from her right hip fracture, using BiPAP intermittently at nighttime. Her COPD seems to be relatively stable. In addition to the above, she has a history of a repair of right hip fracture, postop day #6, paroxysmal atrial fibrillation, GOLD stage IV or severe COPD, CAD, large infrarenal abdominal aortic aneurysm, spinal stenosis, peripheral vascular occlusive disease, protein-calorie malnutrition and one episode of TIA, is being followed by Neurology. From a pulmonary standpoint, doing relatively well. Denies any worsening shortness of breath, cough or wheezing, phlegm production, or hemoptysis. Current vital signs include temperature 97, heart rate 90, respiratory rate 18, blood pressure 80/43, mean 55 and a 4L saturation 95%. Appears is no acute distress. HEENT: Grossly unremarkable. Mucous membranes are moist. No oral lesions. NECK: Supple. Full range of motion. No adenopathy or thyromegaly. Neck veins are flat. Cardiovascular reveals regular rhythm and rate. S1, S2 normal. No S3, S4 or murmur. Lungs reveal diminished breath sounds. A few scattered rhonchi. No wheezes or crackles. Breath sounds are equal bilaterally. ABDOMEN: Soft. Bowel sounds are heard. There is no mass or tenderness. EXTREMITIES: Intact. No cyanosis, clubbing or edema. SKIN: Without rash. NEUROLOGIC: Brief, but nonfocal. LABS: Reviewed. White count 8.7, hemoglobin 7.5, which is stable, hematocrit 22.9, platelet count 292,000. PT, INR were 36.7 and 3.8, respectively. Sodium, potassium 142 and 3.8, chloride 97, CO2 39, BUN and creatinine were 20 and 0.96. The rest of the labs are reviewed. Microbiology is negative. Chest x-ray from 11/18 suggests bilateral atelectasis or basilar infiltrates and small pleural effusions. This could be consistent with underlying heart failure. There is a thoracic aorta prominence consistent with aneurysmal dilatation. Medications are reviewed. All lab data is reviewed. ASSESSMENT: 1. Chronic hypoxemia. 2. Status post fall. 3. Hypertension. 4. Peripheral vascular occlusive disease. 5. Paroxysmal atrial fibrillation. 6. Status post hip hemiarthroplasty. 7. Transient ischemic attack. 8. Chronic obstructive pulmonary disease. 9. Nicotine dependence. 10.Syncope. PLAN: The patient seems to be doing relatively well. Stable from the pulmonary standpoint. We will continue to follow. No additional recommendationsat this time. MMODL / IJN: [id number] /
[2016-11-19] MEDS: LATANOPROST 0.005% OPHTH DROPS 2.5 ML BTL BOTH EYES SCH (23:20)
[2016-11-20] MEDS: FUROSEMIDE 10 MG/ML 4 ML VIAL IV SCH ×2 (06:18→17:30)
[2016-11-20] MEDS: DIAZEPAM 5 MG TAB PO PRN ×2 (06:18→21:09)
[2016-11-20] MEDS: HYDROcodone/APAP 5-325MG 1 EACH TAB PO PRN ×2 (06:18→12:32)
[2016-11-20 06:33] LABS: Anion Gap 5 mmol/L; Blood Urea Nitrogen 30 mg/dL (7-17); Calcium 8.5 mg/dL (8.4-10.2); Chloride 97 mmol/L (98-107); Glucose 75 mg/dL (74-99); Non-African American GFR(MDRD) 52 (>60 ml/min/1.73 sqM); Sodium 142 mmol/L (137-145)
[2016-11-20 06:34] LABS: INR 4.2 (<1.2); Prothrombin Time 41.8 sec (9.0-12.0)
[2016-11-20] MEDS: MORPHINE SULFATE 4 MG/ML SYRINGE IV PRN (06:34)
[2016-11-20 06:43] LABS: Carbon Dioxide 40 mmol/L (22-30)
[2016-11-20] MEDS: IPRATROPIUM-ALBUTEROL 3 ML NEB INHALATION SCH ×4 (07:28→20:35)
[2016-11-20] MEDS: SYMBICORT 160-4.5 MCG INHALER INHALATION SCH ×2 (07:28→20:35)
[2016-11-20] MEDS: METOPROLOL TARTRATE 25 MG TAB PO SCH ×2 (09:05→21:09)
[2016-11-20] MEDS: AMIODARONE 200 MG TAB PO SCH (09:05)
[2016-11-20] MEDS: MULTIVITAMINS, THERA 1 EACH TAB PO SCH (09:06)
[2016-11-20] MEDS: ASPIRIN 81 MG PO SCH (09:06)
[2016-11-20] MEDS: HYDROmorphone 1 MG/ML 1 ML SYRINGE IVP PRN ×3 (09:17→20:39)
[2016-11-20] MEDS: traMADol 50 MG TAB PO PRN ×2 (09:18→15:07)
--- NOTE | 2016-11-20 12:35 | P.PN ---
Subjective Progress note dated 11/18/2016 This is a 81-year-old female who was admitted with a diagnosis of possible TIA. The patient seemed be doing relatively well. She's recovering from her right hip fracture. Using BiPAP intermittently at nighttime. Her COPD seems be relatively stable. Addition to the above, she has a history of the repair of the right hip fracture postop day #5 paroxysmal atrial fibrillation Gold stage IV severe COPD CAD large infrarenal abdominal aortic aneurysm spinal stenosis P VOD protein calorie malnutrition and the one episode of TIA being followed by neurology. From the pulmonary standpoint seemed be doing relatively well. No cough no wheezing. No phlegm production. No hemoptysis. Progress note dated 11/20/2016 81-year-old female well-known to our service. She was admitted with a diagnosis of possible TIA. She is also recovering from right hip fracture surgery. Using BiPAP at nighttime intermittently. COPD seems relatively stable. I believe the plan for this patient is to eventually be discharged to [facility]. In addition to the above, she has a history of atrial fibrillation severe stage IV COPD CAD large infrarenal abdominal aortic aneurysm spinal stenosis peripheral vascular occlusive disease protein/ calorie malnutrition and the neurologic symptoms as mentioned above. The patient seemed be doing better. Less short of breath. No cough. No phlegm. No chest pain. No fever no chills. No nausea vomiting or diarrhea. Objective - Vital Signs Vital signs: Vital Signs Temp 97.9 F 11/20/16 03:06 Pulse 68 11/20/16 11:49 Resp 22 11/20/16 08:00 BP 110/55 11/20/16 07:50 Pulse Ox 97 11/20/16 07:50 Intake & Output 11/19/16 11/20/16 11/20/16 18:59 06:59 18:59 Intake Total 240 530 0 Output Total 400 400 Balance -160 130 0 Weight 39 kg 37 kg Intake: IV 220 Sodium Chloride 0.9% 1, 220 000 ml @ 20 mls/hr IV . Q24H [facility] Rx#:[id number] Oral 240 0 Blood Product 0 310 Rc As-1 Unit 0 310 [id number] Output: Urine 400 400 Other: Voiding Method Indwelling Catheter Indwelling Catheter Indwelling Catheter - Exam No acute distress, oriented 3. HEENT examination is grossly unremarkable. Mucous membranes are moist. No oral lesions. Neck supple. Full range of motion. No adenopathy or thyromegaly. Neck veins are flat. Cardiovascular examination reveals regular rhythm rate. S1-S2 normal. No S3- S4 or murmur. Lungs reveal mostly clear but diminished breath sounds. No wheezes or rhonchi. No crackles. Abdomen soft bowel sounds are heard. Extremities are intact. No cyanosis clubbing or edema. Skin without rash. Neurologic examination is brief but nonfocal. - Labs CBC & Chem 7: 11/19/16 05:58 11/20/16 05:22 Labs: Abnormal Lab Results - Last 24 Hours (Table) 11/19/16 11/20/16 11/20/16 Range/Units 10:58 05:22 05:22 PT 41.8 H (9.0-12.0) sec INR 4.2 H (<1.2) Chloride 97 L (98-107) mmol/L Carbon Dioxide 40 H* (22-30) mmol/L BUN 30 H (7-17) mg/dL Crossmatch See Detail Assessment and Plan (1) Dependence on supplemental oxygen Status: Acute (2) Fall Status: Acute (3) Hip fracture, right Status: Acute (4) Status post hip hemiarthroplasty Status: Acute (5) TIA (transient ischemic attack) Status: Suspected (6) Acute exacerbation of chronic obstructive airways disease Status: Acute (7) Nicotine dependence Status: Acute (8) Syncope Status: Acute (9) Hypertension Status: Chronic (10) PVD (peripheral vascular disease) Status: Chronic (11) Paroxysmal a-fib Status: Chronic Plan: Plan dated 11/18/2016 The patient seemed be doing relatively well. We'll continue to follow. Recommend incentive spirometry every hour while awake. We'll continue with updrafts. Encourage deep breathing coughing and clearing of secretions. Plan dated 11/20/2016 The patient seemed to do relatively well. We'll continue to follow. She has a number of medical problems including but not limited to severe COPD CAD atrial fibrillation large infrarenal abdominal aortic aneurysm spinal stenosis peripheral vascular occlusive disease and protein calorie malnutrition. From a pulmonary standpoint she is doing relatively well. She is recovering from her right hip fracture and repair. [facility] We'll continue to follow. Time with Patient: Less than 30
--- NOTE | 2016-11-20 15:02 | P.PN ---
Subjective 81-year-old female admitted after fall and a fracture patient underwent surgical correction clinically doing well. Patient is on anti-correlation with peptic and patient was evaluated for TIA during this hospitalization due to anisocoria all the workup is negative. Patient remains in 5 L of oxygen because of which I'm repeating the chest x-ray. Patient on clinical exam is not wheezing. Will evaluate for pulmonary edema. 11/19/2016 Patient is feeling much better compared to yesterday did urinate quite a bit blood pressures borderline because of his lisinopril is being discontinued and patient will continued on Lasix possibly of discharge tomorrow. Continue on Coumadin of 2.5 mg and recheck INR tomorrow Patient denied any chest pain, nausea, shortness of breath, dysuria, new focal weakness. Objective - Vital Signs Vital signs: Vital Signs Temp 97.9 F 11/20/16 03:06 Pulse 68 11/20/16 11:49 Resp 22 11/20/16 08:00 BP 110/55 11/20/16 07:50 Pulse Ox 97 11/20/16 07:50 Intake & Output 11/19/16 11/20/16 11/20/16 18:59 06:59 18:59 Intake Total 240 530 0 Output Total 400 400 Balance -160 130 0 Weight 39 kg 37 kg Intake: IV 220 Sodium Chloride 0.9% 1, 220 000 ml @ 20 mls/hr IV . Q24H [facility] Rx#:[id number] Oral 240 0 Blood Product 0 310 Rc As-1 Unit 0 310 [id number] Output: Urine 400 400 Other: Voiding Method Indwelling Catheter Indwelling Catheter Indwelling Catheter - Exam Gen. appearance cachectic does not appear to be in distress Neck is supple no JVD Lungs diminished breath sounds doing well. Air movement is appreciated. Heart S1-S2 heard no murmurs appreciated regular rate and rhythm abdomen is soft nontender no organomegaly hip flexion produces tenderness Neuro no focal motor or sensory deficits. Pupils are unequal however reactive light and accommodation. - Labs CBC & Chem 7: 11/19/16 05:58 11/20/16 05:22 Labs: Abnormal Lab Results - Last 24 Hours (Table) 11/19/16 11/20/16 11/20/16 Range/Units 10:58 05:22 05:22 PT 41.8 H (9.0-12.0) sec INR 4.2 H (<1.2) Chloride 97 L (98-107) mmol/L Carbon Dioxide 40 H* (22-30) mmol/L BUN 30 H (7-17) mg/dL Crossmatch See Detail Assessment and Plan Plan: #1 hip fracture #2 acute bronchitis. #3 end-stage COPD #4 chronic hypoxic respiratory failure:secondary to possible congestive heart failure chronic diastolic dysfunction with acute exacerbation patient will be started on IV Lasix 40 mg IV twice a day which will be continued #5 CAD #6 abdominal aortic aneurysm #7 severe protein calorie malnutrition #8 severe pulmonary hypertension #9 history of atrial fibrillationon anti-coagulation therapy can Coumadin #10 rule out TIA Plan as mentioned and told history possibly of discharge tomorrow once her heart failure improves patient may need to go to subacute rehabilitation.
--- NOTE | 2016-11-20 15:31 | P.DS ---
Providers Date of admission: 11/12/16 01:12 Expected date of discharge: 11/20/16 Attending physician: Gavin Robles Consults: 11/12/16 01:14 Consult Physician Urgent Consulting Provider: Gavin Del Valle Consult Reason/Comments: Medical clearance for orthopedic surgery Do you want consulting provider notified?: Yes, Notify in am 11/12/16 09:34 Consult Physician Urgent Consulting Provider: Gavin Del Valle Consult Reason/Comments: INR correction for surgery 11/13/16 Do you want consulting provider notified?: Yes 11/12/16 15:18 Consult Physician Urgent Consulting Provider: Rodney Toledo Consult Reason/Comments: COPD Do you want consulting provider notified?: Already Contacted 11/16/16 06:26 Consult Physician Routine Consulting Provider: Alejandro Nichols Consult Reason/Comments: New consult - code stroke Do you want consulting provider notified?: Yes Consult Physician Routine Consulting Provider: Goldie Rangel Consult Reason/Comments: Code Stroke Do you want consulting provider notified?: Yes 11/17/16 11:03 Consult Physician Urgent Consulting Provider: Curt Hernandez Consult Reason/Comments: TIA/Carotid stenosis Do you want consulting provider notified?: Yes Primary care physician: Magui Kim Hospital Course: Final Diagnoses: #1 hip fracture, status post hemiarthroplasty #2 acute bronchitis. #3 end-stage COPD #4 chronic hypoxic respiratory failure:secondary to possible congestive heart failure chronic diastolic dysfunction with acute exacerbation #5 CAD #6 abdominal aortic aneurysm #7 severe protein calorie malnutrition #8 severe pulmonary hypertension #9 history of chronic proximal atrial fibrillationon anti-coagulation therapy on Coumadin #10 suspected TIA, workup negative. Bilateral carotid stenosis greater than 50% ; evaluated by vascular surgery, reported is not on high-grade bilateral carotid stenosis with syncopal symptoms unlikely to be carotid in origin, medical management. Hospital course:81-year-old female admitted after fall and a fracture patient underwent surgical correction clinically doing well. Patient is on anticoagulation with coumadin. Patient was evaluated for TIA during this hospitalization due to anisocoria all the workup is negative.; Carotid workup as mentioned above. Evaluated by multiple consults. Diuresed on Lasix IV push. Significant clinical improvement. Patient has been cleared by all consults for discharge to [facility]. Patient is being discharged to [facility] in a stable condition with guarded prognosis. The impression and plan of care has been dictated as directed as a scribe. : I performed a H&P examination of this patient and discussed the same with the dictator. I agree with the dictator's note. Any additional findings/opinions/ etc. will be noted. Patient Condition at Discharge: Stable Plan - Discharge Summary New Discharge Prescriptions: New Aspirin 81 mg PO DAILY Ipratropium-Albuterol Nebulize [Duoneb 0.5 mg-3 mg/3 ml Soln] 3 ml INHALATION RT-QID neb Ipratropium-Albuterol Nebulize [Duoneb 0.5 mg-3 mg/3 ml Soln] 3 ml INHALATION RT-Q2H PRN neb PRN Reason: Shortness Of Breath Or Wheezing Sennosides-Docusate Sodium [Senokot-S] 2 each PO HS tab traMADol HCl [Ultram] 50 mg PO Q6H PRN #20 tab PRN Reason: Mild To Moderate Pain Cefuroxime Axetil [Ceftin] 500 mg PO BID #10 tab HYDROcodone/APAP 5-325MG [Valera 5-325] 1 tab PO Q6HR PRN #20 tab PRN Reason: Pain Continue Fluticasone/Salmeterol [Advair 250-50 Diskus] 1 puff INHALATION RT-BID Cholecalciferol [Vitamin D3] 400 unit PO DAILY Multivitamins, Thera [Multivitamin (formulary)] 1 tab PO DAILY Atorvastatin [Lipitor] 10 mg PO HS Amiodarone [Cordarone] 200 mg PO DAILY Acetaminophen Tab [Tylenol] 650 mg PO Q4H PRN PRN Reason: Pain Omeprazole [PriLOSEC] 40 mg PO AC-BRKFST Metoprolol Tartrate [Lopressor] 25 mg PO BID #60 tab Famotidine [Pepcid] 20 mg PO BID Latanoprost Ophth [Xalatan 0.005%] 1 drops BOTH EYES HS ALPRAZolam [Xanax] 0.25 mg PO HS PRN #5 PRN Reason: restless legs Changed Furosemide [Lasix] 40 mg PO DAILY #0 Discontinued Warfarin [Coumadin] 2.5 mg PO HS Digoxin [Lanoxin] 125 mcg PO DAILY #30 tab Tiotropium 18 Mcg/Puff [Spiriva] 1 cap INHALATION RT-DAILY Ipratropium-Albuterol Nebulize [Duoneb 0.5 mg-3 mg/3 ml Soln] 3 ml INHALATION RT-TID PRN PRN Reason: Shortness Of Breath Discharge Medication List Acetaminophen Tab [Tylenol] 650 mg PO Q4H PRN 01/05/14 [History] Amiodarone [Cordarone] 200 mg PO DAILY 01/05/14 [History] Atorvastatin [Lipitor] 10 mg PO HS 01/05/14 [History] Cholecalciferol [Vitamin D3] 400 unit PO DAILY 01/05/14 [History] Fluticasone/Salmeterol [Advair 250-50 Diskus] 1 puff INHALATION RT-BID 01/05/14 [History] Multivitamins, Thera [Multivitamin (formulary)] 1 tab PO DAILY 01/05/14 [History ] Omeprazole [PriLOSEC] 40 mg PO AC-BRKFST 01/05/14 [History] Metoprolol Tartrate [Lopressor] 25 mg PO BID #60 tab 01/10/14 [Rx] Famotidine [Pepcid] 20 mg PO BID 11/06/15 [History] Latanoprost Ophth [Xalatan 0.005%] 1 drops BOTH EYES HS 11/12/16 [History] ALPRAZolam [Xanax] 0.25 mg PO HS PRN #5 11/20/16 [Rx] Aspirin 81 mg PO DAILY 11/20/16 [Rx] Cefuroxime Axetil [Ceftin] 500 mg PO BID #10 tab 11/20/16 [Rx] Furosemide [Lasix] 40 mg PO DAILY #0 11/20/16 [Rx] HYDROcodone/APAP 5-325MG [Valera 5-325] 1 tab PO Q6HR PRN #20 tab 11/20/16 [Rx] Ipratropium-Albuterol Nebulize [Duoneb 0.5 mg-3 mg/3 ml Soln] 3 ml INHALATION RT -Q2H PRN neb 11/20/16 [Rx] Ipratropium-Albuterol Nebulize [Duoneb 0.5 mg-3 mg/3 ml Soln] 3 ml INHALATION RT -QID neb 11/20/16 [Rx] Sennosides-Docusate Sodium [Senokot-S] 2 each PO HS tab 11/20/16 [Rx] traMADol HCl [Ultram] 50 mg PO Q6H PRN #20 tab 11/20/16 [Rx] Follow up Appointment(s)/Referral(s): Mega Hills MD [STAFF PHYSICIAN] - 3 Days (While at [facility]) Magui Kim MD [Primary Care Provider] - 1 Week (After DC from [facility]) Curt Hernandez DO [Doctor of Osteopathic Medicine] - 12/17/16 10:15 am Maged Almanzar MD [Medical Doctor] - 10 Days Activity/Diet/Wound Care/Special Instructions: Aline received Coumadin 2.5mg last night, Current INR 4.2, hold coumadin tonight, recheck Pt/INR in am for further dosing of coumadin Confirm cardiology follow-up appointment prior to discharge. DIet: Coumadin/CHF Diet F/U with Dr. Almanzar Weight bear as tolerated Keep wound clean and dry Dailt pt/inr cbc,bmp in 3 days Oxygen settings/BiPAP as per pulmonary Discharge Disposition: TRANSFER TO SNF/ECF
[2016-11-20 15:33] LABS: Anisocytosis Slight; Basophils % (A) 0 %; Eosinophils # (A) 0.2 k/uL (0-0.7); Eosinophils % (A) 2 %; HCT 30.5 % (34.0-46.0); HDW 3.66; Hypochromasia Moderate; Luc # (Auto) 0.21; Luc % (Auto) 2; Lymphocytes # (A) 1.2 k/uL (1.0-4.8); Lymphocytes % (A) 10 %; MCH 30.8 pg (25.0-35.0); MCHC 31.5 g/dL (31.0-37.0); MCV 97.7 fL (80.0-100.0); Macrocytosis Slight; Mean Platelet Volume 8.9; Monocytes # (A) 0.8 k/uL (0-1.0); Monocytes % (A) 6 %; Neutrophils # (A) 9.7 k/uL (1.3-7.7); Neutrophils % (A) 80 %; Poikilocytosis Slight; RBC 3.13 m/uL (3.80-5.40); RDW 16.5 % (11.5-15.5); WBC 12.1 k/uL (3.8-10.6); WBC (Perox) 12.34
[2016-11-20 15:42] LABS: HGB 9.6 gm/dL (11.4-16.0)
[2016-11-20] MEDS: WARFARIN 2.5 MG TAB PO SCH (16:20)
--- NOTE | 2016-11-20 16:21 | P.PN ---
Subjective Progress note being dictated for Dr. Robles Interval history:81-year-old female admitted after fall and a fracture patient underwent surgical correction clinically doing well. Patient is on anti- correlation with peptic and patient was evaluated for TIA during this hospitalization due to anisocoria all the workup is negative. Patient remains in 5 L of oxygen because of which I'm repeating the chest x-ray. Patient on clinical exam is not wheezing. Will evaluate for pulmonary edema. 11/19/2016 Patient is feeling much better compared to yesterday did urinate quite a bit blood pressures borderline because of his lisinopril is being discontinued and patient will continued on Lasix possibly of discharge tomorrow. Continue on Coumadin of 2.5 mg and recheck INR tomorrow 11/20/2016 . This morning developed a panic attack, requiring BiPAP, subsided, currently maintaining O2 sats of 92% on 4 LNC. Sitting up in chair, nibbling at food, drinking ensure. INR 4.2, Coumadin and placed on hold today. Diuresing well on Lasix with 24-hour I&O reflecting a negative fluid balance, mild worsening in renal function. Receiving 1 unit of packed RBCs for hemoglobin of 7.5 yesterday with current hemoglobin 9.6. Objective - Vital Signs Vital signs: Vital Signs Temp 97.9 F 11/20/16 03:06 Pulse 70 11/20/16 16:02 Resp 22 11/20/16 08:00 BP 110/55 11/20/16 07:50 Pulse Ox 92 L 11/20/16 16:02 Intake & Output 11/19/16 11/20/16 11/20/16 18:59 06:59 18:59 Intake Total 240 530 0 Output Total 400 400 Balance -160 130 0 Weight 39 kg 37 kg Intake: IV 220 Sodium Chloride 0.9% 1, 220 000 ml @ 20 mls/hr IV . Q24H [facility] Rx#:[id number] Oral 240 0 Blood Product 0 310 Rc As-1 Unit 0 310 [id number] Output: Urine 400 400 Other: Voiding Method Indwelling Catheter Indwelling Catheter Indwelling Catheter - Exam Gen. appearance cachectic, sitting up in chair, no acute distress Neck is supple no JVD Lungs diminished breath sounds doing well. Air movement appreciated. Heart S1-S2 heard no murmurs appreciated regular rate and rhythm abdomen is soft nontender no organomegaly hip flexion produces tenderness Neuro no focal motor or sensory deficits. Pupils are unequal however reactive light and accommodation. - Labs CBC & Chem 7: 11/20/16 05:22 11/20/16 05:22 Labs: Abnormal Lab Results - Last 24 Hours (Table) 11/19/16 11/20/16 11/20/16 Range/Units 10:58 05:22 05:22 WBC (3.8-10.6) k/uL RBC (3.80-5.40) m/uL Hgb (11.4-16.0) gm/dL Hct (34.0-46.0) % RDW (11.5-15.5) % Neutrophils # (1.3-7.7) k/uL PT 41.8 H (9.0-12.0) sec INR 4.2 H (<1.2) Chloride 97 L (98-107) mmol/L Carbon Dioxide 40 H* (22-30) mmol/L BUN 30 H (7-17) mg/dL Crossmatch See Detail 11/20/16 Range/Units 05:22 WBC 12.1 H (3.8-10.6) k/uL RBC 3.13 L (3.80-5.40) m/uL Hgb 9.6 L D (11.4-16.0) gm/dL Hct 30.5 L (34.0-46.0) % RDW 16.5 H (11.5-15.5) % Neutrophils # 9.7 H (1.3-7.7) k/uL PT (9.0-12.0) sec INR (<1.2) Chloride (98-107) mmol/L Carbon Dioxide (22-30) mmol/L BUN (7-17) mg/dL Crossmatch Assessment and Plan Plan: #1 hip fracture, status post surgical repair #2 acute bronchitis. #3 end-stage COPD #4 chronic hypoxic respiratory failure:secondary to possible congestive heart failure chronic diastolic dysfunction with acute exacerbation patient will be started on IV Lasix 40 mg IV twice a day which will be continued #5 CAD #6 abdominal aortic aneurysm #7 severe protein calorie malnutrition #8 severe pulmonary hypertension #9 history of atrial fibrillationon anti-coagulation therapy can Coumadin #10 suspect TIA, workup negative Plan: Continue on current medication regime ,monitoring and symptomatic treatment. Continue diuresing. Close monitoring of renal function , electrolytes and hemoglobin with repeat labs ordered for a.m. Discharge planning in progress for [facility] once BiPAP is arranged at the ECF. Hold Coumadin tonight repeat INR in a.m. for further dosing. Further recommendations to follow. The impression and plan of care has been dictated as directed. : I performed a H&P examination of this patient and discussed the same with the dictator. I agree with the dictator's note. Any additional findings/opinions/ etc. will be noted.
[2016-11-20] MEDS: AZITHROMYCIN 250 MG TAB PO SCH (17:30)
[2016-11-20] MEDS: LATANOPROST 0.005% OPHTH DROPS 2.5 ML BTL BOTH EYES SCH (21:08)
[2016-11-20] MEDS: SENNOSIDES-DOCUSATE SODIUM 1 EACH TAB PO SCH (21:09)
[2016-11-20] MEDS: ATORVASTATIN 10 MG TAB PO SCH (21:09)
[2016-11-21] MEDS: SODIUM CHLORIDE 0.9% 1,000 ML IV SCH (06:03)
[2016-11-21] MEDS: FUROSEMIDE 10 MG/ML 4 ML VIAL IV SCH (06:03)
[2016-11-21 06:10] LABS: INR 4.6 (<1.2); Prothrombin Time 45.6 sec (9.0-12.0)
[2016-11-21] MEDS: HYDROmorphone 1 MG/ML 1 ML SYRINGE IVP PRN (06:10)
[2016-11-21 06:13] LABS: Anisocytosis Slight; Basophils % (A) 0 %; Blood Urea Nitrogen 44 mg/dL (7-17); CH 30.1; CHCM 31.5; Calcium 8.4 mg/dL (8.4-10.2); Chloride 93 mmol/L (98-107); Eosinophils # (A) 0.2 k/uL (0-0.7); Eosinophils % (A) 1 %; Glucose 98 mg/dL (74-99); HCT 29.2 % (34.0-46.0); HDW 3.51; HGB 9.5 gm/dL (11.4-16.0); Hypochromasia Slight; Luc # (Auto) 0.22; Luc % (Auto) 2; Lymphocytes # (A) 1.1 k/uL (1.0-4.8); Lymphocytes % (A) 9 %; MCH 31.4 pg (25.0-35.0); MCHC 32.5 g/dL (31.0-37.0); MCV 96.6 fL (80.0-100.0); Mean Platelet Volume 7.7; Monocytes # (A) 0.7 k/uL (0-1.0); Monocytes % (A) 6 %; Neutrophils # (A) 10.5 k/uL (1.3-7.7); Neutrophils % (A) 83 %; Non-African American GFR(MDRD) 53 (>60 ml/min/1.73 sqM); Poikilocytosis Slight; Potassium 4.5 mmol/L (3.5-5.1); RBC 3.02 m/uL (3.80-5.40); RDW 16.8 % (11.5-15.5); Sodium 140 mmol/L (137-145); WBC 12.8 k/uL (3.8-10.6); WBC (Perox) 13.19
[2016-11-21 06:20] LABS: Anion Gap 5 mmol/L
[2016-11-21 06:22] LABS: Carbon Dioxide 42 mmol/L (22-30)
[2016-11-21] MEDS: IPRATROPIUM-ALBUTEROL 3 ML NEB INHALATION SCH ×3 (07:39→16:22)
[2016-11-21] MEDS: SYMBICORT 160-4.5 MCG INHALER INHALATION SCH (07:40)
[2016-11-21] MEDS: ASPIRIN 81 MG PO SCH (08:41)
[2016-11-21] MEDS: AMIODARONE 200 MG TAB PO SCH (08:41)
[2016-11-21] MEDS: MULTIVITAMINS, THERA 1 EACH TAB PO SCH (08:42)
[2016-11-21] MEDS: METOPROLOL TARTRATE 25 MG TAB PO SCH (08:42)
[2016-11-21 10:17] VITALS: RESP 18
[2016-11-21] MEDS: HYDROcodone/APAP 5-325MG 1 EACH TAB PO PRN ×2 (10:51→15:55)
[2016-11-21 11:55] VITALS: BP 97/64; PULSE 68; TEMP 98.4
[2016-11-21 14:49] VITALS: BMI 18.1
--- NOTE | 2016-11-21 14:57 | P.PN ---
Subjective Progress note dated 11/18/2016 This is a 81-year-old female who was admitted with a diagnosis of possible TIA. The patient seemed be doing relatively well. She's recovering from her right hip fracture. Using BiPAP intermittently at nighttime. Her COPD seems be relatively stable. Addition to the above, she has a history of the repair of the right hip fracture postop day #5 paroxysmal atrial fibrillation Gold stage IV severe COPD CAD large infrarenal abdominal aortic aneurysm spinal stenosis P VOD protein calorie malnutrition and the one episode of TIA being followed by neurology. From the pulmonary standpoint seemed be doing relatively well. No cough no wheezing. No phlegm production. No hemoptysis. Progress note dated 11/20/2016 81-year-old female well-known to our service. She was admitted with a diagnosis of possible TIA. She is also recovering from right hip fracture surgery. Using BiPAP at nighttime intermittently. COPD seems relatively stable. I believe the plan for this patient is to eventually be discharged to [facility] on the [facility]. In addition to the above, she has a history of atrial fibrillation severe stage IV COPD CAD large infrarenal abdominal aortic aneurysm spinal stenosis peripheral vascular occlusive disease protein/ calorie malnutrition and the neurologic symptoms as mentioned above. The patient seemed be doing better. Less short of breath. No cough. No phlegm. No chest pain. No fever no chills. No nausea vomiting or diarrhea. Progress note dated 11/21/2016 81-year-old female well-known to our service. She sees my partner in the office. She has a history of a possible TIA or be discharged to [facility] in the [facility] when she leaves. She is also recovering from right hip fracture surgery. Uses BiPAP at nighttime. COPD seems relatively stable. The patient has a history of atrial fibrillation severe stage IV COPD CAD large infrarenal abdominal aortic aneurysm spinal stenosis peripheral vascular occlusive disease protein calorie malnutrition and the recent TIA/CVA. The patient seemed be doing better. Not short of breath. Cough wheezing. No fever no chills. No nausea vomiting or diarrhea. Objective - Vital Signs Vital signs: Vital Signs Temp 98.4 F 11/21/16 11:53 Pulse 68 11/21/16 11:55 Resp 18 11/21/16 11:55 BP 97/64 11/21/16 11:53 Pulse Ox 91 L 11/21/16 11:53 Intake & Output 11/20/16 11/21/16 11/21/16 18:59 06:59 18:59 Intake Total 130 370 260 Balance 130 370 260 Weight 42 kg 42 kg Intake: IV 320 Sodium Chloride 0.9% 1, 320 000 ml @ 20 mls/hr IV . Q24H LANETTE Rx#:[id number] Intake, IV Titration 50 Amount cefTRIAXone 1,000 mg In 50 Sodium Chloride 0.9% 50 ml @ 100 mls/hr IVPB Q24HR [facility]ETTE Rx#:[id number] Oral 130 260 Other: Voiding Method Indwelling Catheter Indwelling Catheter Indwelling Catheter # Bowel Movements 1 - Exam No acute distress, oriented 3. HEENT examination is grossly unremarkable. Mucous membranes are moist. No oral lesions. Neck supple. Full range of motion. No adenopathy or thyromegaly. Neck veins are flat. Cardiovascular examination reveals regular rhythm rate. S1-S2 normal. No S3- S4 or murmur. Lungs reveal mostly clear but diminished breath sounds. No wheezes or rhonchi. No crackles. Abdomen soft bowel sounds are heard. Extremities are intact. No cyanosis clubbing or edema. Skin without rash. Neurologic examination is brief but nonfocal. - Labs CBC & Chem 7: 11/21/16 05:31 11/21/16 05:31 Labs: Abnormal Lab Results - Last 24 Hours (Table) 11/20/16 11/21/16 11/21/16 Range/Units 05:22 05:31 05:31 WBC 12.1 H 12.8 H (3.8-10.6) k/uL RBC 3.13 L 3.02 L (3.80-5.40) m/uL Hgb 9.6 L D 9.5 L (11.4-16.0) gm/dL Hct 30.5 L 29.2 L (34.0-46.0) % RDW 16.5 H 16.8 H (11.5-15.5) % Neutrophils # 9.7 H 10.5 H (1.3-7.7) k/uL PT (9.0-12.0) sec INR (<1.2) Chloride 93 L (98-107) mmol/L Carbon Dioxide 42 H* (22-30) mmol/L BUN 44 H (7-17) mg/dL 11/21/16 Range/Units 05:31 WBC (3.8-10.6) k/uL RBC (3.80-5.40) m/uL Hgb (11.4-16.0) gm/dL Hct (34.0-46.0) % RDW (11.5-15.5) % Neutrophils # (1.3-7.7) k/uL PT 45.6 H (9.0-12.0) sec INR 4.6 H (<1.2) Chloride (98-107) mmol/L Carbon Dioxide (22-30) mmol/L BUN (7-17) mg/dL Assessment and Plan (1) Dependence on supplemental oxygen Status: Acute (2) Fall Status: Acute (3) Hip fracture, right Status: Acute (4) Status post hip hemiarthroplasty Status: Acute (5) TIA (transient ischemic attack) Status: Suspected (6) Acute exacerbation of chronic obstructive airways disease Status: Acute (7) Nicotine dependence Status: Acute (8) Syncope Status: Acute (9) Hypertension Status: Chronic (10) PVD (peripheral vascular disease) Status: Chronic (11) Paroxysmal a-fib Status: Chronic Plan: Plan dated 11/18/2016 The patient seemed be doing relatively well. We'll continue to follow. Recommend incentive spirometry every hour while awake. We'll continue with updrafts. Encourage deep breathing coughing and clearing of secretions. Plan dated 11/20/2016 The patient seemed to do relatively well. We'll continue to follow. She has a number of medical problems including but not limited to severe COPD CAD atrial fibrillation large infrarenal abdominal aortic aneurysm spinal stenosis peripheral vascular occlusive disease and protein calorie malnutrition. From a pulmonary standpoint she is doing relatively well. She is recovering from her right hip fracture and repair. The patient will likely be discharged to the half-way. We'll continue to follow. Plan dated 11/21/2016 The patient seemed be doing relatively well. [facility] I tell her family members to ask the primary doctor there to consult me so that I continue to see Dora at the half-way. She will need a lot of intensive rehab. Currently her COPD is relatively stable. We'll continue to follow closely. When she gets out of the half-way, we will make sure she follows with Dr. Hastings in my office. Time with Patient: Less than 30
== END 2016-11-21 16:38 | DRG 469 ==
LOC: EC 22:56 → 3SUR 11-12 01:12 → 6SEL 11-16 06:35
PROVIDERS: ADMIT Hospitalist; ATTEND Hospitalist
PROC: 30233K1 Transfusion of Nonautologous Frozen Plasma into Peripheral Vein, Percutaneous Approach (ICD-10-PCS; 2016-11-13)
PROC: 0SRR0J9 Replacement of Right Hip Joint, Femoral Surface with Synthetic Substitute, Cemented, Open Approach (ICD-10-PCS; principal; 2016-11-13 12:00)
PROC: 30233N1 Transfusion of Nonautologous Red Blood Cells into Peripheral Vein, Percutaneous Approach (ICD-10-PCS; 2016-11-19)
DX: M80.851A Other osteoporosis with current pathological fracture, right femur, initial encounter for fracture (principal); E43 Unspecified severe protein-calorie malnutrition; I50.33 Acute on chronic diastolic (congestive) heart failure; J96.11 Chronic respiratory failure with hypoxia; I27.2 Other secondary pulmonary hypertension; D69.6 Thrombocytopenia, unspecified; J44.0 Chronic obstructive pulmonary disease with (acute) lower respiratory infection; R64 Cachexia; J44.1 Chronic obstructive pulmonary disease with (acute) exacerbation; Z68.1 Body mass index [BMI] 19.9 or less, adult; I11.0 Hypertensive heart disease with heart failure; Z99.81 Dependence on supplemental oxygen; I48.0 Paroxysmal atrial fibrillation; I48.2 Chronic atrial fibrillation; I25.10 Atherosclerotic heart disease of native coronary artery without angina pectoris; I25.2 Old myocardial infarction; I71.4 Abdominal aortic aneurysm, without rupture; I65.23 Occlusion and stenosis of bilateral carotid arteries; E78.5 Hyperlipidemia, unspecified; I73.9 Peripheral vascular disease, unspecified; M48.00 Spinal stenosis, site unspecified; H57.02 Anisocoria; J20.9 Acute bronchitis, unspecified; R26.2 Difficulty in walking, not elsewhere classified; R74.8 Abnormal levels of other serum enzymes; I35.0 Nonrheumatic aortic (valve) stenosis; I36.1 Nonrheumatic tricuspid (valve) insufficiency; R41.0 Disorientation, unspecified; R79.1 Abnormal coagulation profile; M21.70 Unequal limb length (acquired), unspecified site; K29.70 Gastritis, unspecified, without bleeding; F41.0 Panic disorder [episodic paroxysmal anxiety]; R53.1 Weakness; Z87.19 Personal history of other diseases of the digestive system; Z87.01 Personal history of pneumonia (recurrent); Z86.79 Personal history of other diseases of the circulatory system; Z79.01 Long term (current) use of anticoagulants; Z79.899 Other long term (current) drug therapy; Z82.49 Family history of ischemic heart disease and other diseases of the circulatory system; Z51.81 Encounter for therapeutic drug level monitoring; Z79.51 Long term (current) use of inhaled steroids; Z71.3 Dietary counseling and surveillance; Z87.42 Personal history of other diseases of the female genital tract; Z87.891 Personal history of nicotine dependence; Z90.721 Acquired absence of ovaries, unilateral; W01.0XXA Fall on same level from slipping, tripping and stumbling without subsequent striking against object, initial encounter; Y92.009 Unspecified place in unspecified non-institutional (private) residence as the place of occurrence of the external cause
CPT/HCPCS: 36415; 51702; 70450; 70496; 70498; 71010; 73501; 73502; 80048; 80053; 80061; 81001; 82550; 83090; 83735; 84484; 85025; 85027; 85379; 85610; 85730; 86850; 86900; 86901; 86920; 87086; 88305; 88311; 93005; 93306; 93880; 94640; 94660; 94760; 95816; 96361; 96374; 99284

== ENCOUNTER 2017-01-07 19:11 | Inpatient (IN) | payer MEDICARE, BC ==
[2017-01-07] MEDS ORDERED: PANTOPRAZOLE 40 MG/10 ML VIAL IVP STA (19:22)
[2017-01-07] MEDS ORDERED: SODIUM CHLORIDE 0.9% 500 ML IV STA (19:22)
[2017-01-07] MEDS ORDERED: RX INFO: IV CONTRAST WAS GIVEN 1 EACH MISC MISCELLANE PRN (19:22)
[2017-01-07] MEDS ORDERED: MORPHINE SULFATE 10 MG/ML SYRINGE IV STA (19:22)
[2017-01-07] MEDS ORDERED: ONDANSETRON ODT 8 MG TAB.RAPDIS PO STA (19:22)
[2017-01-07] MEDS ORDERED: SODIUM CHLORIDE 0.9% 1,000 ML IV STA ×2 (19:22)
[2017-01-07] MEDS ORDERED: MORPHINE SULFATE 2 MG/ML SYRINGE IV STA (19:24)
[2017-01-07 20:02] LABS: Basophils % (A) 0 %; CHCM 30.9; Eosinophils # (A) 0.1 k/uL (0-0.7); Eosinophils % (A) 1 %; HCT 36.1 % (34.0-46.0); HDW 2.53; HGB 11.4 gm/dL (11.4-16.0); Hypochromasia Slight; Luc # (Auto) 0.23; Luc % (Auto) 3; Lymphocytes # (A) 1.1 k/uL (1.0-4.8); Lymphocytes % (A) 12 %; MCH 30.8 pg (25.0-35.0); MCHC 31.6 g/dL (31.0-37.0); MCV 97.5 fL (80.0-100.0); Monocytes # (A) 0.7 k/uL (0-1.0); Monocytes % (A) 7 %; Neutrophils # (A) 6.9 k/uL (1.3-7.7); Neutrophils % (A) 77 %; RDW 15.8 % (11.5-15.5); WBC (Perox) 9.68
[2017-01-07 20:12] LABS: INR 2.5 (<1.2); Prothrombin Time 23.6 sec (9.0-12.0)
--- NOTE | 2017-01-07 20:24 | ED ---
General Adult HPI - General Chief complaint: Abdominal Pain Stated complaint: ABD pain Time Seen by Provider: 01/07/17 19:13 Source: EMS, RN notes reviewed, old records reviewed Mode of arrival: EMS Limitations: no limitations - History of Present Illness Initial comments: This is a 81-year-old female to the ER for evaluation today. This patient presents for evaluation regarding her bowel pain and epigastric bowel pain. Patient has history of palpitations. Patient had sent in from the care facility for evaluation. Patient outpatient lab testing done showing pancreatitis. Patient states she has severe bowel pain with nausea no vomiting. No recent diarrhea. Patient denies fevers. Patient states she has had sore pain before. It is severe and sharp, no shortness of breath - Related Data Home Medications Medication Instructions Recorded Confirmed Acetaminophen Tab [Tylenol] 650 mg PO Q4H PRN 01/05/14 01/07/17 Amiodarone [Cordarone] 200 mg PO DAILY 01/05/14 01/07/17 Atorvastatin [Lipitor] 10 mg PO HS 01/05/14 01/07/17 Cholecalciferol [Vitamin D3] 400 unit PO DAILY 01/05/14 01/07/17 Multivitamins, Thera [Multivitamin 1 tab PO DAILY 01/05/14 01/07/17 (formulary)] Omeprazole [PriLOSEC] 40 mg PO AC-BRKFST 01/05/14 01/07/17 Famotidine [Pepcid] 20 mg PO BID 11/06/15 01/07/17 Latanoprost Ophth [Xalatan 0.005%] 1 drops BOTH EYES HS 11/12/16 01/07/17 Fluticasone/Vilanterol [Breo 1 puff INHALATION RT-DAILY 01/07/17 01/07/17 Ellipta 100-25 Mcg Inhaler] Furosemide [Lasix] 40 mg PO DAILY 01/07/17 01/07/17 Sennosides-Docusate Sodium 2 tab PO HS 01/07/17 01/07/17 [Senokot-S] Simethicone [Gas-X] 125 mg PO HS PRN 01/07/17 01/07/17 Venelex Ointment 1 applic TOPICAL DAILY PRN 01/07/17 01/07/17 Venelex Ointment 1 applic TOPICAL HS 01/07/17 01/07/17 Warfarin [Coumadin] 2 mg PO DAILY 01/07/17 01/07/17 Previous Rx's Medication Instructions Recorded Metoprolol Tartrate [Lopressor] 25 mg PO BID #60 tab 01/10/14 Aspirin 81 mg PO DAILY 11/20/16 HYDROcodone/APAP 5-325MG [Engadine 1 tab PO Q6HR PRN #20 tab 11/20/16 5-325] Ipratropium-Albuterol Nebulize 3 ml INHALATION RT-Q2H PRN neb 11/20/16 [Duoneb 0.5 mg-3 mg/3 ml Soln] Ipratropium-Albuterol Nebulize 3 ml INHALATION RT-QID neb 11/20/16 [Duoneb 0.5 mg-3 mg/3 ml Soln] traMADol HCl [Ultram] 50 mg PO Q6H PRN #20 tab 11/20/16 Allergies Allergy/AdvReac Type Severity Reaction Status Date / Time No Known Allergies Allergy Verified 01/07/17 19:38 Review of Systems ROS Statement: Those systems with pertinent positive or pertinent negative responses have been documented in the HPI. ROS Other: All systems not noted in ROS Statement are negative. Past Medical History Past Medical History: Atrial Fibrillation, Heart Failure, COPD, GI Bleed, Hypertension, Liver Disease, Pneumonia, Respiratory Disorder Additional Past Medical History / Comment(s): Home O2 at 2L/NC most of the time , bilateral leg blockages and an aortic aneurysm being monitored by dr. pena. 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 Vertigo. History of Any Multi-Drug Resistant Organisms: None Reported Additional Past Surgical History / Comment(s): STOMACH REPAIR FROM BLEEDING IN 2007. COLONOSCOPY IN 2007 WHERE HER BOWEL WAS NICKED AND SHE WENT FOR SURGICAL REPAIR. ONE OVARY REMOVED DUE TO CYST YEARS AGO. Bilateral cataract surgery Hip surgery 2017 Past Anesthesia/Blood Transfusion Reactions: No Reported Reaction Additional Past Anesthesia/Blood Transfusion Reaction / Comment(s): PT RECIEVED BLOOD 45YRS AGO AFTER MISCARRIAGE-NO REACTION. Past Psychological History: No Psychological Hx Reported Smoking Status: Former smoker Past Alcohol Use History: None Reported Past Drug Use History: None Reported - Past Family History Father Family Medical History: Coronary Artery Disease (CAD), Myocardial Infarction ([place] ) Additional Family Medical History / Comment(s): FATHER AT AGE 66 OF [place] Mother Family Medical History: No Reported History Additional Family Medical History / Comment(s): MOTHER AT AGE 82 OF "OLD AGE" General Exam Limitations: no limitations General appearance: alert, in no apparent distress, anxious, cachectic Head exam: Present: atraumatic, normocephalic, normal inspection Eye exam: Present: normal appearance, PERRL, EOMI. Absent: scleral icterus, conjunctival injection, periorbital swelling ENT exam: Present: normal exam, mucous membranes moist Neck exam: Present: normal inspection. Absent: tenderness, meningismus, lymphadenopathy Respiratory exam: Present: normal lung sounds bilaterally. Absent: respiratory distress, wheezes, rales, rhonchi, stridor Cardiovascular Exam: Present: regular rate, normal rhythm, normal heart sounds. Absent: systolic murmur, diastolic murmur, rubs, gallop, clicks GI/Abdominal exam: Present: soft, normal bowel sounds. Absent: distended, tenderness, guarding, rebound, rigid Extremities exam: Present: normal inspection, full ROM, normal capillary refill. Absent: tenderness, pedal edema, joint swelling, calf tenderness Back exam: Present: normal inspection Neurological exam: Present: alert, oriented X3, CN II-XII intact Psychiatric exam: Present: normal affect, normal mood Skin exam: Present: warm, dry, intact, normal color. Absent: rash Course Vital Signs 01/07/17 01/07/17 01/07/17 19:20 20:46 21:05 Temperature 98.3 F Pulse Rate 66 71 70 Respiratory 20 18 18 Rate Blood Pressure 233/95 210/92 154/67 O2 Sat by Pulse 95 96 98 Oximetry - Reevaluation(s) Reevaluation #1: 01/07/17 20:23 Patient feeling much better with blood pressure and pain control Reevaluation #2: 01/07/17 20:[address] Salinas, aneurysms is stable from prior imaging Reevaluation #3: 01/07/17 20:55 blood pressure is improved and pain is controlled Medical Decision Making - Medical Decision Making 81 female the ER with abdominal pain abdominal pain elevated blood pressure. Patient's blood pressure control and the ER with pain control. Patient okay to be discharged home, lipase is normal here ultrasound shows aneurysm is the exact same compared to prior studies. Patient can be discharged home - Lab Data Result diagrams: 01/07/17 19:41 01/07/17 19:41 Lab Results 01/07/17 01/07/17 01/07/17 Range/Units 19:41 19:41 19:41 WBC 9.0 (3.8-10.6) k/uL RBC 3.70 L (3.80-5.40) m/uL Hgb 11.4 (11.4-16.0) gm/dL Hct 36.1 (34.0-46.0) % MCV 97.5 (80.0-100.0) fL MCH 30.8 (25.0-35.0) pg MCHC 31.6 (31.0-37.0) g/dL RDW 15.8 H (11.5-15.5) % Plt Count 266 (150-450) k/uL Neutrophils % 77 % Lymphocytes % 12 % Monocytes % 7 % Eosinophils % 1 % Basophils % 0 % Neutrophils # 6.9 (1.3-7.7) k/uL Lymphocytes # 1.1 (1.0-4.8) k/uL Monocytes # 0.7 (0-1.0) k/uL Eosinophils # 0.1 (0-0.7) k/uL Basophils # 0.0 (0-0.2) k/uL Hypochromasia Slight PT (9.0-12.0) sec INR (<1.2) APTT (22.0-30.0) sec Sodium 142 (137-145) mmol/L Potassium 4.8 (3.5-5.1) mmol/L Chloride 98 (98-107) mmol/L Carbon Dioxide 38 H (22-30) mmol/L Anion Gap 6 mmol/L BUN 37 H (7-17) mg/dL Creatinine 0.98 (0.52-1.04) mg/dL Est GFR (MDRD) Af Amer >60 (>60 ml/min/1.73 sqM) Est GFR (MDRD) Non-Af 54 (>60 ml/min/1.73 sqM) Glucose 92 (74-99) mg/dL Plasma Lactic Acid Antonio (0.7-2.0) mmol/L Calcium 9.8 (8.4-10.2) mg/dL Total Bilirubin 0.4 (0.2-1.3) mg/dL AST 39 H (14-36) U/L ALT 29 (9-52) U/L Alkaline Phosphatase 101 (38-126) U/L Total Creatine Kinase 33 (30-135) U/L CK-MB (CK-2) 1.9 (0.0-2.4) ng/mL CK-MB (CK-2) Rel Index 5.8 Total Protein 7.9 (6.3-8.2) g/dL Albumin 4.3 (3.5-5.0) g/dL Amylase 188 H (30-110) U/L Lipase 243 (23-300) U/L Urine Color Urine Appearance (Clear) Urine pH (5.0-8.0) Ur Specific [place] (1.001-1.035) Urine Protein (Negative) Urine Glucose (UA) (Negative) Urine Ketones (Negative) Urine Blood (Negative) Urine Nitrite (Negative) Urine Bilirubin (Negative) Urine Urobilinogen (<2.0) mg/dL Ur Leukocyte Esterase (Negative) Urine RBC (0-5) /hpf Urine WBC (0-5) /hpf Ur Squamous Epith Cells (0-4) /hpf Urine Bacteria (None) /hpf Hyaline Casts (0-2) /lpf Urine Mucus (None) /hpf 01/07/17 01/07/17 01/07/17 Range/Units 19:41 19:41 20:32 WBC (3.8-10.6) k/uL RBC (3.80-5.40) m/uL Hgb (11.4-16.0) gm/dL Hct (34.0-46.0) % MCV (80.0-100.0) fL MCH (25.0-35.0) pg MCHC (31.0-37.0) g/dL RDW (11.5-15.5) % Plt Count (150-450) k/uL Neutrophils % % Lymphocytes % % Monocytes % % Eosinophils % % Basophils % % Neutrophils # (1.3-7.7) k/uL Lymphocytes # (1.0-4.8) k/uL Monocytes # (0-1.0) k/uL Eosinophils # (0-0.7) k/uL Basophils # (0-0.2) k/uL Hypochromasia PT 23.6 H (9.0-12.0) sec INR 2.5 H (<1.2) APTT 27.0 (22.0-30.0) sec Sodium (137-145) mmol/L Potassium (3.5-5.1) mmol/L Chloride (98-107) mmol/L Carbon Dioxide (22-30) mmol/L Anion Gap mmol/L BUN (7-17) mg/dL Creatinine (0.52-1.04) mg/dL Est GFR (MDRD) Af Amer (>60 ml/min/1.73 sqM) Est GFR (MDRD) Non-Af (>60 ml/min/1.73 sqM) Glucose (74-99) mg/dL Plasma Lactic Acid Antonio 1.4 (0.7-2.0) mmol/L Calcium (8.4-10.2) mg/dL Total Bilirubin (0.2-1.3) mg/dL AST (14-36) U/L ALT (9-52) U/L Alkaline Phosphatase (38-126) U/L Total Creatine Kinase (30-135) U/L CK-MB (CK-2) (0.0-2.4) ng/mL CK-MB (CK-2) Rel Index Total Protein (6.3-8.2) g/dL Albumin (3.5-5.0) g/dL Amylase (30-110) U/L Lipase (23-300) U/L Urine Color Yellow Urine Appearance Cloudy H (Clear) Urine pH 7.5 (5.0-8.0) Ur Specific [place] 1.028 (1.001-1.035) Urine Protein 1+ H (Negative) Urine Glucose (UA) Negative (Negative) Urine Ketones Negative (Negative) Urine Blood Negative (Negative) Urine Nitrite Negative (Negative) Urine Bilirubin Negative (Negative) Urine Urobilinogen <2.0 (<2.0) mg/dL Ur Leukocyte Esterase Moderate H (Negative) Urine RBC 3 (0-5) /hpf Urine WBC 22 H (0-5) /hpf Ur Squamous Epith Cells 8 H (0-4) /hpf Urine Bacteria Few H (None) /hpf Hyaline Casts 1 (0-2) /lpf Urine Mucus Rare H (None) /hpf - Radiology Data Radiology results: report reviewed (CT of abdomen and pelvis shows AAA, which is stable from prior), image reviewed Disposition Clinical Impression: Abdominal pain, History of abdominal aortic aneurysm (AAA), Hypertensive urgency Disposition: ADMITTED IP TO THIS HOSP Instructions: Abdominal Pain (ED) Referrals: Magui Kim MD [Primary Care Provider] - 1-2 days
[2017-01-07 20:27] LABS: ALT 29 U/L (9-52); AST 39 U/L (14-36); Alkaline Phosphatase 101 U/L (38-126); Amylase 188 U/L (30-110); Anion Gap 6 mmol/L; Blood Urea Nitrogen 37 mg/dL (7-17); Calcium 9.8 mg/dL (8.4-10.2); Carbon Dioxide 38 mmol/L (22-30); Chloride 98 mmol/L (98-107); Glucose 92 mg/dL (74-99); Non-African American GFR(MDRD) 54 (>60 ml/min/1.73 sqM); Potassium 4.8 mmol/L (3.5-5.1); Sodium 142 mmol/L (137-145); Total Bilirubin 0.4 mg/dL (0.2-1.3); Total Protein 7.9 g/dL (6.3-8.2)
[2017-01-07 20:33] LABS: Creatine Kinase MB 1.9 ng/mL (0.0-2.4)
--- NOTE | 2017-01-07 20:33 | CT ---
EXAMINATION TYPE: CT abdomen pelvis w con DATE OF EXAM: 01/07/2017 COMPARISON: NONE HISTORY: Mid abdominal pain. CT DLP: 185.60 mGycm Automated exposure control for dose reduction was used. TECHNIQUE: Helical acquisition of images was performed from the lung bases through the pelvis. CONTRAST: Performed without Oral Contrast and with IV Contrast, patient injected with 80 mL of Visipaque 320. FINDINGS: Heart is enlarged. Thoracic and abdominal aorta is atheromatous. There is a large aneurysm of the low er abdominal aorta with thrombus. Aneurysm measures up to 5 cm. There is reticular infiltrate at the lung bases and more on the right side. There is no pleural effusion. There is a 5 mm calcification in the inferior liver near the gallbladder. Bile ducts are not dilated. . Gallbladder appears normal. The spleen shows small calcified granulomata. There is no sign of a pancreatic mass. There is no retroperitoneal adenopathy. There is cortical thinning of the left kidney compared to the right. There is no hydronephrosis. There is a 1 cm cortical cyst on the posterior right kidney. Ther e is no evidence of ascites. Urographic bladder distends smoothly. There is metal artifact from right hip surgery. There is retained fecal material in the colon. There is 25% compression deformity of T12 vertebra. Th ere is a 4 x 3 cm area of hypodensity in the posterior lateral spleen. IMPRESSION: THERE IS A FUSIFORM LOWER THORACIC AND ABDOMINAL AORTIC ANEURYSM THAT MEASURES UP TO 5 CM. THERE IS T HROMBUS THAT MEASURES UP TO 2 CM. HYPODENSE AREA WITHOUT EVIDENCE OF MASS EFFECT IN THE POSTERIOR LATERAL SPLEEN COULD RELATE TO AN INF ARCT. THERE IS CORTICAL ATROPHY IN THE LOWER POLE LEFT KIDNEY THAT COULD RELATE TO ISCHEMIA. CARDIOMEGALY. RETICULAR INFILTRATE AT THE RIGHT LUNG BASES PROBABLY DUE TO SCARRING. OSTEOPOROTIC TYPE COMPRESSION FRACTURE OF T12. CONSTIPATION.
[2017-01-07 20:42] LABS: Appearance,Urine Cloudy (Clear); Bacteria,Urine Few /hpf; Bilirubin,Urine Negative (Negative); Glucose,Urine (UA) Negative (Negative); Ketones,Urine Negative (Negative); Leukocyte Esterase,Urine Moderate (Negative); Mucus,Urine Rare /hpf; Nitrite,Urine Negative (Negative); PH, Urine 7.5 (5.0-8.0); Particle Count 3433; Protein,Urine 1+ (Negative); RBC,Urine 3 /hpf (0-5); Specific Gravity,Urine 1.028 (1.001-1.035); Squamous Epithelial Cell,Urine 8 /hpf (0-4); UA Billing (MACRO vs. MICRO) MICRO; Urobilinogen,Urine <2.0 mg/dL (<2.0); WBC,Urine 22 /hpf (0-5)
[2017-01-07] MEDS ORDERED: LABETALOL 5 MG/ML VIAL MDV IVP STA (20:47)
[2017-01-07] MEDS ORDERED: hydrALAZINE HCL 20 MG/ML 1 ML VIAL IVP STA (20:47)
[2017-01-07] MEDS ORDERED: MORPHINE SULFATE 10 MG/ML SYRINGE IVP PRN (21:15)
--- NOTE | 2017-01-08 09:46 | P.CONS ---
History of Present Illness - Reason for Consult Consult date: 01/08/17 abdominal pain Requesting physician: Gavin Del Valle - History of Present Illness 81-year-old female recent hip fracture 3 weeks ago admitted with persistent abdominal pain 3 weeks. She has a past medical history of chronic atrial fibrillation with Coumadin monitoring, heart failure, COPD O2 dependent, perforated peptic ulcer disease 10 years ago as well as perforated colon from colonoscopy, hypertension, and AAA. Abdominal pain is described as a squeezing sensation around her bilateral waist started 3 weeks ago subsequently resulted in a fall and she broke her hip requiring surgery. Pain has not improved. No other symptoms associated with this pain such as fever chills hematemesis hematochezia melena diarrhea constipation nausea or vomiting. She has been tolerating a diet. Pain is nonspecific nothing exacerbates or improves it. Last colonoscopy about 10 years ago resulted in perforation/surgery. EGD several years ago. White count 9. Hemoglobin 11.4. INR 2.5. LFTs within normal limits. Amylase 188. Lipase 243. CT abdomen and pelvis reported lateral posterior lobe splenic infarct. AAA about 5 cm the thrombus measuring up to 2 cm. Review of Systems Constitutional: Denies fever, chills, sweats, weight gain, or loss. HEENT: Negative for migraines, blurred vision or loss, earaches, drainage, tinnitus, oral mucosal lesions, dysphagia, or odynophagia. CARDIAC: H of fibrillation. CHF. Hypertension. Negative for chest pain, arrhythmias, or palpitation. RESPIRATORY: COPD. Negative for shortness of breath, hemoptysis, cough, or sputum production. GI: See HPI for pertinent findings. : Negative for hematuria, urgency, frequency, polyuria, or dysuria. GYNc: Denies possibility of . Negative vaginal discharge. MUSCULOSKELETAL: Negative for muscle aches, swelling, arthritis, and arthralgias. NEUROLOGIC: Vertigo. Negative for stroke or TIA. ENDOCRINE: Negative for thyroid problems. SKIN: Negative for rash or itching. PSYCHIATRIC: Negative history for depression and anxiety Past Medical History Past Medical History: Atrial Fibrillation, Heart Failure, COPD, GI Bleed, Hypertension, Liver Disease, Pneumonia, Respiratory Disorder Additional Past Medical History / Comment(s): Home O2 at 2L/NC most of the time , bilateral leg blockages and an aortic aneurysm being monitored by dr. pena. 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 Vertigo. History of Any Multi-Drug Resistant Organisms: None Reported Additional Past Surgical History / Comment(s): STOMACH REPAIR FROM BLEEDING IN 2007. COLONOSCOPY IN 2007 WHERE HER BOWEL WAS NICKED AND SHE WENT FOR SURGICAL REPAIR. ONE OVARY REMOVED DUE TO CYST YEARS AGO. Bilateral cataract surgery Hip surgery 2017 Past Anesthesia/Blood Transfusion Reactions: No Reported Reaction Additional Past Anesthesia/Blood Transfusion Reaction / Comm: PT RECIEVED BLOOD 45YRS AGO AFTER MISCARRIAGE-NO REACTION. Past Psychological History: No Psychological Hx Reported Additional Psychological History / Comment(s): PT LIVES ALONE BUT SON AND GIRLFRIEND LIVE NEXT DOOR AND HELP HER WITH ANYTHING SHE NEEDS. NORMALLY SHE IS UP AND ABOUT ALL THE TIME. USES A WALKER AT TIMES. Has home O2/nebulizer. Pt has not driven since February 2016, she quit driving in case she would have a syncopal episode-[facility] [employer]. Smoking Status: Former smoker Past Alcohol Use History: None Reported Past Drug Use History: None Reported - Past Family History Father Family Medical History: Coronary Artery Disease (CAD), Myocardial Infarction ([place] ) Additional Family Medical History / Comment(s): FATHER AT AGE 66 OF [place] Mother Family Medical History: No Reported History Additional Family Medical History / Comment(s): MOTHER AT AGE 82 OF "OLD AGE" Medications and Allergies Home Medications Medication Instructions Recorded Confirmed Type Acetaminophen Tab [Tylenol] 650 mg PO Q4H PRN 01/05/14 01/07/17 History Amiodarone [Cordarone] 200 mg PO DAILY 01/05/14 01/07/17 History Atorvastatin [Lipitor] 10 mg PO HS 01/05/14 01/07/17 History Cholecalciferol [Vitamin D3] 400 unit PO DAILY 01/05/14 01/07/17 History Multivitamins, Thera [Multivitamin 1 tab PO DAILY 01/05/14 01/07/17 History (formulary)] Omeprazole [PriLOSEC] 40 mg PO AC-BRKFST 01/05/14 01/07/17 History Metoprolol Tartrate [Lopressor] 25 mg PO BID #60 tab 01/10/14 01/07/17 Rx Famotidine [Pepcid] 20 mg PO BID 11/06/15 01/07/17 History Latanoprost Ophth [Xalatan 0.005%] 1 drops BOTH EYES HS 11/12/16 01/07/17 History Aspirin 81 mg PO DAILY 11/20/16 01/07/17 Rx HYDROcodone/APAP 5-325MG [[place] 1 tab PO Q6HR PRN #20 tab 11/20/16 01/07/17 Rx 5-325] Ipratropium-Albuterol Nebulize 3 ml INHALATION RT-Q2H PRN neb 11/20/16 Rx [Duoneb 0.5 mg-3 mg/3 ml Soln] Ipratropium-Albuterol Nebulize 3 ml INHALATION RT-QID neb 11/20/16 01/07/17 Rx [Duoneb 0.5 mg-3 mg/3 ml Soln] traMADol HCl [Ultram] 50 mg PO Q6H PRN #20 tab 11/20/16 01/07/17 Rx Fluticasone/Vilanterol [Breo 1 puff INHALATION RT-DAILY 01/07/17 01/07/17 History Ellipta 100-25 Mcg Inhaler] Furosemide [Lasix] 40 mg PO DAILY 01/07/17 01/07/17 History Sennosides-Docusate Sodium 2 tab PO HS 01/07/17 01/07/17 History [Senokot-S] Simethicone [Gas-X] 125 mg PO HS PRN 01/07/17 01/07/17 History Venelex Ointment 1 applic TOPICAL DAILY PRN 01/07/17 01/07/17 History Venelex Ointment 1 applic TOPICAL HS 01/07/17 01/07/17 History Warfarin [Coumadin] 2 mg PO DAILY 01/07/17 01/07/17 History Allergies Allergy/AdvReac Type Severity Reaction Status Date / Time No Known Allergies Allergy Verified 01/07/17 19:38 Physical Exam Vitals: Vital Signs Temp Pulse Pulse Resp BP BP Pulse Ox 01/08/17 07:00 98.7 F 97 20 129/58 96 01/07/17 23:00 97.3 F L 74 20 156/82 91 L 01/07/17 21:46 70 18 150/65 98 01/07/17 21:05 70 18 154/67 98 01/07/17 20:46 71 18 210/92 96 01/07/17 19:20 98.3 F 66 20 233/95 95 Intake and Output 01/07/17 01/08/17 01/08/17 22:59 06:59 14:59 Intake Total 1500 Balance 1500 Intake: Amount of Fluid Infused ( 1500 ml) Other: Voiding Method Bedpan Bedpan # Voids 1 Weight 73.41 kg General appearance: The patient is alert, oriented, in no acute distress. HET: Head is normocephalic and atraumatic. Pupils are equal and reactive. Oropharynx is clear without lesions. Neck: Supple without lymphadenopathy. Trachea midline. Heart: S1 S2. Regular rate and rhythm. Lungs: No crackles or wheezes are heard. Abdomen: Soft, bilateral lower abdominal mild tenderness nondistended with bowel sounds. No peritoneal signs. No palpable organomegaly or masses. Extremities: Rate hip incision without erythema or drainage healing well. Normal skin color and turgor. No cyanosis, rash, ulceration, clubbing, or edema. Radial and pedal pulses are 2/4 bilaterally. Neurological: No focal deficits. Strength and sensation are grossly intact. Results CBC & Chem 7: 01/07/17 19:41 01/07/17 19:41 Labs: Abnormal Lab Results - Last 24 Hours (Table) 01/07/17 01/07/17 01/07/17 Range/Units 19:41 19:41 19:41 RBC 3.70 L (3.80-5.40) m/uL RDW 15.8 H (11.5-15.5) % PT 23.6 H (9.0-12.0) sec INR 2.5 H (<1.2) Carbon Dioxide 38 H (22-30) mmol/L BUN 37 H (7-17) mg/dL AST 39 H (14-36) U/L Amylase 188 H (30-110) U/L Urine Appearance (Clear) Urine Protein (Negative) Ur Leukocyte Esterase (Negative) Urine WBC (0-5) /hpf Ur Squamous Epith Cells (0-4) /hpf Urine Bacteria (None) /hpf Urine Mucus (None) /hpf 01/07/17 Range/Units 20:32 RBC (3.80-5.40) m/uL RDW (11.5-15.5) % PT (9.0-12.0) sec INR (<1.2) Carbon Dioxide (22-30) mmol/L BUN (7-17) mg/dL AST (14-36) U/L Amylase (30-110) U/L Urine Appearance Cloudy H (Clear) Urine Protein 1+ H (Negative) Ur Leukocyte Esterase Moderate H (Negative) Urine WBC 22 H (0-5) /hpf Ur Squamous Epith Cells 8 H (0-4) /hpf Urine Bacteria Few H (None) /hpf Urine Mucus Rare H (None) /hpf Microbiology - Last 24 Hours (Table) 01/07/17 20:32 Urine Culture - Preliminary Urine,Voided Assessment and Plan (1) Abdominal pain Narrative/Plan: etiology unclear possible vascular pathology with elevated amylase and splenic infarct on CT imaging. Current Visit: Yes Status: Acute Code(s): R10.9 - UNSPECIFIED ABDOMINAL PAIN SNOMED Code(s): 53873704 (2) Chronic atrial fibrillation Current Visit: Yes Status: Chronic Code(s): I48.2 - CHRONIC ATRIAL FIBRILLATION SNOMED Code(s): 824700062 (3) Hip fracture, right Current Visit: Yes Status: Resolved Code(s): S72.001A - FRACTURE OF UNSP PART OF NECK OF RIGHT FEMUR, INIT SNOMED Code(s): 594945104 (4) Warfarin-induced coagulopathy Current Visit: Yes Status: Chronic Code(s): D68.9 - COAGULATION DEFECT, UNSPECIFIED; T45.515A - ADVERSE EFFECT OF ANTICOAGULANTS, INITIAL ENCOUNTER SNOMED Code(s): 01117868 (5) AAA (abdominal aortic aneurysm) Current Visit: Yes Status: Chronic Code(s): I71.4 - ABDOMINAL AORTIC ANEURYSM, WITHOUT RUPTURE SNOMED Code(s): 888320399 Plan: 1. Lactic acid. Repeat amylase. BC. 2. Recommend general surgical consult for abdominal pain evaluation/splenic infarct. 3. Supportive measures. Endoscopy not planned at this time. 4. Will follow with you. Thank you for this kind referral and the opportunity to participate in the care of your patient. This consultation was discussed with Dr. Viera. The impression and plan of care have been directed as dictated.
[2017-01-08 09:54] LABS: Anisocytosis Slight; Basophils % (A) 0 %; CH 29.8; CHCM 29.6; Eosinophils # (A) 0.1 k/uL (0-0.7); Eosinophils % (A) 1 %; HCT 35.2 % (34.0-46.0); HDW 2.53; HGB 10.7 gm/dL (11.4-16.0); Hypochromasia Marked; Luc # (Auto) 0.25; Luc % (Auto) 3; Lymphocytes # (A) 1.1 k/uL (1.0-4.8); Lymphocytes % (A) 12 %; MCH 30.7 pg (25.0-35.0); MCHC 30.4 g/dL (31.0-37.0); MCV 100.9 fL (80.0-100.0); Macrocytosis Slight; Mean Platelet Volume 9.3; Monocytes # (A) 0.7 k/uL (0-1.0); Monocytes % (A) 8 %; Neutrophils # (A) 6.6 k/uL (1.3-7.7); Neutrophils % (A) 76 %; RBC 3.48 m/uL (3.80-5.40); RDW 16.1 % (11.5-15.5); WBC 8.7 k/uL (3.8-10.6); WBC (Perox) 9.07
[2017-01-08 11:27] VITALS: BMI 15.3
[2017-01-08] MEDS ORDERED: IPRATROPIUM-ALBUTEROL 3 ML NEB INHALATION PRN (12:51)
[2017-01-08] MEDS ORDERED: VENELEX TOPICAL PRN (12:51)
[2017-01-08] MEDS ORDERED: oxyCODONE-APAP 7.5-325MG 1 EACH TAB PO PRN (12:51)
[2017-01-08] MEDS ORDERED: ACETAMINOPHEN TAB 325 MG TAB PO PRN (12:51)
[2017-01-08] MEDS ORDERED: traMADol 50 MG TAB PO PRN (12:51)
[2017-01-08] MEDS ORDERED: SIMETHICONE 80 MG CHEWABLE PO PRN (12:51)
[2017-01-08] MEDS: METOPROLOL TARTRATE 25 MG TAB PO SCH ×2 (14:03→21:13)
[2017-01-08] MEDS: IPRATROPIUM-ALBUTEROL 3 ML NEB INHALATION SCH ×2 (15:30→19:51)
--- NOTE | 2017-01-08 15:57 | P.HPIM ---
History of Present Illness 81-year-old female with recent hip fracture came back with severe and but an abdominal pain she says has been going on for about 2-3 weeks and the patient initially believed to have peptic ulcer disease and patient had a perforated peptic ulcer in the past 10 years ago patient's symptoms didn't improve because of which patient was a admitted to the hospital patient came to the hospital from a subacute rehab facility patient's aseptic 10 x 10 pain has been going on for about a week although patient appears to be comfortable and the patient had a CAT scan of the abdomen which do which did show abdominal aortic aneurysm which is with the thrombosis thrombus and possibility of infarction the spleen area beyond that no other abnormality was appreciated patient was a valid by gastroneurology patient will be started on Protonix does have other multiple medical problems including COPD may be in slight exacerbation is low with expiratory wheezing. in any fever chills dysuria nausea vomiting cough. Since pain is in the abdomen upper abdominal area and across the upper abdomen just below the thorax Review of Systems REVIEW OF SYSTEMS: CONSTITUTIONAL: No fever, no malaise, no fatigue. HEENT: No recent visual problems or hearing problems. Denied any sore throat. CARDIOVASCULAR: No chest pain, orthopnea, PND, no palpitations, no syncope. PULMONARY: No shortness of breath, no cough, no hemoptysis. GASTROINTESTINAL: No diarrhea, no nausea, no vomiting. NEUROLOGICAL: No headaches, no weakness, no numbness. HEMATOLOGICAL: Denies any bleeding or petechiae. GENITOURINARY: Denies any burning micturition, frequency, or urgency. MUSCULOSKELETAL/RHEUMATOLOGICAL: Denies any joint pain, swelling, or any muscle pain. ENDOCRINE: Denies any polyuria or polydipsia. The rest of the 14-point review of systems is negative. Past Medical History Past Medical History: Atrial Fibrillation, Heart Failure, COPD, GI Bleed, Hypertension, Liver Disease, Pneumonia, Respiratory Disorder Additional Past Medical History / Comment(s): Home O2 at 2L/[place] most of the time , bilateral leg blockages and an aortic aneurysm being monitored by dr. pena. 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 Vertigo. History of Any Multi-Drug Resistant Organisms: None Reported Additional Past Surgical History / Comment(s): STOMACH REPAIR FROM BLEEDING IN 2007. COLONOSCOPY IN 2008 WHERE HER BOWEL WAS NICKED AND SHE WENT FOR SURGICAL REPAIR. ONE OVARY REMOVED DUE TO CYST YEARS AGO. Bilateral cataract surgery Hip surgery 2017 Past Anesthesia/Blood Transfusion Reactions: No Reported Reaction Additional Past Anesthesia/Blood Transfusion Reaction / Comment(s): PT RECIEVED BLOOD 45YRS AGO AFTER MISCARRIAGE-NO REACTION. Past Psychological History: No Psychological Hx Reported Additional Psychological History / Comment(s): PT LIVES ALONE BUT SON AND GIRLFRIEND LIVE NEXT DOOR AND HELP HER WITH ANYTHING SHE NEEDS. NORMALLY SHE IS UP AND ABOUT ALL THE TIME. USES A WALKER AT TIMES. Has home O2/nebulizer. Pt has not driven since February 2016, she quit driving in case she would have a syncopal episode-[facility] Smoking Status: Former smoker Past Alcohol Use History: None Reported Past Drug Use History: None Reported - Past Family History Father Family Medical History: Coronary Artery Disease (CAD), Myocardial Infarction ([place] ) Additional Family Medical History / Comment(s): FATHER AT AGE 66 OF [place] Mother Family Medical History: No Reported History Additional Family Medical History / Comment(s): MOTHER AT AGE 82 OF "OLD AGE" Medications and Allergies Home Medications Medication Instructions Recorded Confirmed Type Acetaminophen Tab [Tylenol] 650 mg PO Q4H PRN 01/05/14 01/07/17 History Amiodarone [Cordarone] 200 mg PO DAILY 01/05/14 01/07/17 History Atorvastatin [Lipitor] 10 mg PO HS 01/05/14 01/07/17 History Cholecalciferol [Vitamin D3] 400 unit PO DAILY 01/05/14 01/07/17 History Multivitamins, Thera [Multivitamin 1 tab PO DAILY 01/05/14 01/07/17 History (formulary)] Omeprazole [PriLOSEC] 40 mg PO AC-BRKFST 01/05/14 01/07/17 History Metoprolol Tartrate [Lopressor] 25 mg PO BID #60 tab 01/10/14 01/07/17 Rx Famotidine [Pepcid] 20 mg PO BID 11/06/15 01/07/17 History Latanoprost Ophth [Xalatan 0.005%] 1 drops BOTH EYES HS 11/12/16 01/07/17 History Aspirin 81 mg PO DAILY 11/20/16 01/07/17 Rx HYDROcodone/APAP 5-325MG [[place] 1 tab PO Q6HR PRN #20 tab 11/20/16 01/07/17 Rx 5-325] Ipratropium-Albuterol Nebulize 3 ml INHALATION RT-Q2H PRN neb 11/20/16 Rx [Duoneb 0.5 mg-3 mg/3 ml Soln] Ipratropium-Albuterol Nebulize 3 ml INHALATION RT-QID neb 11/20/16 01/07/17 Rx [Duoneb 0.5 mg-3 mg/3 ml Soln] traMADol HCl [Ultram] 50 mg PO Q6H PRN #20 tab 11/20/16 01/07/17 Rx Fluticasone/Vilanterol [Breo 1 puff INHALATION RT-DAILY 01/07/17 01/07/17 History Ellipta 100-25 Mcg Inhaler] Furosemide [Lasix] 40 mg PO DAILY 01/07/17 01/07/17 History Sennosides-Docusate Sodium 2 tab PO HS 01/07/17 01/07/17 History [Senokot-S] Simethicone [Gas-X] 125 mg PO HS PRN 01/07/17 01/07/17 History Venelex Ointment 1 applic TOPICAL DAILY PRN 01/07/17 01/07/17 History Venelex Ointment 1 applic TOPICAL HS 01/07/17 01/07/17 History Warfarin [Coumadin] 2 mg PO DAILY 01/07/17 01/07/17 History Allergies Allergy/AdvReac Type Severity Reaction Status Date / Time No Known Allergies Allergy Verified 01/07/17 19:38 Physical Exam Vitals: Vital Signs Temp Pulse Pulse Resp BP BP BP 01/08/17 15:42 84 01/08/17 15:31 84 01/08/17 14:55 97.1 F L 81 20 177/69 173/66 01/08/17 07:00 98.7 F 97 20 129/58 01/07/17 23:00 97.3 F L 74 20 156/82 01/07/17 21:46 70 18 150/65 01/07/17 21:05 70 18 154/67 01/07/17 20:46 71 18 210/92 01/07/17 19:20 98.3 F 66 20 233/95 Pulse Ox 01/08/17 15:42 01/08/17 15:31 01/08/17 14:55 94 L 01/08/17 07:00 96 01/07/17 23:00 91 L 01/07/17 21:46 98 01/07/17 21:05 98 01/07/17 20:46 96 01/07/17 19:20 95 Intake and Output 01/08/17 01/08/17 01/08/17 06:59 14:59 22:59 Other: Voiding Method Bedpan # Voids 1 3 Weight 35.7 kg Patient Weight 01/09/17 06:59 Weight 35.7 kg PHYSICAL EXAMINATION: GENERAL: The patient is alert and oriented x3, not in any acute distress. Thin built HEENT: Pupils are round and equally reacting to light. EOMI. No scleral icterus. No conjunctival pallor. Normocephalic, atraumatic. No pharyngeal erythema. No thyromegaly. CARDIOVASCULAR: S1 and S2 present. No murmurs, rubs, or gallops. PULMONARY: Chest is clear to auscultation, no crackles. Recent and expiratory wheezing patient does use 2-3 L of oxygen at home ABDOMEN: Soft, subjective abdominal tenderness and epigastric area and left upper quadrant area MUSCULOSKELETAL: No joint swelling or deformity. EXTREMITIES: No cyanosis, clubbing, or pedal edema. NEUROLOGICAL: Gross neurological examination did not reveal any focal deficits. SKIN: No rashes. Results CBC & Chem 7: 01/08/17 09:30 01/07/17 19:41 Labs: Abnormal Lab Results - Last 24 Hours (Table) 01/07/17 01/07/17 01/07/17 Range/Units 19:41 19:41 19:41 RBC 3.70 L (3.80-5.40) m/uL Hgb (11.4-16.0) gm/dL MCV (80.0-100.0) fL MCHC (31.0-37.0) g/dL RDW 15.8 H (11.5-15.5) % PT 23.6 H (9.0-12.0) sec INR 2.5 H (<1.2) Carbon Dioxide 38 H (22-30) mmol/L BUN 37 H (7-17) mg/dL AST 39 H (14-36) U/L Amylase 188 H (30-110) U/L Urine Appearance (Clear) Urine Protein (Negative) Ur Leukocyte Esterase (Negative) Urine WBC (0-5) /hpf Ur Squamous Epith Cells (0-4) /hpf Urine Bacteria (None) /hpf Urine Mucus (None) /hpf 01/07/17 01/08/17 01/08/17 Range/Units 20:32 09:30 09:30 RBC 3.48 L (3.80-5.40) m/uL Hgb 10.7 L (11.4-16.0) gm/dL MCV 100.9 H (80.0-100.0) fL MCHC 30.4 L (31.0-37.0) g/dL RDW 16.1 H (11.5-15.5) % PT (9.0-12.0) sec INR (<1.2) Carbon Dioxide (22-30) mmol/L BUN (7-17) mg/dL AST (14-36) U/L Amylase 169 H (30-110) U/L Urine Appearance Cloudy H (Clear) Urine Protein 1+ H (Negative) Ur Leukocyte Esterase Moderate H (Negative) Urine WBC 22 H (0-5) /hpf Ur Squamous Epith Cells 8 H (0-4) /hpf Urine Bacteria Few H (None) /hpf Urine Mucus Rare H (None) /hpf Microbiology - Last 24 Hours (Table) 01/07/17 20:32 Urine Culture - Preliminary Urine,Voided Thrombosis Risk Factor Assmnt - Choose All That Apply Any of the Below Risk Factors Present?: Yes Each Factor Represents 1 point: Abnormal pulmonary function (COPD) Other Risk Factors: Yes Each Risk Factor Represents 3 Points: Age 75 years or older Other congenital or acquired thrombophilia - If yes, enter type in comment: No Thrombosis Risk Factor Assessment Total Risk Factor Score: 4 Thrombosis Risk Factor Assessment Level: Moderate Risk Assessment and Plan Plan: #1 abdominal pain unsure of the exact etiology.: Patient is being evaluated for splenic infarct patient will be on Protonix for that is possibly a peptic ulcer disease. #2 history of COPD appears to be in some exacerbation patient was started on inhalational treatments inhalational steroids. #3 coronary artery disease #4 abdominal aortic aneurysm #5 severe protein calorie malnutrition #6 severe pulmonary hypertension #8 chronic atrial fibrillation for which patient and anti-coagulation with Coumadin
[2017-01-08] MEDS: WARFARIN 2 MG TAB PO SCH (17:12)
[2017-01-08] MEDS ORDERED: VENELEX TOPICAL SCH (21:00)
[2017-01-08] MEDS: SENNOSIDES-DOCUSATE SODIUM 1 EACH TAB PO SCH (21:14)
[2017-01-08] MEDS: ATORVASTATIN 10 MG TAB PO SCH (21:14)
[2017-01-08] MEDS: HYDROcodone/APAP 5-325MG 1 EACH TAB PO PRN (21:19)
[2017-01-09] MEDS: SYMBICORT 80-4.5 MCG INHALER INHALATION SCH ×2 (07:32→19:35)
[2017-01-09] MEDS: IPRATROPIUM-ALBUTEROL 3 ML NEB INHALATION SCH ×4 (07:32→19:35)
[2017-01-09] MEDS: ASPIRIN 81 MG PO SCH (07:49)
[2017-01-09] MEDS: FUROSEMIDE 40 MG TAB PO SCH (07:49)
[2017-01-09] MEDS: PANTOPRAZOLE 40 MG/10 ML VIAL IVP SCH (07:49)
[2017-01-09] MEDS: AMIODARONE 200 MG TAB PO SCH (07:49)
[2017-01-09] MEDS: METOPROLOL TARTRATE 25 MG TAB PO SCH ×2 (07:49→20:51)
[2017-01-09 08:14] LABS: INR 2.8 (<1.2); Prothrombin Time 26.8 sec (9.0-12.0)
[2017-01-09 08:17] LABS: CH 29.8; CHCM 29.4; HCT 37.3 % (34.0-46.0); HDW 2.57; HGB 11.2 gm/dL (11.4-16.0); Hypochromasia Marked; MCH 30.8 pg (25.0-35.0); MCHC 30.1 g/dL (31.0-37.0); MCV 102.2 fL (80.0-100.0); Macrocytosis Slight; Mean Platelet Volume 8.7; RBC 3.65 m/uL (3.80-5.40); RDW 15.9 % (11.5-15.5); WBC 11.3 k/uL (3.8-10.6)
[2017-01-09 08:29] LABS: Anion Gap 9 mmol/L; Blood Urea Nitrogen 19 mg/dL (7-17); Calcium 9.5 mg/dL (8.4-10.2); Carbon Dioxide 26 mmol/L (22-30); Chloride 109 mmol/L (98-107); Glucose 94 mg/dL (74-99); Non-African American GFR(MDRD) >60 (>60 ml/min/1.73 sqM); Potassium 4.4 mmol/L (3.5-5.1); Sodium 144 mmol/L (137-145)
--- NOTE | 2017-01-09 13:41 | P.PN ---
Subjective Progress Note Date: 01/09/17 Principal diagnosis: Abdominal pain 81-year-old female admitted with persistent mid abdominal pain 3-4 weeks. Pain feels better today. General surgery consulted. White count 11.3. Hemoglobin 11.2. No bleeding. No diarrhea. Afebrile. CT reported splenic infarct. AAA. Objective - Vital Signs Vital signs: Vital Signs Temp 97.8 F 01/09/17 07:00 Pulse 74 01/09/17 12:01 Resp 16 01/09/17 12:01 BP 176/77 01/09/17 08:46 Pulse Ox 70 L 01/09/17 12:51 Intake & Output 01/08/17 01/09/17 01/09/17 18:59 06:59 18:59 Weight 35.7 kg Other: Voiding Method Bedpan # Voids 2 3 - Exam General appearance: The patient is alert, oriented, in no acute distress. HET: Head is normocephalic and atraumatic. Pupils are equal and reactive. Oropharynx is clear without lesions. Neck: Supple without lymphadenopathy. Trachea midline. Heart: S1 S2. Regular rate and rhythm. Lungs: No crackles or wheezes are heard. Abdomen: Soft, tenderness to the mid abdomen extending around to bilateral flanks, nondistended with bowel sounds. No peritoneal signs. No palpable organomegaly or masses. Extremities: Normal skin color and turgor. No cyanosis, rash, ulceration, clubbing, or edema. Radial and pedal pulses are 2/4 bilaterally. Neurological: No focal deficits. Strength and sensation are grossly intact. - Labs CBC & Chem 7: 01/09/17 07:28 01/09/17 07:28 Labs: Abnormal Lab Results - Last 24 Hours (Table) 01/09/17 01/09/17 01/09/17 Range/Units 07:28 07:28 07:28 WBC 11.3 H (3.8-10.6) k/uL RBC 3.65 L (3.80-5.40) m/uL Hgb 11.2 L (11.4-16.0) gm/dL MCV 102.2 H (80.0-100.0) fL MCHC 30.1 L (31.0-37.0) g/dL RDW 15.9 H (11.5-15.5) % PT 26.8 H (9.0-12.0) sec INR 2.8 H (<1.2) Chloride 109 H (98-107) mmol/L BUN 19 H (7-17) mg/dL Microbiology - Last 24 Hours (Table) 01/07/17 20:32 Urine Culture - Final Urine,Voided Assessment and Plan (1) Abdominal pain Narrative/Plan: etiology unclear possible vascular pathology with elevated amylase and splenic infarct on CT imaging. Current Visit: Yes Status: Acute Code(s): R10.9 - UNSPECIFIED ABDOMINAL PAIN SNOMED Code(s): 28031246 (2) Chronic atrial fibrillation Current Visit: Yes Status: Chronic Code(s): I48.2 - CHRONIC ATRIAL FIBRILLATION SNOMED Code(s): 556954623 (3) Hip fracture, right Current Visit: Yes Status: Resolved Code(s): S72.001A - FRACTURE OF UNSP PART OF NECK OF RIGHT FEMUR, INIT SNOMED Code(s): 437544409 (4) Warfarin-induced coagulopathy Current Visit: Yes Status: Chronic Code(s): D68.9 - COAGULATION DEFECT, UNSPECIFIED; T45.515A - ADVERSE EFFECT OF ANTICOAGULANTS, INITIAL ENCOUNTER SNOMED Code(s): 16644154 (5) AAA (abdominal aortic aneurysm) Current Visit: Yes Status: Chronic Code(s): I71.4 - ABDOMINAL AORTIC ANEURYSM, WITHOUT RUPTURE SNOMED Code(s): 073131601 Plan: 1.General surgical consult for abdominal pain evaluation/splenic infarct. 3. Supportive measures. Endoscopy not planned at this time. 4. Will follow with you. Assessment and plan a care discussed with Dr. Viera
--- NOTE | 2017-01-09 14:33 | CDI ---
In responding to this query, please exercise your independent professional judgment. The [facility] Coding Staff and Clinical Documentation Specialists appreciate your assistance in clarifying documentation, maintaining compliance with coding guidelines, accurately documenting patients condition and capturing severity of illness. The fact that a question is asked does not imply that any particular answer is desired or expected. Communication forms are a method of clarifying documentation and are not made part of the Legal Health Record. Thank you in advance for your clarification. Last Revision, May 2015 [place] [address] [facility] [place] [address] Documentation Clarification Form Date: 01/09/2017 2:20:00 PM From: Elza Alcocer CCS, CCDS Admit Date: 01/07/2017 9:10:00 PM Patient Name: Dora Myers Visit Number: [id number] Discharge Date: Dr. Alesia Robles: 81 yo female, admitted with acute abdominal pain. Found to have an AAA with thrombus & possible splenic infarct. History of COPD, CHF, former smoker & uses Home O2. Clinical Indicators: VS: R 20, BP 233/95, PO 95 2Lnc LAB: CO2 38^ Treatment: O2 2Lnc, IV fluid bolus & IV fluid, IV Morphine, IV Apresoline, IV Rocephin. In your professional opinion, can you please clarify if these findings signify one of the following conditions? Acuity: o Chronic o Other Respiratory Status: o Respiratory failure o Respiratory failure with hypercapnia o Respiratory failure with hypoxia o Other Diagnosis, please specify o Unable to determine Please document in your progress notes and discharge summary in order to capture severity of illness and risk of mortality. Include clinical findings that support your diagnosis. FYI: Press F11 to launch patient chart. LATRICE
--- NOTE | 2017-01-09 16:07 | P.PN ---
Subjective Progress Note Date: 01/09/17 Progress note being dictated for Dr. Robles Interval history: 01/09/17 CT reported splenic infarct, AAA;surgery consult in place with recommendations pending. Abdominal pain improving. Diet intake fair, consuming 25% of regular diet. No nausea, vomiting or diarrhea. No bleeding. Hemoglobin 11.2. Afebrile, WBC 11.3. Maintaining O2 sat of 100% on 4 L nasal cannula, but desats to 70% with activity on 3 L nasal cannula. Objective - Vital Signs Vital signs: Vital Signs Temp 97.8 F 01/09/17 07:00 Pulse 74 01/09/17 12:01 Resp 16 01/09/17 12:01 BP 176/77 01/09/17 08:46 Pulse Ox 70 L 01/09/17 12:51 Intake & Output 01/08/17 01/09/17 01/09/17 18:59 06:59 18:59 Weight 35.7 kg Other: Voiding Method Bedpan # Voids 2 3 - Exam PHYSICAL EXAM: VITAL SIGNS: As above GENERAL: Sitting up in bed, no acute distress HEENT: Conjunctivae normal. eyes normal. NECK: No JVD. No thyroid enlargement. No LNs CARDIOVASCULAR: S1, S2 muffled. No murmur RESPIRATION: Breath sounds diminished in the bases. No rhonchi or crackles. No bronchial breathing. ABDOMEN: Soft, nondistended, mild midepigastric to mid- abdominal tenderness radiating to bilateral flanks . No guarding. no masses palpable. Bowel sounds heard. LEGS: No edema. no swelling PSYCHIATRY: Alert and oriented -3, mood and affect normal. NERVOUS SYSTEM: Cranial N 2-12 grossly normal. Moves all 4 limbs. Diffuse weakness. No focal deficits. No sensory deficit. No signs of cerebellar dysfucntion. Skin: no ulcer no rash Joints: No active swelling. No inflammation. Lymphatic system. No LN neck axilla or groin. - Labs CBC & Chem 7: 01/09/17 07:28 01/09/17 07:28 Labs: Abnormal Lab Results - Last 24 Hours (Table) 01/09/17 01/09/17 01/09/17 Range/Units 07:28 07:28 07:28 WBC 11.3 H (3.8-10.6) k/uL RBC 3.65 L (3.80-5.40) m/uL Hgb 11.2 L (11.4-16.0) gm/dL MCV 102.2 H (80.0-100.0) fL MCHC 30.1 L (31.0-37.0) g/dL RDW 15.9 H (11.5-15.5) % PT 26.8 H (9.0-12.0) sec INR 2.8 H (<1.2) Chloride 109 H (98-107) mmol/L BUN 19 H (7-17) mg/dL Microbiology - Last 24 Hours (Table) 01/07/17 20:32 Urine Culture - Final Urine,Voided Assessment and Plan Plan: #1 abdominal pain unsure of the exact etiology.: Patient is being evaluated for splenic infarct, possibly peptic ulcer disease. Elevated amylase. #2 history of COPD appears to be acute exacerbation #3 coronary artery disease #4 abdominal aortic aneurysm #5 severe protein calorie malnutrition #6 severe pulmonary hypertension #8 chronic atrial fibrillation for which patient and anti-coagulation with Coumadin Plan: Continue on current medication regime , PPI, nebulized bronchodilators, steroids ,monitoring. Surgical consult in place, recommendations pending. Maintain supportive care. The impression and plan of care has been dictated as directed. : I performed a history and examination of this patient, discussed the same with the dictator. I agree with the dictator's note ,documented as a scribe. Any additional findings or plans will be noted.
[2017-01-09] MEDS: WARFARIN 2 MG TAB PO SCH (17:14)
--- NOTE | 2017-01-09 17:32 | P.GSCN ---
History of Present Illness Consult date: 01/09/17 History of present illness: This is an 81 year old female who presented with a chief complaint of abdominal pain which wraps around her side both the left and the right side. She's never had anything like this before. She is slightly confused and a poor historian and a large part of the H&P was obtained from chart review. She was admitted 3 weeks ago for a fall and hip fracture. She is now having persistent pain. She has a history of a perforated gastric ulcer along with a perforation during a colonoscopy both of which required surgery. She was unable to recall when or what type of surgery she had. She states that the pain began when she fell 3 weeks ago. Nothing seems to make the pain better or worse. She denies any nausea or vomiting. She is having bowel movements. She denies any fevers or chills or recent illnesses. No other complaints at this time. She is on Coumadin for A. fib and has a history of a AAA. Past Medical History Past Medical History: Atrial Fibrillation, Heart Failure, COPD, GI Bleed, Hypertension, Liver Disease, Pneumonia, Respiratory Disorder Additional Past Medical History / Comment(s): Home O2 at 2L/NC most of the time , bilateral leg blockages and an aortic aneurysm being monitored by dr. pena. 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 Vertigo. History of Any Multi-Drug Resistant Organisms: None Reported Additional Past Surgical History / Comment(s): STOMACH REPAIR FROM BLEEDING IN 2007. COLONOSCOPY IN 2007 WHERE HER BOWEL WAS NICKED AND SHE WENT FOR SURGICAL REPAIR. ONE OVARY REMOVED DUE TO CYST YEARS AGO. Bilateral cataract surgery Hip surgery 2016 Past Anesthesia/Blood Transfusion Reactions: No Reported Reaction Additional Past Anesthesia/Blood Transfusion Reaction / Comm: PT RECIEVED BLOOD 45YRS AGO AFTER MISCARRIAGE-NO REACTION. Past Psychological History: No Psychological Hx Reported Additional Psychological History / Comment(s): PT LIVES ALONE BUT SON AND GIRLFRIEND LIVE NEXT DOOR AND HELP HER WITH ANYTHING SHE NEEDS. NORMALLY SHE IS UP AND ABOUT ALL THE TIME. USES A WALKER AT TIMES. Has home O2/nebulizer. Pt has not driven since February 2016, she quit driving in case she would have a syncopal episode-family takes her to appts. Smoking Status: Former smoker Past Alcohol Use History: None Reported Past Drug Use History: None Reported - Past Family History Father Family Medical History: Coronary Artery Disease (CAD), Myocardial Infarction (NE ) Additional Family Medical History / Comment(s): FATHER AT AGE 66 OF [place] Mother Family Medical History: No Reported History Additional Family Medical History / Comment(s): MOTHER AT AGE 82 OF "OLD AGE" Medications and Allergies Home Medications Medication Instructions Recorded Confirmed Type Acetaminophen Tab [Tylenol] 650 mg PO Q4H PRN 01/05/14 01/07/17 History Amiodarone [Cordarone] 200 mg PO DAILY 01/05/14 01/07/17 History Atorvastatin [Lipitor] 10 mg PO HS 01/05/14 01/07/17 History Cholecalciferol [Vitamin D3] 400 unit PO DAILY 01/05/14 01/07/17 History Multivitamins, Thera [Multivitamin 1 tab PO DAILY 01/05/14 01/07/17 History (formulary)] Omeprazole [PriLOSEC] 40 mg PO AC-BRKFST 01/05/14 01/07/17 History Metoprolol Tartrate [Lopressor] 25 mg PO BID #60 tab 01/10/14 01/07/17 Rx Famotidine [Pepcid] 20 mg PO BID 11/06/15 01/07/17 History Latanoprost Ophth [Xalatan 0.005%] 1 drops BOTH EYES HS 11/12/16 01/07/17 History Aspirin 81 mg PO DAILY 11/20/16 01/07/17 Rx HYDROcodone/APAP 5-325MG [Hamer 1 tab PO Q6HR PRN #20 tab 11/20/16 01/07/17 Rx 5-325] Ipratropium-Albuterol Nebulize 3 ml INHALATION RT-Q2H PRN neb 11/20/16 Rx [Duoneb 0.5 mg-3 mg/3 ml Soln] Ipratropium-Albuterol Nebulize 3 ml INHALATION RT-QID neb 11/20/16 01/07/17 Rx [Duoneb 0.5 mg-3 mg/3 ml Soln] traMADol HCl [Ultram] 50 mg PO Q6H PRN #20 tab 11/20/16 01/07/17 Rx Fluticasone/Vilanterol [Breo 1 puff INHALATION RT-DAILY 01/07/17 01/07/17 History Ellipta 100-25 Mcg Inhaler] Furosemide [Lasix] 40 mg PO DAILY 01/07/17 01/07/17 History Sennosides-Docusate Sodium 2 tab PO HS 01/07/17 01/07/17 History [Senokot-S] Simethicone [Gas-X] 125 mg PO HS PRN 01/07/17 01/07/17 History Venelex Ointment 1 applic TOPICAL DAILY PRN 01/07/17 01/07/17 History Venelex Ointment 1 applic TOPICAL HS 01/07/17 01/07/17 History Warfarin [Coumadin] 2 mg PO DAILY 01/07/17 01/07/17 History Allergies Allergy/AdvReac Type Severity Reaction Status Date / Time No Known Allergies Allergy Verified 01/07/17 19:38 Surgical - Exam Osteopathic Statement: *. No significant issues noted on an osteopathic structural exam other than those noted in the History and Physical/Consult. Vital Signs Temp Pulse Resp BP Pulse Ox 98.3 F 66 20 233/95 95 01/07/17 19:20 01/07/17 19:20 01/07/17 19:20 01/07/17 19:20 01/07/17 19:20 - General well developed, well nourished, no distress - Eyes PERRL - ENT normal pinna, normal nares - Neck trachea midline - Respiratory normal expansion, normal respiratory effort - Cardiovascular Rhythm: regularly irregular - Abdomen Abdomen: soft, non tender, surgical scars (midline) - Neurologic normal coordination, normal sensation - Psychiatric oriented to time, oriented to person, oriented to place Results - Labs 01/09/17 07:28 01/09/17 07:28 Abnormal Lab Results - Last 24 Hours (Table) 01/09/17 01/09/17 01/09/17 Range/Units 07:28 07:28 07:28 WBC 11.3 H (3.8-10.6) k/uL RBC 3.65 L (3.80-5.40) m/uL Hgb 11.2 L (11.4-16.0) gm/dL MCV 102.2 H (80.0-100.0) fL MCHC 30.1 L (31.0-37.0) g/dL RDW 15.9 H (11.5-15.5) % PT 26.8 H (9.0-12.0) sec INR 2.8 H (<1.2) Chloride 109 H (98-107) mmol/L BUN 19 H (7-17) mg/dL Microbiology - Last 24 Hours (Table) 01/07/17 20:32 Urine Culture - Final Urine,Voided Diabetes panel 01/09/17 Range/Units 07:28 Sodium 144 (137-145) mmol/L Potassium 4.4 (3.5-5.1) mmol/L Chloride 109 H (98-107) mmol/L Carbon Dioxide 26 (22-30) mmol/L BUN 19 H (7-17) mg/dL Creatinine 0.88 (0.52-1.04) mg/dL Glucose 94 (74-99) mg/dL Calcium 9.5 (8.4-10.2) mg/dL Calcium panel 01/09/17 Range/Units 07:28 Calcium 9.5 (8.4-10.2) mg/dL Pituitary panel 01/09/17 Range/Units 07:28 Sodium 144 (137-145) mmol/L Potassium 4.4 (3.5-5.1) mmol/L Chloride 109 H (98-107) mmol/L Carbon Dioxide 26 (22-30) mmol/L BUN 19 H (7-17) mg/dL Creatinine 0.88 (0.52-1.04) mg/dL Glucose 94 (74-99) mg/dL Calcium 9.5 (8.4-10.2) mg/dL Adrenal panel 01/09/17 Range/Units 07:28 Sodium 144 (137-145) mmol/L Potassium 4.4 (3.5-5.1) mmol/L Chloride 109 H (98-107) mmol/L Carbon Dioxide 26 (22-30) mmol/L BUN 19 H (7-17) mg/dL Creatinine 0.88 (0.52-1.04) mg/dL Glucose 94 (74-99) mg/dL Calcium 9.5 (8.4-10.2) mg/dL - Imaging CT scan - abdomen: report reviewed, image reviewed Assessment and Plan (1) Splenic infarction Current Visit: Yes Status: Acute Code(s): D73.5 - INFARCTION OF SPLEEN SNOMED Code(s): 58219527 Plan: At this time the patient is complaining of some abdominal pain however her physical exam was a benign abdomen. At this time the patient is stable. She may also have a mild pancreatitis as she had elevated lipase and amylase. I would recommend continued medical therapy. No plan for acute surgical intervention at this time. She'll likely be able to follow up with me as an outpatient.
[2017-01-09] MEDS: ATORVASTATIN 10 MG TAB PO SCH (20:51)
[2017-01-09] MEDS: SENNOSIDES-DOCUSATE SODIUM 1 EACH TAB PO SCH (20:51)
[2017-01-10] MEDS: HYDROcodone/APAP 5-325MG 1 EACH TAB PO PRN (00:14)
[2017-01-10] MEDS: IPRATROPIUM-ALBUTEROL 3 ML NEB INHALATION SCH ×4 (07:08→19:39)
[2017-01-10] MEDS: SYMBICORT 80-4.5 MCG INHALER INHALATION SCH ×2 (07:08→19:39)
[2017-01-10 07:55] LABS: Basophils % (A) 0 %; CH 30.5; CHCM 30.3; Eosinophils # (A) 0.2 k/uL (0-0.7); Eosinophils % (A) 1 %; HCT 38.6 % (34.0-46.0); HGB 11.7 gm/dL (11.4-16.0); Hypochromasia Moderate; Luc # (Auto) 0.38; Luc % (Auto) 2; Lymphocytes # (A) 2.7 k/uL (1.0-4.8); Lymphocytes % (A) 17 %; MCH 30.7 pg (25.0-35.0); MCHC 30.3 g/dL (31.0-37.0); MCV 101.2 fL (80.0-100.0); Macrocytosis Slight; Mean Platelet Volume 8.3; Monocytes % (A) 6 %; Neutrophils # (A) 11.4 k/uL (1.3-7.7); Neutrophils % (A) 73 %; RBC 3.81 m/uL (3.80-5.40); RDW 14.9 % (11.5-15.5); WBC 15.7 k/uL (3.8-10.6); WBC (Perox) 16.45
[2017-01-10 07:59] LABS: INR 3.7 (<1.2)
[2017-01-10] MEDS: FUROSEMIDE 40 MG TAB PO SCH (08:01)
[2017-01-10] MEDS: PANTOPRAZOLE 40 MG/10 ML VIAL IVP SCH (08:01)
[2017-01-10] MEDS: AMIODARONE 200 MG TAB PO SCH (08:01)
[2017-01-10] MEDS: METOPROLOL TARTRATE 25 MG TAB PO SCH ×2 (08:01→22:09)
[2017-01-10] MEDS: ASPIRIN 81 MG PO SCH (08:01)
[2017-01-10 08:49] LABS: Anion Gap 6 mmol/L; Blood Urea Nitrogen 17 mg/dL (7-17); Calcium 9.5 mg/dL (8.4-10.2); Carbon Dioxide 36 mmol/L (22-30); Chloride 103 mmol/L (98-107); Glucose 130 mg/dL (74-99); Non-African American GFR(MDRD) 60 (>60 ml/min/1.73 sqM); Potassium 4.1 mmol/L (3.5-5.1); Sodium 145 mmol/L (137-145)
[2017-01-10] MEDS: predniSONE 20 MG TAB PO SCH (08:51)
--- NOTE | 2017-01-10 17:18 | P.PN ---
Subjective Progress Note Date: 01/10/17 Progress note being dictated for Dr. Robles Interval history:81-year-old female with recent hip fracture came back with severe and but an abdominal pain she says has been going on for about 2-3 weeks and the patient initially believed to have peptic ulcer disease and patient had a perforated peptic ulcer in the past 10 years ago patient's symptoms didn't improve because of which patient was a admitted to the hospital patient came to the hospital from a subacute rehab facility patient's aseptic 10 x 10 pain has been going on for about a week although patient appears to be comfortable and the patient had a CAT scan of the abdomen which do which did show abdominal aortic aneurysm which is with the thrombosis thrombus and possibility of infarction the spleen area beyond that no other abnormality was appreciated patient was a valid by gastroneurology patient will be started on Protonix does have other multiple medical problems including COPD may be in slight exacerbation is low with expiratory wheezing. in any fever chills dysuria nausea vomiting cough. Since pain is in the abdomen upper abdominal area and across the upper abdomen just below the thorax 01/09/17 CT reported splenic infarct, AAA;surgery consult in place with recommendations pending. Abdominal pain improving. Diet intake fair, consuming 25% of regular diet. No nausea, vomiting or diarrhea. No bleeding. Hemoglobin 11.2. Afebrile, WBC 11.3. Maintaining O2 sat of 100% on 4 L nasal cannula, but desats to 70% with activity on 3 L nasal cannula. 01/10/2017 evaluated by surgery, nonsurgical at this time, recommend outpatient follow-up. Complaining of weakness, increased shortness of breath. Maintaining O2 sats of mid 90s on 3 L nasal cannula. Afebrile, CBC 15.7. INR 3.7. Diet intake fair. Objective - Vital Signs Vital signs: Vital Signs Temp 97.8 F 01/10/17 14:58 Pulse 68 01/10/17 15:41 Resp 18 01/10/17 14:58 BP 132/64 01/10/17 14:58 Pulse Ox 95 01/10/17 15:41 Intake & Output 01/09/17 01/10/17 01/10/17 18:59 06:59 18:59 Intake Total 240 Balance 240 Intake: Oral 240 Other: Voiding Method Bedpan Toilet # Voids 3 1 4 - Exam PHYSICAL EXAM: VITAL SIGNS: As above GENERAL: Sitting up in bed, no acute distress HEENT: Conjunctivae normal. eyes normal. NECK: No JVD. No thyroid enlargement. No LNs CARDIOVASCULAR: S1, S2 muffled. No murmur RESPIRATION: Breath sounds diminished in the bases. scattered rhonchi, no crackles. ABDOMEN: Soft, nondistended, mild midepigastric to mid- abdominal tenderness radiating to bilateral flanks . No guarding. no masses palpable. Bowel sounds heard. LEGS: No edema. no swelling PSYCHIATRY: Alert and oriented -3, mood and affect normal. NERVOUS SYSTEM: Cranial N 2-12 grossly normal. Moves all 4 limbs. Diffuse weakness. No focal deficits. No sensory deficit. Skin: no ulcer no rash Joints: No active swelling. No inflammation. Lymphatic system. No LN neck axilla or groin. - Labs CBC & Chem 7: 01/10/17 07:41 01/10/17 07:41 Labs: Abnormal Lab Results - Last 24 Hours (Table) 01/10/17 01/10/17 01/10/17 Range/Units 07:41 07:41 07:41 WBC 15.7 H (3.8-10.6) k/uL MCV 101.2 H (80.0-100.0) fL MCHC 30.3 L (31.0-37.0) g/dL Neutrophils # 11.4 H (1.3-7.7) k/uL PT 36.0 H (9.0-12.0) sec INR 3.7 H (<1.2) Carbon Dioxide 36 H (22-30) mmol/L Glucose 130 H (74-99) mg/dL Assessment and Plan Plan: #1 abdominal pain unsure of the exact etiology.: Patient is being evaluated for splenic infarct, possibly peptic ulcer disease. Elevated amylase. Nonsurgical. #2 history of COPD appears to be acute exacerbation #3 coronary artery disease #4 abdominal aortic aneurysm #5 severe protein calorie malnutrition #6 severe pulmonary hypertension #8 chronic atrial fibrillation for which patient and anti-coagulation with Coumadin Plan: Continue on current medication regime , PPI, nebulized bronchodilators, steroids ,monitoring. Surgery's recommendations noted and appreciated. Pulmonary consult initiated. Discharge planning in progress for tomorrow for return back to [facility]. The impression and plan of care has been dictated as directed. : I performed a history and examination of this patient, discussed the same with the dictator. I agree with the dictator's note ,documented as a scribe. Any additional findings or plans will be noted.
[2017-01-10] MEDS: ATORVASTATIN 10 MG TAB PO SCH (22:09)
[2017-01-10] MEDS: SENNOSIDES-DOCUSATE SODIUM 1 EACH TAB PO SCH (22:10)
[2017-01-10 23:28] VITALS: RESP 16
[2017-01-11] MEDS: FUROSEMIDE 40 MG TAB PO SCH (08:03)
[2017-01-11] MEDS: AMIODARONE 200 MG TAB PO SCH (08:03)
[2017-01-11] MEDS: ASPIRIN 81 MG PO SCH (08:03)
[2017-01-11] MEDS: PANTOPRAZOLE 40 MG/10 ML VIAL IVP SCH (08:03)
[2017-01-11] MEDS: METOPROLOL TARTRATE 25 MG TAB PO SCH (08:03)
[2017-01-11] MEDS: predniSONE 20 MG TAB PO SCH (08:03)
[2017-01-11 08:06] LABS: Prothrombin Time 28.8 sec (9.0-12.0)
[2017-01-11] MEDS: SYMBICORT 80-4.5 MCG INHALER INHALATION SCH (08:26)
[2017-01-11] MEDS: IPRATROPIUM-ALBUTEROL 3 ML NEB INHALATION SCH ×3 (08:26→16:13)
--- NOTE | 2017-01-11 13:42 | P.CNPUL ---
History of Present Illness Consult date: 01/11/17 Reason for consult: COPD History of present illness: 81-year-old female patient with advanced and chronic end-stage COPD, with known history of chronic hypoxic respiratory failure, presented to the hospital because of abdominal pain a few weeks duration. The patient has also had a recent fall with fracture to have requiring surgical ORIF. The patient is also known to have previous history of peptic ulcer disease with previous perforated peptic ulcer approximately more than 10 years ago. Was asked to evaluate this patient's pulmonary status and COPD. In terms of her abdominal pain, the patient had a CAT scan of the abdomen that showed a 5 cm abdominal aortic aneurysm with a thrombus and aneurysm measuring 2 cm in size. There was a hypodense area within the spleen, involving the posterior lateral aspect of the spleen that could've been related in an infarct. There is cortical atrophy in the left lower pole of the kidney. There is cardiomegaly and chronic pulmonary scarring in lung bases bilaterally. The patient was also found to have osteoporotic compression fracture of the T12 spine. The patient has a therapeutic PT/INR as the patient is and evaluated on long-term basis regarding chronic atrial fibrillation. No nausea. No vomiting features tolerating her diet. No other respiratory difficulties for now. Surgical consultation was obtained and there is no evidence of any acute surgical abdomen or any other interventions at this point. Review of Systems Constitutional: Reports fatigue, Reports poor appetite, Reports weakness Eyes: denies blurred vision, denies bulging eye, denies decreased vision Ears: bilateral: decreased hearing, deny: ear discharge, earache Ears, nose, mouth and throat: Denies headache, Denies sore throat Cardiovascular: Reports dyspnea on exertion, Reports shortness of breath Respiratory: Reports cough, Reports dyspnea, Reports home oxygen Gastrointestinal: Reports abdominal pain Genitourinary: Denies dysuria, Denies hematuria Musculoskeletal: Reports low back pain Musculoskeletal: absent: ankle pain, ankle stiffness, ankle swelling Integumentary: Denies pruritus, Denies rash Neurological: Denies numbness, Denies weakness Psychiatric: Denies anxiety, Denies depression Endocrine: Denies fatigue, Denies weight change Past Medical History Past Medical History: Atrial Fibrillation, Heart Failure, COPD, GI Bleed, Hypertension, Liver Disease, Pneumonia, Respiratory Disorder Additional Past Medical History / Comment(s): Chronic COPD which is severe and the patient is oxygen dependent at 2 L/m nasal cannula, doubt aortic aneurysm, peripheral vascular disease, spinal stenosis, compression fracture of the T12 spine, chronic atrial fibrillation maintained on anticoagulation, previous history of GI bleed, previous history of peptic ulcer disease, hypertension, chronic old granulomatous lesion of the liver, chronic malnourishment and cachexia and impaired performance and functional status. History of Any Multi-Drug Resistant Organisms: None Reported Additional Past Surgical History / Comment(s): Surgical repair of peptic ulcer disease, colonoscopy in 2007, bowel surgery following a bowel perforation related to the colonoscopy, removal of an ovarian cysts, Past Anesthesia/Blood Transfusion Reactions: No Reported Reaction Additional Past Anesthesia/Blood Transfusion Reaction / Comment(s): PT RECIEVED BLOOD 45YRS AGO AFTER MISCARRIAGE-NO REACTION. Past Psychological History: No Psychological Hx Reported Additional Psychological History / Comment(s): PT LIVES ALONE BUT SON AND GIRLFRIEND LIVE NEXT DOOR AND HELP HER WITH ANYTHING SHE NEEDS. NORMALLY SHE IS UP AND ABOUT ALL THE TIME. USES A WALKER AT TIMES. Has home O2/nebulizer. Pt has not driven since February 2016, she quit driving in case she would have a syncopal episode-family takes her to appts. Smoking Status: Former smoker Past Alcohol Use History: None Reported Past Drug Use History: None Reported - Past Family History Father Family Medical History: Coronary Artery Disease (CAD), Myocardial Infarction ([place] ) Additional Family Medical History / Comment(s): FATHER AT AGE 66 OF [place] Mother Family Medical History: No Reported History Additional Family Medical History / Comment(s): MOTHER AT AGE 82 OF "OLD AGE" Medications and Allergies Home Medications Medication Instructions Recorded Confirmed Type Acetaminophen Tab [Tylenol] 650 mg PO Q4H PRN 01/05/14 01/07/17 History Amiodarone [Cordarone] 200 mg PO DAILY 01/05/14 01/07/17 History Atorvastatin [Lipitor] 10 mg PO HS 01/05/14 01/07/17 History Cholecalciferol [Vitamin D3] 400 unit PO DAILY 01/05/14 01/07/17 History Multivitamins, Thera [Multivitamin 1 tab PO DAILY 01/05/14 01/07/17 History (formulary)] Omeprazole [PriLOSEC] 40 mg PO AC-BRKFST 01/05/14 01/07/17 History Metoprolol Tartrate [Lopressor] 25 mg PO BID #60 tab 01/10/14 01/07/17 Rx Famotidine [Pepcid] 20 mg PO BID 11/06/15 01/07/17 History Latanoprost Ophth [Xalatan 0.005%] 1 drops BOTH EYES HS 11/12/16 01/07/17 History Aspirin 81 mg PO DAILY 11/20/16 01/07/17 Rx HYDROcodone/APAP 5-325MG [[place] 1 tab PO Q6HR PRN #20 tab 11/20/16 01/07/17 Rx 5-325] Ipratropium-Albuterol Nebulize 3 ml INHALATION RT-Q2H PRN neb 11/20/16 Rx [Duoneb 0.5 mg-3 mg/3 ml Soln] Ipratropium-Albuterol Nebulize 3 ml INHALATION RT-QID neb 11/20/16 01/07/17 Rx [Duoneb 0.5 mg-3 mg/3 ml Soln] traMADol HCl [Ultram] 50 mg PO Q6H PRN #20 tab 11/20/16 01/07/17 Rx Fluticasone/Vilanterol [Breo 1 puff INHALATION RT-DAILY 01/07/17 01/07/17 History Ellipta 100-25 Mcg Inhaler] Furosemide [Lasix] 40 mg PO DAILY 01/07/17 01/07/17 History Sennosides-Docusate Sodium 2 tab PO HS 01/07/17 01/07/17 History [Senokot-S] Simethicone [Gas-X] 125 mg PO HS PRN 01/07/17 01/07/17 History Venelex Ointment 1 applic TOPICAL DAILY PRN 01/07/17 01/07/17 History Venelex Ointment 1 applic TOPICAL HS 01/07/17 01/07/17 History Warfarin [Coumadin] 2 mg PO DAILY 01/07/17 01/07/17 History Allergies Allergy/AdvReac Type Severity Reaction Status Date / Time No Known Allergies Allergy Verified 01/07/17 19:38 Physical Exam Vitals: Vital Signs Temp Pulse Pulse Resp BP BP Pulse Ox 01/11/17 11:49 68 01/11/17 11:38 68 01/11/17 10:30 182/81 01/11/17 08:43 64 01/11/17 08:27 64 01/11/17 07:00 97.7 F 63 16 182/81 99 01/11/17 00:05 144/82 01/10/17 23:00 98.0 F 94 16 196/86 95 01/10/17 19:52 72 01/10/17 19:39 70 01/10/17 15:41 68 95 01/10/17 15:31 70 01/10/17 14:58 97.8 F 109 H 18 132/64 99 Intake and Output 01/10/17 01/11/17 01/11/17 22:59 06:59 14:59 Intake Total 200 Balance 200 Intake: Oral 200 Other: Voiding Method Toilet # Voids 2 1 1 # Bowel Movements 0 0 Weight 32 kg Appearance the patient is thin frail elderly female patient, quite cachectic.Head exam was generally normal. There was no scleral icterus or corneal arcus. Mucous membranes were moist.Neck was supple and without jugular venous distension, thyromegaly, or carotid bruits. Carotids were easily palpable bilaterally. There was no adenopathy. Lung sounds are diminished bilaterally with significant drop in breath sounds at lung bases bilaterally along with that there is some few scattered expiratory wheeze. Heart sounds are distant, positive S1-S2, there is no significant murmurs appreciated.Abdominal exam revealed normal bowel sounds. The abdomen was soft, non-tender, and without masses, organomegaly, or appreciable enlargement of the abdominal aorta.Examination of the extremities revealed easily palpable radial, femoral and pedal pulses. There was no cyanosis, clubbing or edema.Examination of the skin revealed no evidence of significant rashes, suspicious appearing nevi or other concerning lesions. Neurologically the patient is awake and alert and there is no focal neurological deficit at this point. Results - Laboratory Findings CBC and BMP: 01/10/17 07:41 01/10/17 07:41 PT/INR, D-dimer PT 28.8 sec (9.0-12.0) H 01/11/17 07:36 INR 3.0 (<1.2) H 01/11/17 07:36 Abnormal lab findings: Abnormal Labs 01/07/17 01/07/17 01/07/17 19:41 19:41 19:41 WBC RBC 3.70 L Hgb MCV MCHC RDW 15.8 H Neutrophils # PT 23.6 H INR 2.5 H Chloride Carbon Dioxide 38 H BUN 37 H Glucose AST 39 H Amylase 188 H Urine Appearance Urine Protein Ur Leukocyte Esterase Urine WBC Ur Squamous Epith Cells Urine Bacteria Urine Mucus 01/07/17 01/08/17 01/08/17 20:32 09:30 09:30 WBC RBC 3.48 L Hgb 10.7 L MCV 100.9 H MCHC 30.4 L RDW 16.1 H Neutrophils # PT INR Chloride Carbon Dioxide BUN Glucose AST Amylase 169 H Urine Appearance Cloudy H Urine Protein 1+ H Ur Leukocyte Esterase Moderate H Urine WBC 22 H Ur Squamous Epith Cells 8 H Urine Bacteria Few H Urine Mucus Rare H 01/09/17 01/09/17 01/09/17 07:28 07:28 07:28 WBC 11.3 H RBC 3.65 L Hgb 11.2 L MCV 102.2 H MCHC 30.1 L RDW 15.9 H Neutrophils # PT 26.8 H INR 2.8 H Chloride 109 H Carbon Dioxide BUN 19 H Glucose AST Amylase Urine Appearance Urine Protein Ur Leukocyte Esterase Urine WBC Ur Squamous Epith Cells Urine Bacteria Urine Mucus 01/10/17 01/10/17 01/10/17 07:41 07:41 07:41 WBC 15.7 H RBC Hgb MCV 101.2 H MCHC 30.3 L RDW Neutrophils # 11.4 H PT 36.0 H INR 3.7 H Chloride Carbon Dioxide 36 H BUN Glucose 130 H AST Amylase Urine Appearance Urine Protein Ur Leukocyte Esterase Urine WBC Ur Squamous Epith Cells Urine Bacteria Urine Mucus 01/11/17 07:36 WBC RBC Hgb MCV MCHC RDW Neutrophils # PT 28.8 H INR 3.0 H Chloride Carbon Dioxide BUN Glucose AST Amylase Urine Appearance Urine Protein Ur Leukocyte Esterase Urine WBC Ur Squamous Epith Cells Urine Bacteria Urine Mucus Assessment and Plan Plan: Assessment 1 advanced COPD currently inactive and stable. The patient has chronic hypoxic history failure. The patient has goal stage IV COPD 2 chronic hypoxic respiratory failure secondary to above 3 abdominal pain subsided. The patient is having some lower back pain probably later to a parotic compression fracture of the T12 spine 4 recent right hip fracture/right femoral neck fracture, post ORIF 5 abdominal or thing aneurysm 6 peripheral vascular disease 7 spinal stenosis 8 protein calorie malnutrition 9 peptic ulcer disease with a previous surgical repair of a bleeding peptic ulcer 2006 12 chronic atrial fibrillation and to go ventilation with warfarin with therapeutic PT/INR Plan Primary status is stable. Continue Breo Ellipta for COPD. Continue DuoNeb nebulized treatments around the clock. Continue oxygen therapy. Continue anticoagulation maintaining an INR between 2 and 3. We'll follow up this patient office. Discharged per medicine.
--- NOTE | 2017-01-11 14:14 | P.DS ---
Providers Date of admission: 01/07/17 21:10 Expected date of discharge: 01/11/17 Attending physician: Gavin Robles Consults: 01/07/17 21:09 Consult Physician Routine Consulting Provider: Cal Gaviria Consult Reason/Comments: abdpain Do you want consulting provider notified?: Yes 01/08/17 09:53 Consult Physician Routine Consulting Provider: Juan Antonio Shah Consult Reason/Comments: abd pain Do you want consulting provider notified?: Already Contacted 01/10/17 15:10 Consult Physician Routine Consulting Provider: Ryne Hastings Consult Reason/Comments: hypoxia Do you want consulting provider notified?: Yes Primary care physician: Magui Kim Hospital Course: Final Diagnoses: #1 abdominal pain unsure of the exact etiology, subsided. Evaluated by surgery for splenic infarct, possibly peptic ulcer disease-no endoscopy at this time as per GI. Elevated amylase. Nonsurgical. #2 chronic hypoxic respiratory failure related to advanced COPD not acute exacerbation-stable. #3 coronary artery disease #4 abdominal aortic aneurysm #5 severe protein calorie malnutrition #6 severe pulmonary hypertension #8 chronic atrial fibrillation for which patient and anti-coagulation with Coumadin #9 chronic lower back pain, spinal stenosis #10 recent right hip fracture/right femoral neck fracture, post ORIF Hospital course:81-year-old female with recent hip fracture came back with severe and but an abdominal pain she says has been going on for about 2-3 weeks and the patient initially believed to have peptic ulcer disease and patient had a perforated peptic ulcer in the past 10 years ago patient's symptoms didn't improve because of which patient was a admitted to the hospital from [facility]. CT reported splenic infarct, AAA, evaluated by surgery, nonsurgical. Evaluated by GI, maintained on PPI with no endoscopy recommended at this time. Evaluated by pulmonary with [id number] nebulizers recommended. Abdominal pain subsided. Significant clinical improvement. Patient has been cleared by consults for discharge. Patient is being discharged to [facility] in a stable condition with guarded prognosis. The impression and plan of care has been dictated as directed. : I performed a history and examination of this patient, discussed the same with the dictator. I agree with the dictator's note ,documented as a scribe. Any additional findings or plans will be noted. Patient Condition at Discharge: Stable Plan - Discharge Summary New Discharge Prescriptions: New predniSONE 10 mg PO DIRECTED #30 tab Ipratropium-Albuterol Nebulize [Duoneb 0.5 mg-3 mg/3 ml Soln] 3 ml INHALATION Q6H #1 ampul.neb Continue Cholecalciferol [Vitamin D3] 400 unit PO DAILY Multivitamins, Thera [Multivitamin (formulary)] 1 tab PO DAILY Atorvastatin [Lipitor] 10 mg PO HS Amiodarone [Cordarone] 200 mg PO DAILY Acetaminophen Tab [Tylenol] 650 mg PO Q4H PRN PRN Reason: Fever And/ Or Pain Omeprazole [PriLOSEC] 40 mg PO AC-BRKFST Metoprolol Tartrate [Lopressor] 25 mg PO BID #60 tab Latanoprost Ophth [Xalatan 0.005%] 1 drops BOTH EYES HS Aspirin 81 mg PO DAILY Ipratropium-Albuterol Nebulize [Duoneb 0.5 mg-3 mg/3 ml Soln] 3 ml INHALATION RT-Q2H PRN neb PRN Reason: Shortness Of Breath Or Wheezing Fluticasone/Vilanterol [Breo Ellipta 100-25 Mcg Inhaler] 1 puff INHALATION RT -DAILY Furosemide [Lasix] 40 mg PO DAILY Simethicone [Gas-X] 125 mg PO HS PRN PRN Reason: Gi Upset Venelex Ointment 1 applic TOPICAL HS Venelex Ointment 1 applic TOPICAL DAILY PRN PRN Reason: Wound Healing Warfarin [Coumadin] 2 mg PO DAILY Sennosides-Docusate Sodium [Senokot-S] 2 tab PO HS HYDROcodone/APAP 5-325MG [[place] 5-325] 1 tab PO Q6HR PRN #20 tab PRN Reason: Pain traMADol HCl [Ultram] 50 mg PO Q6H PRN #20 tab PRN Reason: Mild To Moderate Pain Discontinued Famotidine [Pepcid] 20 mg PO BID Discharge Medication List Acetaminophen Tab [Tylenol] 650 mg PO Q4H PRN 01/05/14 [History] Amiodarone [Cordarone] 200 mg PO DAILY 01/05/14 [History] Atorvastatin [Lipitor] 10 mg PO HS 01/05/14 [History] Cholecalciferol [Vitamin D3] 400 unit PO DAILY 01/05/14 [History] Multivitamins, Thera [Multivitamin (formulary)] 1 tab PO DAILY 01/05/14 [History ] Omeprazole [PriLOSEC] 40 mg PO AC-BRKFST 01/05/14 [History] Metoprolol Tartrate [Lopressor] 25 mg PO BID #60 tab 01/10/14 [Rx] Latanoprost Ophth [Xalatan 0.005%] 1 drops BOTH EYES HS 11/12/16 [History] Aspirin 81 mg PO DAILY 11/20/16 [Rx] Ipratropium-Albuterol Nebulize [Duoneb 0.5 mg-3 mg/3 ml Soln] 3 ml INHALATION RT -Q2H PRN neb 11/20/16 [Rx] Fluticasone/Vilanterol [Breo Ellipta 100-25 Mcg Inhaler] 1 puff INHALATION RT- DAILY 01/07/17 [History] Furosemide [Lasix] 40 mg PO DAILY 01/07/17 [History] Sennosides-Docusate Sodium [Senokot-S] 2 tab PO HS 01/07/17 [History] Simethicone [Gas-X] 125 mg PO HS PRN 01/07/17 [History] Venelex Ointment 1 applic TOPICAL DAILY PRN 01/07/17 [History] Venelex Ointment 1 applic TOPICAL HS 01/07/17 [History] Warfarin [Coumadin] 2 mg PO DAILY 01/07/17 [History] HYDROcodone/APAP 5-325MG [[place] 5-325] 1 tab PO Q6HR PRN #20 tab 01/11/17 [Rx] Ipratropium-Albuterol Nebulize [Duoneb 0.5 mg-3 mg/3 ml Soln] 3 ml INHALATION Q6H #1 ampul.neb 01/11/17 [Rx] predniSONE 10 mg PO DIRECTED #30 tab 01/11/17 [Rx] traMADol HCl [Ultram] 50 mg PO Q6H PRN #20 tab 01/11/17 [Rx] Follow up Appointment(s)/Referral(s): Magui Kim MD [Primary Care Provider] - 1 Week (after dc from [facility]) Mega Hills MD [STAFF PHYSICIAN] - 3 Days (while at [facility]) Ryne Hastings MD [STAFF PHYSICIAN] - 2 Weeks Patient Instructions/Handouts: Abdominal Pain (ED) Activity/Diet/Wound Care/Special Instructions: [facility] Resume Coumadin tomorrow Daily DT/INR cbc,bmp in 3 days.
[2017-01-11 15:11] VITALS: BP 146/65; TEMP 97.6
[2017-01-11] MEDS ORDERED: POLYETHYLENE GLYCOL 3350 17 GM POWD.PACK PO STA (15:39)
[2017-01-11 16:25] VITALS: PULSE 72
== END 2017-01-11 17:08 | DRG 814 ==
LOC: EC 19:11 → 4MS4W 21:10
PROVIDERS: ADMIT Hospitalist; ATTEND Hospitalist
DX: D73.5 Infarction of spleen (principal); E43 Unspecified severe protein-calorie malnutrition; J96.11 Chronic respiratory failure with hypoxia; I27.20 Pulmonary hypertension, unspecified; K85.90 Acute pancreatitis without necrosis or infection, unspecified; J44.1 Chronic obstructive pulmonary disease with (acute) exacerbation; I11.0 Hypertensive heart disease with heart failure; I50.9 Heart failure, unspecified; M80.08XA Age-related osteoporosis with current pathological fracture, vertebra(e), initial encounter for fracture; K27.9 Peptic ulcer, site unspecified, unspecified as acute or chronic, without hemorrhage or perforation; I16.0 Hypertensive urgency; I48.2 Chronic atrial fibrillation; Z99.81 Dependence on supplemental oxygen; I25.10 Atherosclerotic heart disease of native coronary artery without angina pectoris; I71.4 Abdominal aortic aneurysm, without rupture; I73.9 Peripheral vascular disease, unspecified; G89.29 Other chronic pain; M48.00 Spinal stenosis, site unspecified; K76.9 Liver disease, unspecified; R79.1 Abnormal coagulation profile; T45.515A Adverse effect of anticoagulants, initial encounter; S72.001D Fracture of unspecified part of neck of right femur, subsequent encounter for closed fracture with routine healing; Z79.82 Long term (current) use of aspirin; Z79.01 Long term (current) use of anticoagulants; Z79.899 Other long term (current) drug therapy; Z91.81 History of falling; Z87.11 Personal history of peptic ulcer disease; Z87.01 Personal history of pneumonia (recurrent); Z98.42 Cataract extraction status, left eye; Z98.41 Cataract extraction status, right eye; Z90.721 Acquired absence of ovaries, unilateral; Z87.891 Personal history of nicotine dependence
CPT/HCPCS: 36415; 74177; 80048; 80053; 81001; 82150; 82550; 82553; 83605; 83690; 85025; 85027; 85610; 85730; 87086; 93005; 94640; 94760; 96361; 96374; 96375; 99285